=== PATIENT | male | born 1970 | race Caucasian/White ===

== ENCOUNTER → 2016-07-22 | Outpatient (CLI) | payer BC ==
[~2016-07-22] VITALS: Ht 182.9 cm; Wt 84.8 kg
[~2016-07-22] MED LIST: AMBIEN 5 MG TABL5 M1 PO; ANASPAZ0.125 MG SUBLING; APAP500 PO; ARANESP 6060 MCG/0.3 IJ; ARANESP40 MCG/1 M IJ; ATIVAN0.5 MG PO; BACTROBAN22 GM TOP; BENADRYL25 MG PO; BETADINE240 ML TP; BETADINE30 ML TOP; BETASEPT946 ML TOP; BISACODYL SUPP10 MG RECTAL; CATAPRES-TTS 10.1 M1 TRANSDERM; CHOLESTYRAMI239.4 GM PO; CREON DR 12,001 EACH PO; DAKIN'S473 M1 TOP; DEX4 GLUCOSE1 EACH; DEXTROSE 500.5 GM/M1 IV; DEXTROSE 5025 GM/SYR IV; DILAUDID4 MG PO; DURAGESIC25 MCG/HR TP; ENOXAPARIN30 MG/0.1 SUBQ; FENTANYL 1100 MCG/HR TRANSDERM; FENTANYL PA50 MCG/HR TRANSDERM; FENTANYL PATCH75 MCG TRANSDERM; FLORANEX PACKET1 GM PO; GABAPENTIN 100100 MG PO; GENTAMICIN 0.1%15 G2 TOP; GLUCAGON EMERGEN1 MG IJ; GLUCAGON EMERGEN1 MG IM; GLUCOSE BITS1 GM PO; GLUCOSE GEL38 GM; GLUCOSE GEL38 GM PO; HEPARIN 1,100 UNIT/1 IV; HYDROMORPHONE ER8 MG PO; IPRAT-ALBUT 0.5-3 ML IH; JUVEN PACKET1 EACH PO; KETOCONAZOLE60 GM TOP; LEVEMIR100 UNIT/1 SUBQ; LEVOTHYROXIN0.025 MG PO; LEVOTHYROXIN0.125 M1 PO; LEVOTHYROXINE 0.1 MG PO; LOMOTIL TABLET1 EACH PO; LOPERAMIDE 2 MG2 M1 PO; LOPRESSOR25 PO; MEPILEX1 EACH; MORPHINE 44 MG/1 ML IV; MORPHINE TOP; MS CONTIN15 MG PO; NEPHRO-VITE RX1 TA1 PO; NORVASC2.5 MG PO; NOVOLOG100 UNIT/1 SUBQ; ONDANSETRON HCL4 M2 SUBQ; ORAZINC220 MG PO; PEPCID20 MG PO; PROBIOTIC1 EAC1 PO; PROCRIT 1010000 U/ML SUBQ; REGLAN 10 MG TA10 MG PO; RENA-VITE TABL0.8 MG; RENO CAPS SOFTGE1 MG PO; RENVELA800 MG PO; SANTYL OINTMENT30 G1 TP; SERTRALINE HCL50 MG PO; SILVADENE20 GM TP; SSD CREAM 1% 5050 GM TOP; TRAZODONE HCL100 MG PO; TUMS PO; VANCOCIN 250 M250 M1 PO; VANCOMYCIN100 MG/ML PO; [UNRECOGNIZED DRUG - CODE] SUBQ; [UNRECOGNIZED DRUG - OTHER] TOP; [UNRECOGNIZED DRUG - SUPPLY] TP
[2016-07-22 13:13] VITALS: BP 149/75
[2016-07-22 14:15] VITALS: BP 138/75
== END | disposition home or self-care (01) ==
LOC: ULTRA 06:35 → SPEC 06:35
DX: E46 Unspecified protein-calorie malnutrition (principal)

== ENCOUNTER 2016-09-15 08:58 | Inpatient (IN) | payer BC, OTHER ==
[~2016-09-15] VITALS: Ht 182.9 cm; Wt 87.6 kg
[2016-09-15] VITALS (16 sets, daily range): BP systolic 66–164; BP diastolic 34–103
--- NOTE | ~2016-09-15 | HC ---
[facility] [place] [address] CONSULTATION Name: COYLEJOHANA Room #: 427-P [facility] IN .R.#: [id number] Admission: 09/15/16 Attend Phys: Celsa Alcantara Discharge: Date of : 68 Report #: [id number] THIS REPORT FOR: //name// CC: Norman Alcantara REASON FOR CONSULTATION: End-stage renal disease. REASON FOR PRESENTATION: Hypoxemia. HISTORY OF PRESENT ILLNESS: The patient is well known to me. He has a previous medical history of end-stage renal disease due to diabetes mellitus. He had numerous hospitalizations for many issues in the last year or so. Specifically, he was admitted with ischemic digits of both upper extremities and lower extremities. He also suffered from sacral decubitus ulcers. He had a gangrenous gallbladder that was complicated by peritonitis. He has transferred from the [facility] after being found to be hypoxic. He dialyzes every Monday, Monday and Monday. I was asked to manage his end-stage renal disease. He has been on dialysis for a long time. His end-stage renal disease was attributed to diabetes mellitus. He previously was on PD. On presentation to the Emergency Room, hypoxia was confirmed and he was placed on oxygen supplement and his oxygen saturation has improved significantly. On his chest CT ruled out pulmonary embolism. PAST MEDICAL HISTORY: 1. End-stage renal disease, on dialysis. 1. Hyperlipidemia. 2. Diabetes mellitus. 3. Remote history of peritoneal dialysis catheter insertion and removal. 4. Peripheral arterial disease with multiple ischemic digits and multiple amputations of the digits and the toes. 5. Peripheral arterial . 6. Sacral decubitus. 7. Perforated or gangrenous gallbladder. 8. Status post colostomy. 9. Status post PEG tube. 10. Left IJ tunneled catheter. ALLERGIES: GLUTEN. MEDICATIONS: 1. Included calcium acetate. 2. Metoprolol. 3. Insulin. 4. Multivitamin. FAMILY HISTORY: No known chronic family history, chronic kidney disease in his family. His grandfather was diabetic. [facility] [address] [place] [address] CONSULTATION Name: COYLEJOHANA Room #: 427-P [facility] IN .R.#: [id number] Admission: 09/15/16 Attend Phys: Celsa Alcantara Discharge: Date of : 68 Report #: [id number] REVIEW OF SYSTEMS: GENERAL: No fever or chills. CARDIOVASCULAR: No chest pain, but significant shortness of breath. PULMONARY: No cough or hemoptysis. GASTROINTESTINAL: No nausea or vomiting. He utilizes the PEG tube for tube feeding during the night. GENITOURINARY: No significant urine outputs. MUSCULOSKELETAL: As per the history of present illness regarding his . PHYSICAL EXAMINATION: GENERAL: He was alert, oriented, on high oxygen. VITAL SIGNS: His blood pressure was marginal at 105/70. He was on nonrebreather mask of 10 L. He was afebrile. CHEST: Minimal crackles. CARDIOVASCULAR: No rub detected, soft systolic murmur. ABDOMEN: Colostomy tube with a PEG tube. LOWER EXTREMITIES: Dressing applied with multiple missing digits and toes, in both upper and lower extremities. LABORATORY DATA: Reviewed. No elevated white blood cells. His potassium was fine. His chest CT was personally reviewed. ASSESSMENT, IMPRESSION AND PLAN: 1. End-stage renal disease. 2. Hypoxemia. 3. Brittle diabetes. 4. Peripheral arterial disease. 5. Sacral decubiti. 6. Status post colostomy. 7. Status post PEG tube. 8. Appropriate workup has been initiated. Cultures were obtained, appropriate antibiotics were started. We will attempt aggressive ultrafiltration in the morning. Might need sequential dialysis with aggressive ultrafiltration as this does not truly seemed to be pneumonitis picture, it is likely to be fluid overload. I will try to talk with his disaster director at [facility] regarding the ultrafiltration. 9. Resume his blood sugar regimen. 10. Routine end-stage renal disease care. <ELECTRONICALLY SIGNED> By: Ramakrishna Rivera MD 09/19/16 0745 [id number] Pollo Arenas MD /nt
--- NOTE | ~2016-09-15 | 2DMMODE ---
[facility] [place] [address] 2 D/M-MODE ECHOCARDIOGRAM Name: COYLEJOHANA Room #: 427-P [facility] IN [facility]#: [id number] Admission: 09/15/16 Attend Phys: Norman Baker Discharge: Date of : 68 Date of Service: 09/16/16 1607 Report #: [id number] THIS REPORT FOR: //name// APPROVED REPORT EXAM: Comprehensive 2D, Doppler, and color-flow Echocardiogram Patient Location: Bedside Blood Pressure: 132/72 mmHg HR: 92 bpm Other Information Study Quality: Excellent Indications Diabetes Congestive Heart Failure 2D Dimensions RVDd: 51.94 mm LVEF(%): 43.73 (>50%) IVSd: 15.20 (7-11mm) LVOT Diam: 25.07 (18-24mm) LVDd: 56.22 mm PWd: 15.41 (7-11mm) Ascending Aorta: 45.19 mm LVDs: 43.91 (25-40mm) IVC: 26.00 mm Aortic Root: 42.00 mm Jackson's LVEF: 43.73 % Volumes Left Atrial Volume (Systole) Single Plane 4CH: 105.84 mL Single Plane 2CH: 118.02 mL Aortic Valve AoV Peak Benoit.: 1.54 m/s AO Peak Gr.: 9.46 mmHg LV Max P.83 mmHg LV Max: 1.21 m/s Mitral Valve MV PHT: 107.04 ms MV E Max Benoit.: 1.34 m/s E/A Ratio: 0.9 MV A Benoit.: 1.52 m/s MV Decel. Time: 369.10 ms Pulmonary Valve PV Peak Benoit.: 1.37 m/s PV Peak Gr.: 3.44 mmHg [facility] [place] [address] [place] [address] 2 D/M-MODE ECHOCARDIOGRAM Name: JONNAJOHANA Room #: 427-P [facility] IN .R.#: [id number] Admission: 09/15/16 Attend Phys: Norman Baker Discharge: Date of : 68 Date of Service: 09/16/16 1607 Report #: [id number] End Vmax: 1.37 m/s Tricuspid Valve TR Peak Benoit.: 3.13 m/s RAP Estimate: 10.00 mmHg TR Peak Gr.: 39.14 mmHg Left Ventricle Left ventricle is borderline dilated. Global left ventricular dysfunction Mild to moderate concentric left ventricular hypertrophy. Left ventricular systolic function is moderately decreased. LVEF is 40%. Grade I - abnormal relaxation pattern. Right Ventricle Right ventricle is dilated. The right ventricular systolic function is normal. Atria Left atrium is dilated. Right atrium is dilated. Aortic Valve The aortic valve is mildly calcified Trace to mild aortic regurgitation. There is no aortic valvular stenosis. Mitral Valve Mild mitral annular calcification. Mild mitral regurgitation. Tricuspid Valve The tricuspid valve is normal in structure. There is trace tricuspid regurgitation. The right atrial pressure is estimated at 10 mmHg. There is trace tricuspid regurgitation. The right atrial pressure is estimated at 10 mmHg. There is mild-moderate pulmonary hypertension.The estimated PAP was 49 mmHg. Pulmonic Valve The pulmonary valve is normal in structure. Trace pulmonic regurgitation. Great Vessels The aortic root is normal in size. IVC is dilated and collapses >50% with inspiration. Pericardium There is no pericardial effusion. <Conclusion> [facility] [place] [address] 2 D/M-MODE ECHOCARDIOGRAM Name: JOHANA COYLE Debo Room #: 427-P ADM IN .R.#: [id number] Admission: 09/15/16 Attend Phys: Norman Baker Discharge: Date of : 68 Date of Service: 09/16/161606 Report #: [id number] Left ventricular systolic function is moderately decreased. Global left ventricular dysfunction. LVEF is 40%. Left atrium is dilated. The aortic valve is mildly calcified. Trace to mild aortic regurgitation; no stensis. Mild mitral annular calcification. Mild mitral regurgitation. The estimated pulmonary artery pressure was 49 mmHg. There is no pericardial effusion. Pleural effusion present. <ELECTRONICALLY SIGNED> By: Christ Lee MD, [facility] 09/16/161606 06 160 Christ Lee MD, FACC /INF
--- NOTE | ~2016-09-15 | H ---
[facility] [place] [address] HISTORY AND PHYSICAL Name: JOHANA COYLE Room #: 241-P ADM IN .R.#: [id number] Admission: 09/15/16 Attend Phys: Celsa Alcantara Discharge: Date of : 68 Report #: [id number] THIS REPORT FOR: //name// CC: Norman Alcantara DATE OF SERVICE: 09/15/2016 CHIEF COMPLAINT: Shortness of breath. HISTORY OF PRESENT ILLNESS: The patient is a 46-year-old gentleman with multiple medical problems who sent to the Emergency Room today from [facility] facility for evaluation of shortness of breath. Early this morning, he complained of trouble breathing and he was noted to have room air saturation of low 80s and ABG was performed which confirmed PO2 even on 10 liters nasal cannula of only 56. He was sent to the Emergency Room and a CT chest showed no pulmonary embolus, but diffuse fluffy infiltrates bilaterally. He is more comfortable on a nonrebreather currently. PAST MEDICAL HISTORY: Diabetes type 1, end-stage renal disease, peripheral artery disease. He has had multiple lower extremity amputations and finger amputations. He has had nonhealing abdominal small bowel fistula, anemia of chronic disease. PAST SURGICAL HISTORY: Multiple amputations, wound debridements. FAMILY HISTORY: Noncontributory. SOCIAL HISTORY: No chronic alcohol or tobacco use. He has been hospitalized for almost a year related to his wounds and dialysis. ALLERGIES: He has some food intolerances. MEDICATIONS: Please see electronic list. REVIEW OF SYSTEMS: He denies headache, chest pain, abdominal pain, nausea, vomiting, dysuria, syncope or fall. PHYSICAL EXAMINATION: VITAL SIGNS: Temperature 36.3, pulse 100, respirations 20, blood pressure 167/103. GENERAL: He is awake and alert, lying in bed. HEAD AND NECK: Unremarkable. LUNGS: Clear anteriorly. HEART: Regular. ABDOMEN: Soft, normoactive bowel sounds. PEG tube in place. Fistula bag continuing bowel contents. [facility] [address] [place] [address] HISTORY AND PHYSICAL Name: JOHANA COYLE Debo Room #: [facility] IN [facility].#: [id number] Admission: 09/15/16 Attend Phys: Celsa Alcantara Discharge: Date of : 68 Report #: [id number] EXTREMITIES: No edema. He has multiple finger amputations, bilateral. LABORATORY DATA: His white count is normal with hemoglobin 10. CTA of the chest shows extensive pulmonary infiltrates and effusions in the lung base. ASSESSMENT: 1. Acute hypoxic respiratory failure. 2. End-stage renal disease. 3. Diabetes type 1. 4. Peripheral artery disease with multiple amputations. 5. Chronic enterocutaneous abdominal wall fistula. 6. Anemia of chronic disease. PLAN: He will be admitted to ICU right now due to his general hypoxia or hypoxemia. Antibiotics have been ordered to cover for infectious process at this point, but given there is no fever, elevated white count, other etiologies including fluid overload or pleural effusions would be entertained. I have asked the pulmonary, renal and ID services to see him as well. Home medications and tube feeding to continue. <ELECTRONICALLY SIGNED> By: Bj Augustin MD 09/15/16 1852 [id number] [id number] Bj Augustin MD /nt
--- NOTE | ~2016-09-15 | HC ---
[facility] [place] [address] CONSULTATION Name: JOHANA COYLE Debo Room #: 427-P ADM IN M.R.#: [id number] Admission: 09/15/16 Attend Phys: Celsa Alcantara Discharge: Date of : 68 Report #: [id number] THIS REPORT FOR: //name// CC: Norman Alcantara DATE OF SERVICE: 09/16/2016 PERSONAL PHYSICIAN: Isaias Alcantara MD CHIEF COMPLAINT: Multiple decubitus ulcers. HISTORY OF PRESENT ILLNESS: This is a 46-year-old white male with a history of multiple medical conditions including end-stage renal disease, longstanding and uncontrolled diabetes mellitus and history of multiple decubitus ulcers who I have been taking care of for the past several months. The patient yesterday was at his long-term acute care facility when he was complaining of shortness of breath and had a significant drop in his O2 saturation. He was sent to the Emergency Department. They were looking for a pulmonary embolus of which none was found. However, there were diffuse infiltrates bilaterally noted. The patient was admitted to the intensive care unit. I have been asked to see the patient in regards to his ulcerations. The patient actually this morning was alert, conversant and in no severe distress. PAST MEDICAL HISTORY: Includes type 1 diabetes, end-stage renal disease, peripheral arterial disease, multiple lower extremity and finger amputations secondary to ischemia as well as history of anemia of chronic disease, multiple decubitus ulcers and is status post ileostomy, which has high output as well as a PEG tube placement. DRUG ALLERGIES: GLUTEN. CURRENT MEDICATIONS: Multiple, I reviewed the patient's medication list. REVIEW OF SYSTEMS: The patient denies chest pain, shortness of breath, nausea, vomiting, fevers or chills. The patient did have shortness of breath yesterday, this has now resolved. Denies musculoskeletal complaint. PHYSICAL EXAMINATION: VITAL SIGNS: Temperature 36.3, pulse 100, respirations 20, BP 167/103. GENERAL: This is an alert and oriented x 3, chronic ill-appearing white male who is in no acute distress at this time. HEENT: Normocephalic, atraumatic. Mucous membranes are dry. Pupils are round. Sclerae white. LUNGS: Coarse breath sounds at the bases. HEART: Tachycardic. ABDOMEN: Soft, ileostomy is in place with high output. PEG tube is in place [address] [address] CONSULTATION Name: JOHANA COYLE Room #: 427-P [facility].#: [id number] Admission: 09/15/16 Attend Phys: Celsa Alcantara Discharge: Date of : 68 Report #: [id number] without excoriation. Abdomen is otherwise nontender. Evaluation of sacrococcygeal reveals resolving stage 4 ulceration, which is clean, granulating. The edges are slightly rolled in. There are no signs of necrosis. There is no evidence of any odor, drainage of serosanguineous. No evidence of any bony involvement at this time. Periulcer is intact. EXTREMITIES: The patient moves all extremities spontaneously, however, has decreased movement of the lower extremities. Bilateral heels show unstageable decubitus ulcers with dry yellow eschar. There is also posterior calf and lateral lower extremity stage 3 decubitus ulcers, which are mixed with granulation tissue approximately 75% and 25% slough. NEUROLOGIC: Cranial nerves 2-12 are grossly intact. Motor and sensory grossly intact. LABORATORY DATA: White count 6.3, hemoglobin 9.6, glucose on admission was 399. IMPRESSION: 1. Stage 4 decubitus ulcer, sacrococcygeal region, overall improving. 2. Bilateral unstageable decubitus ulcers to heels, overall improved. 3. Bilateral lower extremity stage 3 decubitus ulcers in the posterolateral region of the lower extremities. 4. Diabetes mellitus type 1. 5. End-stage renal disease, on hemodialysis. 6. Protein-calorie malnutrition -- severe. 7. Generalized debility. PLAN: At this time, we will resume a wound VAC on the sacrococcygeal region, which is what the patient has been on at the [facility] where I have been following him. 125 mmHg continuous with black foam. We will start the patient on Mepilex Ag foam to the bilateral heels and posterior lower extremity ulcerations. Continue to have patient on low air loss mattress and the patient turned every 2 hours. We will use heel protection at all times. We will make sure we maximize the patient's tube feeding supplementation for protein, nutrition at night. The patient will be allowed to eat as much as he wants during the day on his renal and ADA diet. We will continue to follow the patient. I appreciate the ability to consult. By: [id number] Ryan Yen MD /nt
--- NOTE | ~2016-09-15 | HC ---
[facility] [place] [address] CONSULTATION Name: JOHANA COYLE Debo Room #: 427-P ADM IN .R.#: [id number] Admission: 09/15/16 Attend Phys: Celsa Alcantara Discharge: Date of : 68 Report #: [id number] THIS REPORT FOR: //name// CC: Norman Alcantara PRIMARY CARE PHYSICIAN: Dr. Norman Alcantara. REASON FOR REFERRAL: Hypoxia. HISTORY OF PRESENT ILLNESS: The patient is a 46-year-old white male with multiple medical problems, brought to the Emergency Room with hypoxia and dyspnea. A pulmonary consultation was requested. The patient has a long history of diabetes mellitus type 1 with comorbid conditions. He has end-stage renal disease, severe peripheral vascular disease requiring multiple partial amputation of his digits. He has also been very sick, past year having hospitalized for almost 3 months due to complications of his diabetes. The patient has end-stage renal disease, undergoing hemodialysis. He has sustained numerous wounds including intraabdominal abscess. He was last hospitalized in March of 2016. Since then he has done fair until the last few days, he started to feel uncomfortable. He was not hypoxic. Symptoms persisted were today his O2 saturation was checked and was said to be quite low. He was then transferred to the Emergency Room. CT chest angiogram performed in the ER revealed mild to moderate bilateral pleural effusion, mild bilateral infiltrates. No evidence of pulmonary embolus is noted. He is currently on nonrebreather. Saturation is adequate. He says he is short of breath, but denies any chest pain, productive cough. He has been bedridden for the last several months. He has obvious muscle atrophy. He has not walked for the last few months. PAST MEDICAL HISTORY: As mentioned above. Longstanding, he has diabetes mellitus type 1 with end-stage renal disease, peripheral vascular disease with ischemic digits requiring partial amputation involving both upper and lower digits. He has a tunneled right internal jugular vein catheter. In the past, he has had prior peritoneal dialysis, currently he is undergoing hemodialysis. PAST SURGICAL HISTORY: Remarkable for gastric bypass surgery, multiple ischemic wounds with partial amputation of multiple digits, prior cholecystectomy, right hip fracture repair, tib/fib fracture repair. ALLERGIES: Are none to medications. [address] [address] CONSULTATION Name: JOHANA COYLE Room #: 427-P [facility] IN ..#: [id number] Admission: 09/15/16 Attend Phys: Celsa Alcantara Discharge: Date of : 68 Report #: [id number] HOME MEDICATIONS: List are reviewed. FAMILY HISTORY: Notable for diabetes in both grandparents. Parents are alive. SOCIAL HISTORY: The patient is , has 2 children. The patient has been chronically debilitated over the last several months. REVIEW OF SYSTEMS: As mentioned above, otherwise 10-point system review negative. PHYSICAL EXAMINATION: GENERAL: He is awake, alert in moderate respiratory distress. VITAL SIGNS: Temperature is 94% on supplemental O2. Temperature is 98 degrees Fahrenheit, pulse is 100, respiratory rate is 20, blood pressure this 164/100 mmHg. HEENT: Normocephalic, atraumatic. NECK: Supple without lymphadenopathy or thyromegaly. CHEST: Breath sounds are decreased bilaterally due to poor effort. No obvious wheezes or rales. CARDIOVASCULAR: Regular rhythm and rate, heart sounds are distant. No obvious murmurs or gallop. Pulses are 2+/4 bilaterally. ABDOMEN: Soft, nontender, positive for colostomy. No masses felt. No rebound tenderness. GENITOURINARY: Deferred. RECTAL: Deferred. EXTREMITIES: No cyanosis or clubbing. MUSCULOSKELETAL: Remarkable for moderate muscle atrophy. LABORATORY DATA: CT chest angiogram as mentioned above showing no evidence of pulmonary embolus, extensive pulmonary infiltrates, bilateral pleural effusion. Sodium 135, potassium 4.3, chloride 102, CO2 26, BUN is 83, creatinine is 4.9. WBC is 5700, hemoglobin 10.4. IMPRESSION: 1. Acute hypoxic respiratory failure in this 46-year-old white male. Chest CT showed no evidence of pulmonary embolus, but remarkable for bilateral infiltrates and pleural effusion. Volume overload is suspected, but cannot rule out component pneumonia including gram-negative possible aspiration. 2. Diabetes mellitus type 1 with multiple end organ damage. 3. End-stage renal disease on hemodialysis. 4. Severe peripheral vascular disease with multiple partial digit amputation. 5. Chronic enterocutaneous abdominal fistula. 6. Anemia of chronic disease. 7. Debility and weakness along with muscle atrophy. RECOMMENDATION AND DISCUSSION: We will treat for presumed pneumonia. The [address] [address] CONSULTATION Name: JOHANA COYLE Debo Room #: 427-P ADM IN M.R.#: [id number] Admission: 09/15/16 Attend Phys: Celsa Alcantara Discharge: Date of : 68 Report #: [id number] patient should be seen by renal service for ongoing hemodialysis. Suspect patient may be volume overload. We will check echocardiogram. Wean O2 for saturation 90%. We will defer antibiotics to Infectious Disease. DVT and GI prophylaxis will be addressed. Thank you for this consultation. <ELECTRONICALLY SIGNED> By: Arcadio Colorado MD 09/16/16 1330 1447 [id number] Arcadio Colorado MD /nt
--- NOTE | ~2016-09-15 | HC ---
[facility] [place] [address] CONSULTATION Name: JOHANA COYLE Debo Room #: 241-P ADM IN M.R.#: [id number] Admission: 09/15/16 Attend Phys: Celsa Alcantara Discharge: Date of : 68 Report #: [id number] THIS REPORT FOR: //name// CC: Norman Alcantara DATE OF SERVICE: 09/15/2016 REASON FOR CONSULTATION: I was asked to evaluate concerning bilateral pulmonary infiltrates. 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 He has been residing at [facility] for last several months. He developed shortness of breath and was transferred to [facility] Emergency Room with O2 saturation dropping despite high flow oxygen. Imaging studies showed bilateral interstitial and basilar infiltrates associated with bilateral pleural effusions. He has had no cough or sputum production. No gross aspiration. No fever or chills. His white count has been normal. He does have evidence of facial and upper extremity edema. No change in his wounds involving his sacrum and his lower extremities. He has been followed by wound care team at [facility]. Several weeks ago, he finished a course of antibiotics for cystitis. PAST MEDICAL HISTORY, FAMILY HISTORY AND SOCIAL HISTORY: Unchanged from history and physical and the previous consultations. ALLERGIES: None other than intolerance. MEDICATIONS: As noted on his MAR, now on vancomycin, Zosyn and Levaquin. REVIEW OF SYSTEMS: He has end-stage renal disease. He has a left chest dialysis catheter, gastrostomy tube and ileostomy with dumping syndrome. He has significant lactose tolerance and gluten sensitivity. PHYSICAL EXAMINATION: VITAL SIGNS: He is afebrile, hemodynamically stable. Oxygen requirements have dropped down now to 6 liters of oxygen. GENERAL: He was alert, but moderate confusion. This is his baseline. SKIN: Upper extremity and facial edema. EYES: Unremarkable. MOUTH: Unremarkable. LUNGS: Decreased breath sounds bilaterally. HEART: Regular, without murmur. ABDOMEN: Soft. His ileostomy was functional. PEG site was unremarkable. EXTREMITIES: Wounds to both feet, heels and sacrum. He is bedbound. [facility] [address] [place] [address] CONSULTATION Name: JOHANA COYLE Room #: [facility] [place] [facility].#: [id number] Admission: 09/15/16 Attend Phys: Celsa Alcantara Discharge: Date of : 68 Report #: [id number] LABORATORY STUDIES: CT scan of the chest as noted above. Hemoglobin 10.4, white count 5.7, platelet count was 313,000. Sodium 135, potassium 4.3, bicarbonate 26, creatinine 4.9. IMPRESSION: Acute respiratory failure, marked by bilateral effusions and peripheral edema. I suspect fluid overload is a significant issue here. May have a component of pneumonitis as well. RECOMMENDATION: We will continue with broad antibiotic coverage. I doubt we are dealing with atypical bacteria. Continue with dialysis more fluid. Repeat chest x-ray post-dialysis. Continue current wound care. <ELECTRONICALLY SIGNED> By: Jorge Alcantara MD 09/16/16812 23 05 Jorge Alcantara MD /nt
[~2016-09-15 08:58] MED LIST changes: -BENADRYL25 MG PO; -MS CONTIN15 MG PO; -NORVASC2.5 MG PO; -REGLAN 10 MG TA10 MG PO
[2016-09-15 09:24] LABS: ABSOLUTE NEUTROPHILS 4.3 thou/uL (1.4-8.2); BASOPHILS 1.2 % (0.0-2.0); EOSINOPHILS 4.5 % (0.0-3.0); HEMATOCRIT 32.2 % (42.0-52.0); HEMOGLOBIN 10.4 gm/dL (14.0-18.0); MCH 31.4 pg (26.0-34.0); MCHC 32.2 g/dL (28.0-37.0); MCV 97.3 fL (80.0-100.0); MONOCYTES 6.1 % (1.0-8.0); PLATELET COUNT 313 thou/uL (150-400); POLYS 76.2 % (36.0-66.0); RBC 3.31 mil/uL (4.50-6.00); RDW 15.2 % (10.5-14.5); WBC 5.7 thou/uL (4.0-11.0)
[2016-09-15 09:26] LABS: MANUAL DIFF NO
[2016-09-15 09:35] LABS: CALCIUM 9.5 mg/dL (8.5-10.1); CREATININE 4.9 mg/dL (0.6-1.3); POTASSIUM 4.3 mmol/L (3.5-5.1)
[2016-09-15] MEDS ORDERED: NORVASC2.5 MG PO (10:24)
[2016-09-15] MEDS ORDERED: SANTYL OINTMENT30 G1 TP (10:27)
[2016-09-15] MEDS ORDERED: JUVEN PACKET1 EACH PO (10:29)
[2016-09-15] MEDS ORDERED: REGLAN 10 MG TA10 MG PO (10:29)
[2016-09-15] MEDS ORDERED: BENADRYL25 MG PO (10:32)
[2016-09-15] MEDS ORDERED: MS CONTIN15 MG PO (10:44)
[2016-09-16] VITALS (13 sets, daily range): BP systolic 100–163; BP diastolic 65–101
[2016-09-16 05:09] LABS: HEMATOCRIT 30.4 % (42.0-52.0); HEMOGLOBIN 9.6 gm/dL (14.0-18.0); MCH 30.9 pg (26.0-34.0); MCHC 31.5 g/dL (28.0-37.0); MCV 98.1 fL (80.0-100.0); RBC 3.1 mil/uL (4.50-6.00); RDW 15.4 % (10.5-14.5); WBC 6.3 thou/uL (4.0-11.0)
[2016-09-16 05:28] LABS: CALCIUM 9.1 mg/dL (8.5-10.1); CREATININE 5.4 mg/dL (0.6-1.3); POTASSIUM 5.1 mmol/L (3.5-5.1)
[2016-09-17 04:00] VITALS: BP 138/76
[2016-09-17 04:00] LABS: HEMATOCRIT 27.2 % (42.0-52.0); MCH 31.7 pg (26.0-34.0); MCV 96.3 fL (80.0-100.0); RBC 2.83 mil/uL (4.50-6.00); RDW 15.1 % (10.5-14.5); WBC 6.4 thou/uL (4.0-11.0)
[2016-09-17 04:34] LABS: CALCIUM 8.4 mg/dL (8.5-10.1); MAGNESIUM 2.1 mg/dL (1.8-2.4); PHOSPHORUS 4.9 mg/dL (2.5-4.9)
[2016-09-17 04:40] LABS: CREATININE 3.8 mg/dL (0.6-1.3)
[2016-09-17 07:47] VITALS: BP 123/65
[2016-09-17 15:28] VITALS: BP 127/72
[2016-09-17 19:31] VITALS: BP 141/90
[2016-09-18 04:09] VITALS: BP 128/84
[2016-09-18 16:15] VITALS: BP 150/111
[2016-09-18 20:00] VITALS: BP 129/84
[2016-09-19 05:45] VITALS: BP 123/83
[2016-09-19 08:19] VITALS: BP 132/83
[2016-09-19] MEDS ORDERED: AUGMENTIN 500-1 EACH PO (12:39)
[2016-09-19] MEDS ORDERED: FENTANYL PA25 MCG/HR TRANSDERM (12:40)
[2016-09-19 16:07] VITALS: BP 119/74
[2016-09-19 19:32] VITALS: BP 115/75
== END 2016-09-19 20:36 | DRG 291 ==
LOC: ER 08:58 → ICU 10:39 → EROBS 10:39 → ICU 12:52 → 4E 09-16 12:36
PROVIDERS: Emergency Medicine; Internal Medicine Geriatric Medicine; Internal Medicine Pulmonary Disease
PROC: 5A1D60Z (ICD-10-PCS; principal; 2016-09-16)
DX: I13.2 Hypertensive heart and chronic kidney disease with heart failure and with stage 5 chronic kidney disease, or end stage renal disease (principal); J18.9 Pneumonia, unspecified organism; J96.01 Acute respiratory failure with hypoxia; N18.6 End stage renal disease; L89.614 Pressure ulcer of right heel, stage 4; L89.624 Pressure ulcer of left heel, stage 4; L89.893 Pressure ulcer of other site, stage 3; E43 Unspecified severe protein-calorie malnutrition; K63.2 Fistula of intestine; E87.70 Fluid overload, unspecified; L89.159 Pressure ulcer of sacral region, unspecified stage; I50.9 Heart failure, unspecified; E10.22 Type 1 diabetes mellitus with diabetic chronic kidney disease; E10.51 Type 1 diabetes mellitus with diabetic peripheral angiopathy without gangrene; E10.65 Type 1 diabetes mellitus with hyperglycemia; R53.81 Other malaise; D63.1 Anemia in chronic kidney disease; M62.50 Muscle wasting and atrophy, not elsewhere classified, unspecified site; R53.1 Weakness; M19.90 Unspecified osteoarthritis, unspecified site; F41.9 Anxiety disorder, unspecified; F32.9 Major depressive disorder, single episode, unspecified; E03.9 Hypothyroidism, unspecified; R56.9 Unspecified convulsions; R91.8 Other nonspecific abnormal finding of lung field; Z99.2 Dependence on renal dialysis; Z98.84 Bariatric surgery status; Z93.3 Colostomy status; Z87.81 Personal history of (healed) traumatic fracture; Z89.429 Acquired absence of other toe(s), unspecified side; Z89.029 Acquired absence of unspecified finger(s); Z83.3 Family history of diabetes mellitus; Z90.79 Acquired absence of other genital organ(s); Z86.19 Personal history of other infectious and parasitic diseases; Z91.011 Allergy to milk products; Z91.018 Allergy to other foods; Z68.26 Body mass index [BMI] 26.0-26.9, adult
CPT/HCPCS: 10078; 10783; 32100

== ENCOUNTER → 2017-01-24 | Outpatient (CLI) | payer OTHER ==
[~2017-01-24] VITALS: Ht 182.9 cm; Wt 77.1 kg
[~2017-01-24] MED LIST changes: +AUGMENTIN 500-1 EACH PO; +BENADRYL25 MG PO; +FENTANYL PA25 MCG/HR TRANSDERM; +MS CONTIN15 MG PO; +NORVASC2.5 MG PO; +REGLAN 10 MG TA10 MG PO
[2017-01-24 12:31] VITALS: BP 118/64
== END | disposition home or self-care (01) ==
LOC: SPEC 11:28
DX: K91.89 Other postprocedural complications and disorders of digestive system (principal); E10.22 Type 1 diabetes mellitus with diabetic chronic kidney disease; I12.0 Hypertensive chronic kidney disease with stage 5 chronic kidney disease or end stage renal disease; N18.6 End stage renal disease; E10.65 Type 1 diabetes mellitus with hyperglycemia; M19.90 Unspecified osteoarthritis, unspecified site; F41.8 Other specified anxiety disorders; F32.89 Other specified depressive episodes; E03.9 Hypothyroidism, unspecified; Z98.890 Other specified postprocedural states; Z98.84 Bariatric surgery status; Z79.899 Other long term (current) drug therapy; Z91.011 Allergy to milk products; Z79.4 Long term (current) use of insulin; Z99.2 Dependence on renal dialysis

== ENCOUNTER 2017-02-02 16:23 | Inpatient (IN) | payer OTHER ==
[~2017-02-02] VITALS: Ht 182.9 cm; Wt 85.8 kg
--- NOTE | ~2017-02-02 | HC ---
[facility] [place] [address] CONSULTATION Name: JOHANA COYLE Debo Room #: 430-P [facility] IN .R.#: [id number] Admission: 02/02/17 Attend Phys: Tomy Morales MD Discharge: Date of : 68 Report #: [id number] THIS REPORT FOR: //name// CC: Tomy Ruby Sabih DATE OF SERVICE: 02/03/2017 WOUND CARE CONSULTATION HISTORY OF PRESENT ILLNESS: This is a 46-year-old male patient who has had left knee pain for the last several days. He was brought to the emergency department and was seen and found to have a septic arthritis and underwent an arthroscopic incision and drainage of the left knee. He has ongoing issues with pressure ulcerations on his heels and a stage 4 pressure ulcer on the sacrum and I have been asked to see him with regard to wound care. He is complaining of pain in his left knee as well as feeling febrile at this time. He is aware of the ulcerations on his heels and sacral region; these are not new for him. He has currently been living at [facility]. PAST MEDICAL HISTORY: Includes end-stage renal disease, long-standing uncontrolled diabetes mellitus and history of respiratory failure. ALLERGIES: GLUTEN. CURRENT MEDICATIONS: Include Zosyn, vancomycin, sliding scale insulin, hydromorphone and Zofran. FAMILY HISTORY: Noncontributory. REVIEW OF SYSTEMS: CONSTITUTIONAL: The patient does complain of fever and chills. ENT: The patient denies earache, nasal drainage or sore throat. CARDIOVASCULAR: The patient denies chest pain, palpitations or diaphoresis. PULMONARY: The patient denies cough or shortness of breath. GASTROINTESTINAL: The patient denies nausea or abdominal pain. ORTHOPEDIC: The patient has significant pain involving his left knee. Other systems and 12-point review of systems are negative. PHYSICAL EXAMINATION: VITAL SIGNS: At this time include pulse rate 86, respirations 16, blood pressure 110/58 and temperature 98.7. GENERAL: This is a chronically ill-appearing male patient who appears in mild discomfort. HEAD: Normocephalic. NECK: Supple. [facility] [address] [place] [address] CONSULTATION Name: JOHANA COYLE Room #: 430-P [facility] IN .R.#: [id number] Admission: 02/02/17 Attend Phys: Tomy Morales MD Discharge: Date of : 68 Report #: [id number] LUNGS: Clear. HEART: Regular rhythm. ABDOMEN: Soft. EXTREMITIES: Examination of the lower extremities demonstrates a knee brace and an Pradeep wrap in place in his left knee. There is some warmth and erythema to the lower leg. Both heels are examined and demonstrate unstageable pressure ulcerations across the large surface area of both heels, both a mix of fibrin, granulation and a little bit of eschar. No exposed bony structures noted at this time. BACK: Examination of the back and sacral region demonstrates a stage 4 sacral pressure ulceration that is relatively clean and granulating, with a little bit of undermining. No tunneling. No exposed deep structures. CLINICAL IMPRESSION: 1. Unstageable pressure ulcers, bilateral heels. 2. Stage 4 sacral pressure ulceration. 3. Septic arthritis, left knee. 4. Type 1 diabetes mellitus. 5. End-stage renal disease. RECOMMENDATIONS: At this point in time, we will recommend a silver foam-based dressing to the heels and Kerlix, to be changed on every other day and as needed basis for soiling or displacement. We will recommend Puracol Ag and a foam based dressing to the sacral region. He will need to be turned and repositioned every 2 hours. I anticipate orthopedics will continue to follow his knee with drain in place. I appreciate being asked to see him in consultation. <ELECTRONICALLY SIGNED> By: Ignacio Baeza MD 02/03/17 1256 1150 1216 Ignacio Baeza MD /nt
--- NOTE | ~2017-02-02 | HC ---
[facility] [address] [place] [address] CONSULTATION Name: JOHANA COYLE Room #: 430-P ADM IN M.R.#: [id number] Admission: 02/02/17 Attend Phys: Tomy Morales MD Discharge: Date of : 68 Report #: [id number] THIS REPORT FOR: //name// CC: Tomy Ruby Sabih DATE OF SERVICE: 02/05/2017 REASON FOR CONSULTATION: Hospital wound care of patient's bilateral heel and sacral wounds. HISTORY OF PRESENT ILLNESS: The patient is an unfortunate 46-year-old gentleman who is well known to the wound care team from multiple admissions, both at [facility], [facility], and [facility] in [place]. This gentleman suffers from end-stage renal disease, small-vessel disease, and has had multiple wounds and pressure wounds of the body most of which we have healed. He had pressures wounds of the bilateral lateral legs, which have healed. Remaining are bilateral heel wounds and a sacral wound. I last saw the patient at [facility] from which he was discharged and for the last month he has been at [facility]. The patient recently noticed redness, swelling, and tenderness of his left knee and was beginning to feel ill. He was brought to [facility], where he was taken to the operating room on February 02 and had arthroscopic incisions, drainage, and irrigation of a left knee septic arthritis with placement of a Hemovac drain, which has now been removed. The patient remains on IV antibiotics and feels better. Wound care is consulted to care for his wounds. It is noted that he has a right abdominal colostomy with some retraction and excoriation around the skin. The patient has been seen by the stoma nurse, Erlinda Carreno. I am seeing the patient at his bedside with his nurse. PAST MEDICAL HISTORY: 1. End-stage renal disease on hemodialysis. 2. Immobility. 3. Severe protein-calorie malnutrition. Albumin 2.1 on February 02. 4. Diabetes mellitus type 1 with skin ulcers. 5. History of respiratory failure. 6. Septic arthritis of left knee on this admission, treated by arthroscopic incision and drainage. 7. History of depression. MEDICATIONS: Include Glucagon, Creon, NovoLog insulin, insulin detemir, metoclopramide, Benadryl, gabapentin, sertraline, loperamide, Aranesp, levothyroxine, and human recombinant glucagon. PAST SURGICAL HISTORY: History of amputation of gangrenous fingertips. Surgical creation of colostomy. Arthroscopic incision and drainage of left knee [address] [address] CONSULTATION Name: JOHANA COYLE Room #: 430-P [facility] IN .R.#: [id number] Admission: 02/02/17 Attend Phys: Tomy Morales MD Discharge: Date of : 68 Report #: [id number] septic arthritis, February 02. History of penectomy status post gangrene at , 2016. Right hip nailing for fracture, October 2015. History of percutaneous gastrotomy tube, January 2016. PHYSICAL EXAMINATION: GENERAL: Shows a thin, chronically ill-appearing middle-aged male who is alert and conversant. He appears chronically depressed. HEENT: Mucous membranes are moist. NECK: Supple. EXTREMITIES: Upper extremities are normal. ABDOMEN: Shows presence of a colostomy on the right lower quadrant, abdomen is scaphoid. PEG tube is in the left upper quadrant. BACK: Examination of the patient's back shows a chronic stage 4 pressure ulcer measuring approximately 6 cm x 5 cm x 0.3 cm deep. This is relatively clean in line with granulation tissue and some exudate. MUSCULOSKELETAL: Examination of the lower extremities shows healed wounds to the lateral lower legs. There are bilateral deep tissue injuries of the right and the left heel, which are significant, each measuring approximately 4 x 5 cm with significant exudate. IMPRESSION AND PLAN: 1. Right lower quadrant colostomy with some dysfunction and retraction. Erlinda Carreno has seen the patient and is managing colostomy care. Surgeons may see the patient to decide upon any necessary revision. 2. Sacral stage 4 pressure ulcer, chronic, and stable. Continue sacral Mepilex dressing change every other day. 3. Bilateral heel deep tissue pressure injuries. Recommend, we will order Silvadene 1% with Xeroform dressings to be changed daily and bilateral foam boots. 4. Severe protein-calorie malnutrition, maximize nutrition through PEG tube feedings. 5. Left knee septic arthritis. I have not removed the surgeon's dressings; this could be done on Monday. Continue IV antibiotics. 6. End-stage renal disease, continue hemodialysis. 7. Diabetes type 1, diabetes management. Wound Care Team will follow for wounds of his bilateral heels and sacral pressure sore. <ELECTRONICALLY SIGNED> By: Nehemias Gannon MD 02/07/17 0909 1154 190 Nehemias Gannon MD /nt
--- NOTE | ~2017-02-02 | O ---
[facility] [place] [address] OPERATIVE REPORT Name: JOHANA COYLE Debo Room #: 430-P [facility] IN M.R.#: [id number] Admission: 02/02/17 Attend Phys: Zulma North Discharge: Date of : 68 Report #: [id number] THIS REPORT FOR: //name// CC: Zulma North Flori Sabih DATE OF SERVICE: 02/02/2017 DATE OF PROCEDURE: 02/02/2017 SERVICE: Orthopedics. FACILITY: [facility] SURGEON: Wyatt Box M.D. CAR REPOSSESSOR: None. PREOPERATIVE DIAGNOSIS: Left knee septic arthritis. POSTOPERATIVE DIAGNOSIS: Left knee septic arthritis. PROCEDURE: Arthroscopic left knee irrigation and debridement. COMPLICATIONS: None. DRAINS: One Hemovac. SPECIMENS: Aspirate and sent for cultures, aerobic, anaerobic and fungal. ESTIMATED BLOOD LOSS: 5 mL. TOURNIQUET TIME: Zero minutes. FINDINGS: 1. Gross purulence aspirated from the knee. 2. Nine liters of irrigation lavage through the knee. HISTORY AND INDICATIONS: The patient is a 46-year-old male with a history of advanced type 1 diabetes and end-stage renal disease. He presented to the emergency room with this painful swollen knee that was consistent with septic arthritis which is what the aspirate confirmed from the emergency room. He was indicated for surgical treatment. The risks, benefits, alternatives and indications for surgery were discussed with him in detail preoperatively and he wished to undergo surgical management. The risks include but not limited to pain, bleeding, infection, injury to nerves or blood vessels, persistent pain [facility] [address] [place] [address] OPERATIVE REPORT Name: JOHANA COYLE Debo Room #: 430-P [facility] IN M.R.#: [id number] Admission: 02/02/17 Attend Phys: Zulma North Discharge: Date of : 68 Report #: [id number] despite surgical intervention, failure of any procedures, need for further surgery including repeat I and D, progression of any preexisting cartilage, itch injury, stiffness, need for further surgery as well as complications related to anesthesia such as stroke, heart attack, pulmonary complications, thromboembolic disease, and . Despite these risks, he wished to proceed. PROCEDURE IN DETAIL: After left lower extremity was correctly identified in the preoperative holding area as the operative extremity, the patient was taken to the operating room where general anesthesia with LMA was induced without complications. He was padded appropriately. He was already receiving antibiotics from the emergency room after the aspiration. No tourniquet was applied to the left thigh. The left lower extremity was prepped and draped in standard sterile fashion. Time-out procedure was performed. An 18-gauge needle was used to aspirate 10 mL of purulent serosanguineous fluid from the knee and this was sent for Gram stain and culture and then an #11 blade was used to create 2 portal sites. A shaver and scope were placed into the knee and then extensive arthroscopic debridement was performed with the shaver. We lavaged a total of 9 liters of irrigant. After approximately 2 liters, the fluid was clear and continued to debride redundant material and lavaged through the knee to ensure clean wound at this point. The articular cartilage was intact except for some chondromalacia of the patellofemoral joint. The cruciates were intact. The menisci were intact. After the 9 liters were lavaged through the knee, the arthroscopic effusion was drained and 1/8th-inch Hemovac was passed through the anteromedial portal with a tail left intraarticularly out the superolateral aspect of the knee and then the portal sites were closed with a 2-0 nylon. A sterile dressing was applied followed by compression wrap. The patient was awakened from anesthesia and taken to recovery room in stable condition. There were no complications. All counts were recorded as correct. <ELECTRONICALLY SIGNED> By: Wyatt Box MD 02/03/17 0515 [id number] 0115 Wyatt Box MD /nt
--- NOTE | ~2017-02-02 | HC ---
[address] [place] [address] CONSULTATION Name: COYLEJOHANA Room #: 430-P [facility] IN M.R.#: [id number] Admission: 02/02/17 Attend Phys: Tomy Morales MD Discharge: Date of : 68 Report #: [id number] THIS REPORT FOR: //name// CC: Toym Mitchell REASON FOR CONSULTATION: End-stage renal disease. REASON FOR PRESENTATION: Left knee pain. HISTORY OF PRESENT ILLNESS: The patient is very well known to me. He is an end-stage renal disease patient, status maintained on hemodialysis every Monday, Monday, Monday. He is known to have a very complicated past medical history including and not limited to end-stage renal disease, repeated nosocomial infections, sacral decubitus, multiple amputations, peripheral arterial disease, C. diff. He resides at the [facility]. He started to have some left knee pain, associated with redness and increased warmth and fever and chills and presented for further evaluation and management. This had started about 2 days ago. No trauma. All stigmata were pointing to septic arthritis. Orthopedic was consulted on the patient. The patient was evaluated in the emergency room and had an aspirate consistent with pus and purulent discharge from the left knee. This was done arthroscopically. He had also irrigation and debridement. I was consulted to manage his end-stage renal disease. PAST MEDICAL HISTORY: 1. End-stage renal disease. 2. Diabetes mellitus. 3. Peripheral arterial disease. 4. Hypertension. 5. Hypothyroidism. 6. Diabetic triopathy. 7. Status post discectomy. 8. Status post peritonitis with PD catheter removal. 9. Gangrenous cholecystitis. 10. Multiple digits amputations. 11. Tenectomy. 12. C. diff. 13. Repeated episodes of diabetic ketoacidosis. 14. Repeated nosocomial infections. MEDICATIONS: 1. Clonidine. 2. Insulin. 3. Hydromorphone. 4. Gabapentin. 5. Loperamide. 6. Renagel. [facility] [address] [place] [address] CONSULTATION Name: JOHANA COYLE Room #: 430-P [facility] IN .R.#: [id number] Admission: 02/02/17 Attend Phys: Tomy Morales MD Discharge: Date of : 68 Report #: [id number] 7. Levothyroxine. ALLERGIES: GLUTEN and MILK. SOCIAL HISTORY: No drug or alcohol abuse. He resides at the [facility]. REVIEW OF SYSTEMS: CONSTITUTIONAL: Significant for fever. CARDIOVASCULAR: No chest pain or palpitation. PULMONARY: No cough or hemoptysis. GASTROINTESTINAL: No nausea or vomiting. GENITOURINARY: Nonsignificant. MUSCULOSKELETAL: Significant left knee pain. PHYSICAL EXAMINATION: GENERAL: The patient is somewhat lethargic. He received Dilaudid this morning. VITAL SIGNS: Temperature is 37.1. Blood pressure is 110/58, pulse rate is 86, respiratory rate is 22. His T-max was 38.4. HEAD AND NECK: No jugular venous distention. Right IJ tunneled catheter. CHEST: Decreased air entry bilaterally, but no crackles. CARDIOVASCULAR: Regular with no rub detected. ABDOMEN: Soft, nontender with no hepatosplenomegaly. There is a colostomy bag. LOWER EXTREMITIES: Braces applied to the left lower extremities, missing toes. LABORATORY VALUES: Reviewed. White blood cell count 17.9, hemoglobin 8.2, sodium 130, BUN 68, creatinine 5.5, phosphorus 5.7. Synovial fluid aspirate revealed 7500 cells with 90% neutrophils. ASSESSMENT, IMPRESSION AND PLAN: 1. End-stage renal disease. 2. Presumed septic arthritis. 3. Peripheral arterial disease. 4. Diabetes mellitus. 5. Leukocytosis. 6. Repeated nosocomial infections. 7. Status colostomy bag. 8. Numerous other medical problems. 9. Dialysis will be arranged for today. 10. Empiric antibiotics started yesterday. 11. Status post arthrocentesis yesterday. We will follow Gram strain culture and sensitivity. 12. Currently, maintained on vancomycin and Zosyn. [address] [address] CONSULTATION Name: JOHANA COYLE Room #: 430-P [facility] IN M.R.#: [id number] Admission: 02/02/17 Attend Phys: Tomy Morales MD Discharge: Date of : 68 Report #: [id number] 13. Hyponatremia related to fluid overload. 14. We will continue to follow along. <ELECTRONICALLY SIGNED> By: Pollo Arenas MD 02/04/17 1214 0747 [id number] Pollo Arenas MD /nt
--- NOTE | ~2017-02-02 | HC ---
[facility] [place] [place] [address] CONSULTATION Name: JOHANA COYLE Debo Room #: 430-P [facility] IN ..#: [id number] Admission: 02/02/17 Attend Phys: Tomy Morales MD Discharge: Date of : 68 Report #: [id number] THIS REPORT FOR: //name// CC: Tomy Morales Flori Sabih DATE OF SERVICE: 02/04/2017 GENERAL SURGERY CONSULTATION ATTENDING PHYSICIAN: Zulma North MD. REASON FOR CONSULTATION: Retracted colostomy. HISTORY OF PRESENT ILLNESS: This is a 46-year-old male patient, known to our service from previous end colostomy placement. The patient has a complex history including poorly controlled type 1 diabetes mellitus, end-stage renal disease with hemodialysis dependence and peripheral vascular disease. He has required numerous amputations of necrotic digits and his distal penis. He has also undergone a Ericka-en-Y gastric bypass for weight control and to improve his diabetes. He had developed nonhealing stage 4 decubitus wounds and underwent excisional debridement and creation of a diverting end transverse colostomy in the right upper quadrant on 03/25/2016 by my partner, Dr. Norma Zuniga. The patient is now admitted for left knee septic arthritis. He underwent arthroscopic left knee irrigation and debridement on 02/02/2017. We have been consulted to evaluate his colostomy. The stoma itself is retracted and the skin opening is quite small. Despite this, the stoma is functional. While at [facility] prior to his admission here, the opening for the appliance was larger than the skin opening and as a result, he has developed significant excoriation of the skin exposed to the stool. The patient only notes pain in the area when the stoma itself is manipulated. He is tolerating a regular diet. PAST MEDICAL HISTORY: Significant for type 1 diabetes mellitus, chronic kidney disease, end-stage renal disease with hemodialysis dependence, multiple wounds, protein-calorie malnutrition and septic arthritis. PAST SURGICAL HISTORY: Includes multiple lower extremity amputations, finger amputations, partial penectomy, open cholecystectomy with lysis of adhesions, gastrostomy placement into the gastric remnant (no longer present), excisional debridement of stage 4 decubitus wounds and end transverse colostomy creation. CURRENT MEDICATIONS: Include clonidine, sertraline, ferrous sulfate, Reglan, gabapentin, sevelamer, lipase/protease/amylase, levothyroxine, controlled-release morphine, detemir insulin, Zosyn, vancomycin and p.r.n. medications. [address] [address] CONSULTATION Name: JOHANA COYLE Debo Room #: 430-P [facility] IN [facility].#: [id number] Admission: 02/02/17 Attend Phys: Tomy Morales MD Discharge: Date of : 68 Report #: [id number] ALLERGIES: No known drug allergies. FAMILY HISTORY: Reviewed and noncontributory to this hospitalization. SOCIAL HISTORY: The patient is and has 2 children. Denies any use of tobacco, alcohol or illicit drugs. REVIEW OF SYSTEMS: As per history of present illness. In addition: GENERAL: The patient denies fever or chills. Denies unintentional weight loss. HEENT: Denies changes in taste, vision, hearing or smell. RESPIRATORY: Denies shortness of breath, COPD or asthma. CARDIOVASCULAR: Denies chest pain or palpitations. GASTROINTESTINAL: Denies significant abdominal pain, nausea or vomiting. GENITOURINARY: History of end-stage renal disease with hemodialysis dependence 3 times weekly. MUSCULOSKELETAL: Has chronic pain in his back and lower extremities with opioid dependence. NEUROLOGIC: Denies headaches, numbness or tingling. PSYCHIATRIC: Denies suicidal ideations. Has a history of depression. ENDOCRINE: Denies polydipsia, polyuria or heat or cold intolerance. HEMATOLOGIC: Denies easy bleeding, bruising or anemia. All other review of systems is negative. PHYSICAL EXAMINATION: VITAL SIGNS: Temperature 98.5, blood pressure 135/74, pulse 75 and respirations 16. GENERAL: This is a 46-year-old male patient in no acute distress. HEENT: Atraumatic, normocephalic with moist mucosal membranes. Oropharynx is clear. He has no scleral icterus. NECK: Supple. No appreciable lymphadenopathy. Trachea is midline. CHEST: Clear bilaterally. CARDIOVASCULAR: Regular rate and rhythm. ABDOMEN: Soft and nondistended. His right upper quadrant end transverse colostomy is functional; the skin opening is 1 to 1.5 cm, with no significantly exposed mucosa. There is mild excoriation of his surrounding skin. He has no rebound or guarding. No palpable masses otherwise. GENITOURINARY: Partial penectomy changes. NEUROLOGIC: Cranial nerves 2-12 grossly intact. PSYCHIATRIC: Normal mood and affect. SKIN/INTEGUMENTARY: No acute rashes or lesions are seen; coccygeal decubitus ulcer present. EXTREMITIES: No clubbing, cyanosis or edema; he has amputation changes. LABORATORY DATA: CBC from this morning shows a white blood cell count of 10.7, hemoglobin 8.2, hematocrit 25.1 and platelets 329,000. Electrolytes show sodium [address] [address] CONSULTATION Name: JOHANA COYLE Room #: 430-P ADM IN [facility].#: [id number] Admission: 02/02/17 Attend Phys: Tomy Morales MD Discharge: Date of : 68 Report #: [id number], potassium 3.4, chloride 95, CO2 of 28, BUN 35, creatinine 3.7 (5.5 yesterday) and glucose 281. Sed rate is 138. Blood cultures 02/02 are negative, showing no growth. IMPRESSION AND PLAN: This is a 46-year-old male patient with the above-listed comorbidities, who has a retracted stoma with a small opening. The patient's stoma is functional and he is tolerating a regular diet. He may benefit from revision of the stoma, but could try daily dilation of the stoma with specially- designed dilators. No acute surgical intervention is necessary at this time regarding his stoma. He also has decubitus ulcers, for which wound care has been consulted. We are available if needed for excisional debridement. We will follow along with you and make recommendations pending the patient's clinical course. Can continue his regular diet and nocturnal tube feeds as his bowels and stoma remain functional. Continue all other current care. We sincerely appreciate the opportunity to participate in the care of this patient and we will leave further recommendations and orders in the electronic medical record as appropriate. <ELECTRONICALLY SIGNED> By: Roel Rosen MD, FACS 02/05/17 0844 [id number] Roel Rosen MD, FACS /nt
--- NOTE | ~2017-02-02 | HC ---
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 He has currently been over at [facility], working in skilled level therapies. He was readmitted to [facility] with left knee pain, noted to have a septic left knee and underwent I and D on 02/02. Orthopedics is allowing removal of the immobilizer for range of motion. We are seeing him in rehabilitation medicine consultation. PAST MEDICAL HISTORY: Significant for the above. He has had a prior right femur fracture, healthcare-associated pneumonia, multiple wounds, severe protein-calorie malnutrition. He has the brittle diabetes as noted. MEDICATIONS: Please see the full medication listing. ALLERGIES: GLUTEN and MILK. FAMILY HISTORY: Positive for diabetes. HABITS: No history of tobacco, alcohol, or drug abuse. SOCIAL HISTORY Prolonged hospitalizations, LTAC nursing facility as noted above. His lives in a house, 3 floor, she is not currently working. The patient and are apparently planning on doing some kind of remodeling or some kind of changing of , so that the patient would eventually be able to return back to the home setting. REVIEW OF SYSTEMS: Did not offer any current complaints of chest pain, shortness of breath, or abdominal discomfort. He has some left knee discomfort as expected. He does have some discomfort over his sacral area and bilateral heels as expected. PHYSICAL EXAMINATION: GENERAL: A 46-year-old thin white male, currently being dialyzed. He is sleepy, but does respond. Appears appropriate. VITAL SIGNS: Temperature is 98.7, pulse 86, respirations 16, blood pressure 110/58. Nasal prong O2 is in place at 2 liters. HEENT: Facies appeared symmetric. EXTREMITIES: Upper extremities reveal some diffuse atrophy. He has had [facility] [address] [place] [address] CONSULTATION Name: JOHANA COYLE Room #: 430-P [facility] IN [facility].#: [id number] Admission: 02/02/17 Attend Phys: Tomy Morales MD Discharge: Date of : 68 Report #: [id number] multiple distal finger amputations that appear well healed. I would grade his strength at a 3+/5. In his lower extremities, he has the left knee, which is dressed. He has weakness of that left ankle in dorsiflexion, which appears less than antigravity, left ankle eversion is less than antigravity. He can wiggle the toes slightly. Proximal left lower extremity strength is probably a grade 3+/5 with some difficulty to assess with the discomfort with the left knee incision. Right lower extremity, he has better movement probably a grade 3+ to maybe 4-/5. He has definite decreased sensation distally with his peripheral neuropathy. Functionally, he has been mod assist with sit to stand. ASSESSMENT: A 46-year-old white male with the following problem list: 1. Septic left knee status post I and D on 02/02. 2. Brittle insulin-dependent diabetes mellitus. 3. End-stage renal disease, on hemodialysis. 4. Stage IV sacral and bilateral heel wounds. 5. Problem list otherwise as noted above. PLAN: I agree with physical therapy involvement. We will add occupational therapy as well. We would anticipate returning to the skilled level would be most appropriate for him. The patient appears amendable in this regard. Case management to further assist. Thank you for asking us to assist in this patient's care. By: 1416 1453 Bj Khalil MD /nt
--- NOTE | ~2017-02-02 | HC ---
[facility] [address] [place] [address] CONSULTATION Name: JOHANA COYLE Room #: 430-P [facility] IN M.R.#: [id number] Admission: 02/02/17 Attend Phys: Tomy Morales MD Discharge: Date of : 68 Report #: [id number] THIS REPORT FOR: //name// CC: Tomy [facility] INFECTIOUS DISEASES CONSULTATION REASON FOR CONSULTATION: I was asked to evaluate concerning left septic knee arthritis. HISTORY OF PRESENT ILLNESS: The patient was a 46-year-old with diabetes, peripheral vascular disease and end-stage renal disease, who has been institutionalized for extended period of time, mostly related to peripheral vascular wounds and osteomyelitis along with sacral decubitus. He has also had cholecystitis and a small bowel fistula. He was most recently at [facility] and making reasonable progress. He was stating he was getting out of bed and able to ambulate a fair distance with assistance. He had the acute onset of left knee pain several days prior to his admission. The swelling persisted and he presented to the emergency room for further evaluation. He had aspiration, which showed purulent fluid in the knee. He was taken to surgery yesterday for incision and drainage. Cultures now are pending and Gram stain shows no organisms. He has had low-grade fever. Hemodynamically, he has remained stable. No documented recent bacteremia. He has a history of MRSA in his wounds. ALLERGIES: GLUTEN, MILK. PAST MEDICAL HISTORY: Unchanged from his history and physical and that of his previous consultations. FAMILY HISTORY: Unchanged from his history and physical and that of his previous consultations. SOCIAL HISTORY: Unchanged from his history and physical and that of his previous consultations. MEDICATIONS: As noted on his MAR, which were reviewed, including vancomycin and Zosyn. REVIEW OF SYSTEMS: No current cardiovascular issues. His small bowel fistula remains stable. PHYSICAL EXAMINATION: VITAL SIGNS: Currently, afebrile, hemodynamically stable. He is alert and cooperative and pleasant. Maximum temperature was 101 degrees. SKIN: He had ulcers on both heels and a stage 4 sacral ulcer. [facility] [address] [place] [address] CONSULTATION Name: COYLEJOHANA Room #: 430-P [facility] IN [facility].#: [id number] Admission: 02/02/17 Attend Phys: Tomy Morales MD Discharge: Date of : 68 Report #: [id number] HEENT: Unremarkable. CHEST: Clear. HEART: Regular, without murmur. ABDOMEN: Soft. PEG site was unremarkable. His right upper abdomen ostomy site was unremarkable. Abdomen was otherwise soft and nontender. EXTREMITIES: Left knee was in surgical wrap. LABORATORY DATA: Sodium 138, potassium 4.3, bicarbonate of 20 and creatinine 5.5. Blood cultures negative. Gram stain, no organisms seen. Culture is pending. CRP 361. Lactate 1. Chest x-ray, no acute pulmonary infiltrates. IMPRESSION: A 46-year-old with end-stage renal disease, diabetes and multiple comorbidities, finding a left knees septic arthritis. Cultures are currently pending. He does have a history of methicillin-resistant Staphylococcus aureus involvement of his wounds. PLAN: Plan will be to continue vancomycin and Zosyn adjusted for his renal failure. We will await culture results and adjust his therapy accordingly. Anticipate 3-4 weeks of therapy depending upon his response. <ELECTRONICALLY SIGNED> By: Jorge Alcantara MD 02/06/17 1310 1440 1513 Jorge Alcantara MD /nt
[2017-02-02 17:00] LABS: HEMATOCRIT 27.7 % (42.0-52.0); MCH 33.3 pg (26.0-34.0); MCHC 32.6 g/dL (28.0-37.0); MCV 102.4 fL (80.0-100.0); PLATELET COUNT 301 thou/uL (150-400); RBC 2.71 mil/uL (4.50-6.00); RDW 15.9 % (10.5-14.5); WBC 16.7 thou/uL (4.0-11.0)
[2017-02-02 17:04] LABS: MANUAL DIFF YES
[2017-02-02 17:09] LABS: CALCIUM 9.4 mg/dL (8.5-10.1); CREATININE 4.8 mg/dL (0.7-1.3)
[2017-02-02 17:14] VITALS: BP 120/69
[2017-02-02 17:15] LABS: ALBUMIN 2.1 g/dL (3.4-5.0); TOTAL BILIRUBIN 0.5 mg/dL (<0.1-1.0); TOTAL PROTEIN 7.7 g/dL (6.4-8.2)
[2017-02-02 17:27] LABS: ABSOLUTE NEUTROPHILS 15.2 thou/uL (1.4-8.2); ANISOCYTOSIS SLIGHT; MACROCYTES 1+; PLATELET ESTIMATE NORMAL; TOTAL CELL COUNT 100
[2017-02-02 19:51] LABS: BF NUCLEATED CELLS 75081; BF RBC 53138
[2017-02-02 19:53] LABS: TOTAL VOLUME 7 mL
[2017-02-02 19:54] LABS: CLARITY CLOUDY; COLOR RED
[2017-02-02 20:41] VITALS: BP 111/60
[2017-02-02 21:25] LABS: MANUAL DIFF YES
[2017-02-02 21:26] LABS: BF NEUTROPHILS 90
[2017-02-02 21:29] LABS: BF COMMENTS 8 MONOCYTES
[2017-02-03 01:16] VITALS: BP 153/87
[2017-02-03 01:17] VITALS: BP 153/87
[2017-02-03 03:02] VITALS: BP 112/62
[2017-02-03 06:38] LABS: HEMOGLOBIN 8.2 gm/dL (14.0-18.0); MCH 32.7 pg (26.0-34.0); MCHC 31.3 g/dL (28.0-37.0); MCV 104.4 fL (80.0-100.0); RBC 2.49 mil/uL (4.50-6.00); RDW 16.2 % (10.5-14.5); WBC 17.9 thou/uL (4.0-11.0)
[2017-02-03 06:53] LABS: CALCIUM 9.1 mg/dL (8.5-10.1); CREATININE 5.5 mg/dL (0.7-1.3); MAGNESIUM 2.1 mg/dL (1.8-2.4); PHOSPHORUS 5.7 mg/dL (2.5-4.9); POTASSIUM 4.3 mmol/L (3.5-5.1)
[2017-02-03 07:33] VITALS: BP 110/58
[2017-02-03] MEDS ORDERED: NOVOLOG100 UNIT/1 SUBQ (11:32)
[2017-02-03] MEDS ORDERED: TYLENOL325 MG PO (11:38)
[2017-02-03] MEDS ORDERED: IRON325 PO (11:38)
[2017-02-03] MEDS ORDERED: DOXYCYCLINE 10100 MG PO (11:39)
[2017-02-03] MEDS ORDERED: MS CONTIN 30 MG30 M1 PO (11:40)
[2017-02-03] MEDS ORDERED: PROPRANOLOL 1010 MG PO (11:41)
[2017-02-03] MEDS ORDERED: VITAMINC500 PO (11:42)
[2017-02-03] MEDS ORDERED: ENOXAPARIN30 MG/0.1 SUBQ (11:42)
[2017-02-03] MEDS ORDERED: ACIDOPHILUS1 EAC3 PO (11:42)
[2017-02-03] MEDS ORDERED: FLORASTOR250 MG PO (11:43)
[2017-02-03] MEDS ORDERED: VITAMIN D1000 UNI1 PO (11:43)
[2017-02-03] MEDS ORDERED: ONDANSETRON HCL4 M2 PO (11:44)
[2017-02-03] MEDS ORDERED: BENEPROTEIN1 EACH PO (11:45)
[2017-02-03 16:55] VITALS: BP 103/65
[2017-02-03 19:28] VITALS: BP 85/52
[2017-02-04 03:28] VITALS: BP 125/82
[2017-02-04 03:53] LABS: CALCIUM 8.7 mg/dL (8.5-10.1); MAGNESIUM 1.9 mg/dL (1.8-2.4); POTASSIUM 3.4 mmol/L (3.5-5.1)
[2017-02-04 03:56] LABS: CREATININE 3.7 mg/dL (0.7-1.3)
[2017-02-04 04:03] LABS: HEMATOCRIT 25.1 % (42.0-52.0); HEMOGLOBIN 8.2 gm/dL (14.0-18.0); MCH 33.7 pg (26.0-34.0); MCHC 32.8 g/dL (28.0-37.0); MCV 102.8 fL (80.0-100.0); RBC 2.44 mil/uL (4.50-6.00); RDW 16.1 % (10.5-14.5); WBC 10.7 thou/uL (4.0-11.0)
[2017-02-04 08:13] VITALS: BP 135/74
[2017-02-04 17:24] VITALS: BP 162/85
[2017-02-04 20:14] VITALS: BP 154/84
[2017-02-05 03:50] LABS: HEMATOCRIT 25.6 % (42.0-52.0); HEMOGLOBIN 8.4 gm/dL (14.0-18.0); MCH 33.5 pg (26.0-34.0); MCHC 32.8 g/dL (28.0-37.0); MCV 101.9 fL (80.0-100.0); RBC 2.52 mil/uL (4.50-6.00); RDW 15.6 % (10.5-14.5); WBC 9.2 thou/uL (4.0-11.0)
[2017-02-05 03:55] LABS: CALCIUM 8.9 mg/dL (8.5-10.1); POTASSIUM 3.7 mmol/L (3.5-5.1)
[2017-02-05 04:03] LABS: CREATININE 4.9 mg/dL (0.7-1.3)
[2017-02-05 04:30] VITALS: BP 118/74
[2017-02-05 08:25] VITALS: BP 149/81
[2017-02-05 16:39] VITALS: BP 179/75
[2017-02-05 20:00] VITALS: BP 152/99
[2017-02-06 05:41] LABS: HEMATOCRIT 25.4 % (42.0-52.0); HEMOGLOBIN 8.5 gm/dL (14.0-18.0); MCH 33.6 pg (26.0-34.0); MCHC 33.2 g/dL (28.0-37.0); MCV 101.1 fL (80.0-100.0); RBC 2.52 mil/uL (4.50-6.00); RDW 15.7 % (10.5-14.5); WBC 7.8 thou/uL (4.0-11.0)
[2017-02-06 05:51] LABS: CALCIUM 8.7 mg/dL (8.5-10.1); POTASSIUM 4.3 mmol/L (3.5-5.1)
[2017-02-06 05:52] LABS: CREATININE 6.2 mg/dL (0.7-1.3)
[2017-02-06 06:00] VITALS: BP 133/75
[2017-02-06 08:33] VITALS: BP 170/87
[2017-02-06 08:50] VITALS: BP 114/70
[2017-02-06 15:38] VITALS: BP 118/79
[2017-02-06 20:00] VITALS: BP 153/99
[2017-02-07 04:35] VITALS: BP 137/77
[2017-02-07 06:43] LABS: HEMATOCRIT 25.7 % (42.0-52.0); HEMOGLOBIN 8.4 gm/dL (14.0-18.0); MCH 33.4 pg (26.0-34.0); MCHC 32.6 g/dL (28.0-37.0); MCV 102.5 fL (80.0-100.0); RBC 2.51 mil/uL (4.50-6.00); RDW 15.3 % (10.5-14.5); WBC 8.9 thou/uL (4.0-11.0)
[2017-02-07 06:54] LABS: POTASSIUM 4.2 mmol/L (3.5-5.1)
[2017-02-07 07:00] LABS: CREATININE 4.4 mg/dL (0.7-1.3)
[2017-02-07 09:04] VITALS: BP 111/67
[2017-02-07 17:31] VITALS: BP 151/90
[2017-02-07 20:00] VITALS: BP 123/69
[2017-02-08 05:00] VITALS: BP 132/91
[2017-02-08 07:13] VITALS: BP 127/84
[2017-02-08] MEDS ORDERED: CEPHALEXIN 500500 M3 PO (13:52)
[2017-02-08] MEDS ORDERED: ANCEF 1GM1 GM/50 M1 IV (13:54)
[2017-02-08] MEDS ORDERED: HUMALOG100 UNIT/1 SUBQ (13:56)
[2017-02-08 15:20] VITALS: BP 114/84
[2017-02-08 19:47] VITALS: BP 109/68
[2017-02-08 19:49] VITALS: BP 109/68
[2017-02-09 04:08] VITALS: BP 114/71
[2017-02-09 08:18] VITALS: BP 127/81
== END 2017-02-09 17:22 | DRG 485 ==
LOC: ER 16:23 → EROBS 20:21 → 4E 20:21 → TBACV 02-03 00:41 → 4E 02-03 00:50
PROVIDERS: Emergency Medicine; Internal Medicine; Nurse Practitioner Acute Care
PROC: 0S9D3ZZ Drainage of Left Knee Joint, Percutaneous Approach (ICD-10-PCS; principal; 2017-02-02)
PROC: 0S9D4ZX Drainage of Left Knee Joint, Percutaneous Endoscopic Approach, Diagnostic (ICD-10-PCS; principal; 2017-02-02)
PROC: 0QBF0ZZ Excision of Left Patella, Open Approach (ICD-10-PCS; 2017-02-02)
DX: M00.262 Other streptococcal arthritis, left knee (principal); N18.6 End stage renal disease; L89.154 Pressure ulcer of sacral region, stage 4; L89.623 Pressure ulcer of left heel, stage 3; L89.613 Pressure ulcer of right heel, stage 3; I12.0 Hypertensive chronic kidney disease with stage 5 chronic kidney disease or end stage renal disease; E87.1 Hypo-osmolality and hyponatremia; B95.1 Streptococcus, group B, as the cause of diseases classified elsewhere; M19.90 Unspecified osteoarthritis, unspecified site; F41.9 Anxiety disorder, unspecified; F32.9 Major depressive disorder, single episode, unspecified; E10.22 Type 1 diabetes mellitus with diabetic chronic kidney disease; E10.51 Type 1 diabetes mellitus with diabetic peripheral angiopathy without gangrene; D64.9 Anemia, unspecified; E03.9 Hypothyroidism, unspecified; Z98.84 Bariatric surgery status; Z87.81 Personal history of (healed) traumatic fracture; Z90.49 Acquired absence of other specified parts of digestive tract; Z88.8 Allergy status to other drugs, medicaments and biological substances; Z91.011 Allergy to milk products; Z99.2 Dependence on renal dialysis; Z79.4 Long term (current) use of insulin; Z79.899 Other long term (current) drug therapy; Z93.3 Colostomy status; Z83.3 Family history of diabetes mellitus
CPT/HCPCS: 10183; 32100; 50010; 50101; 50405; 51038; 56525; 56624; 62110; 62900; 70005

== ENCOUNTER 2017-05-27 18:20 | Inpatient (IN) | payer OTHER ==
[~2017-05-27] VITALS: Ht 182.9 cm; Wt 82.1 kg
--- NOTE | ~2017-05-27 | O ---
[facility] [place] [place] [address] OPERATIVE REPORT Name: JOHANA COYLE Room #: 423-1 ADM IN M.R.#: [id number] Admission: 05/27/17 Attend Phys: Tomy Morales MD Discharge: Date of : 68 Report #: [id number] THIS REPORT FOR: //name// CC: FAM unknown Tomy Morales DATE OF SERVICE: 06/12/2017 PREOPERATIVE DIAGNOSES: 1. Recurrent nonhealing stage 4 sacral decubitus wound with osteomyelitis. 2. Severe protein-calorie malnutrition. 3. Diabetes mellitus. 4. Generalized debility. POSTOPERATIVE DIAGNOSES: 1. Recurrent nonhealing stage 4 sacral decubitus wound with osteomyelitis. 2. Severe protein-calorie malnutrition. 3. Diabetes mellitus. 4. Generalized debility. PROCEDURES PERFORMED: Excisional debridement of skin, subcutaneous tissue, muscle and bone of a stage 4 sacral decubitus wound ultimately measuring 10.5 x 10 cm in dimension (105 cm2). Preoperative wound measurements were 10 x 9.5 cm in dimension with slight periwound necrosis. SURGEON: Norma Zuniga MD. MACHINE MAINTENANCE MECHANIC: Julio Olvera MS3. ANESTHESIA: General endotracheal anesthesia. ESTIMATED BLOOD LOSS: Minimal (less than 5 mL). COMPLICATIONS: None appreciated. SPECIMENS: Excised bone to Microbiology for culture and sensitivity. INDICATIONS: The patient is a 47-year-old male well known to me from multiple prior debridements and diverting colostomy several years ago secondary to large chronic nonhealing sacral and dependent decubitus wounds. The patient was healing up with aggressive local wound care and transitioned to home and unfortunately has promptly been readmitted with debility and recurrent issues with his wounds that show periwound necrosis that required repeat debridement. MRI shows osteomyelitis with a fistula tract from his superficial wound tracking to the bone. [address] [address] OPERATIVE REPORT Name: JOHANA COYLE Room #: 423-1 ADM IN M.R.#: [id number] Admission: 05/27/17 Attend Phys: Tomy Morales MD Discharge: Date of : 68 Report #: [id number] DESCRIPTION OF PROCEDURE: After explaining the risks, benefits and alternatives of the procedure with the patient in detail in the preoperative holding area and obtaining written consent, the patient was brought to the operating room and placed supine on the operating room table. After conducting a thorough timeout procedure verifying correct patient and procedure, the patient was given general endotracheal anesthesia. Once adequate anesthesia was obtained, SCDs were placed on the patient's bilateral lower extremities and he was given a preoperative dose of antibiotics in line with the SCIP protocol. The patient was now positioned in the prone position with all pressure points appropriately padded on the operating room table and his sacral wound was prepped and draped in the standard surgical sterile fashion. Electrocautery was now used to circumferentially debride all nonviable skin, subcutaneous tissue and muscle from the periphery of the wound back to healthy bleeding vascularized tissue and this was carried down into the bed of the wound all the way to bone at the tip of the sacrum. Rongeurs were used to excise soft spongy nonviable bone and this was passed off the field for microbiologic analysis. Hemostasis was assured with electrocautery throughout. I now used the Upward Mobility ultrasonic debridement tool to remove all biofilm and remaining necrotic tissue from the entirety of the wound. Thrombin spray was then placed on the wound and pressure was held for 5 minutes to ensure no bleeding. At the completion of the procedure, we had complete hemostasis and no further nonviable tissue was seen. The wound was then dressed with sterile saline soaked Kerlix, 4 x 4s, ABDs and Medipore tape completing the procedure. At the end of the procedure, all instrument, needle and sponge counts were correct. The patient tolerated the procedure without incident, was awakened in the operating room and transitioned to the recovery room in stable condition with no apparent complications. <ELECTRONICALLY SIGNED> By: Norma Zuniga MD, FACS 06/13/17 1522 0725 [id number] Norma Zuniga MD, FACS /nt
--- NOTE | ~2017-05-27 | HC ---
[facility] [address] CONSULTATION Name: JOHANA COYLE Room #: 423-1 ADM IN M.R.#: [id number] Admission: 05/27/17 Attend Phys: Tomy Morales MD Discharge: Date of : 68 Report #: [id number] THIS REPORT FOR: //name// CC: FAM unknown Tomy Morales DATE OF SERVICE: 05/29/2017 PERSONAL PHYSICIAN: Tomy Morales MD CHIEF COMPLAINT: Multiple wounds. HISTORY OF PRESENT ILLNESS: This is a 47-year-old white male with longstanding history of diabetes and end-stage renal disease, on hemodialysis, who I have been following for approximately the past year and a half for multiple decubitus ulcers involving his sacral region, bilateral heels, bilateral calf areas and intermittently his hips. The patient also has required amputation of multiple digits secondary to ischemia. We have been following him in rehab for the past several months and the actually the patient just went home this past Monday and was hold for less than 24 hours where he got to the point where he was so weak he could not walk. The patient states he dragged himself across the floor and at some point in time actually partially avulsed his great toenail. The patient states due to the severe weakness, he was brought back to the hospital at [place] for further evaluation, admission, rehabilitation and possibly placement. We have been asked to follow the wounds at this time. PAST MEDICAL HISTORY: Significant for end-stage renal disease, on hemodialysis; chronic insulin-dependent diabetes for multiple years; history of decubitus ulcers to the bilateral heels, coccyx, intermittently bilateral calves and bilateral hips. The patient has had multiple amputations of fingertips and toes secondary to ischemia. The patient also has had a colostomy performed as well as a feeding tube placement. The patient also has a history of severe protein-calorie malnutrition. MEDICATIONS: He is on multiple medications. I have reviewed the patient's medication list. DRUG ALLERGIES: GLUTEN AND TO MILK. SOCIAL HISTORY: The patient does not smoke or drink alcohol, has been basically institutionalized or hospitalized for the past 2 years. FAMILY HISTORY: Not pertinent to current medical condition. REVIEW OF SYSTEMS: CONSTITUTIONAL: The patient denies numbness, tingling. The patient does have [facility] [address] [place] [address] CONSULTATION Name: JOHANA COYLE Room #: 423-1 ADM IN M.R.#: [id number] Admission: 05/27/17 Attend Phys: Tomy Morales MD Discharge: Date of : 68 Report #: [id number] complaints of overall generalized weakness. EYES: No complaints. ENT: No complaints. CARDIAC: The patient denies chest pain, palpitations. Does have chronic lower extremity edema. RESPIRATORY: The patient denies shortness of breath, cough or wheezes. GASTROINTESTINAL: The patient denies nausea, vomiting, but does have decreased appetite. GENITOURINARY: The patient denies urgency or frequency. MUSCULOSKELETAL: No complaints. SKIN: There is a decubitus ulcer stage 4 in the sacrococcygeal area, stage 3 to the right hip and left lateral leg and an unstageable ulceration to his right heel. The patient also had a partially avulsed right great toenail. PHYSICAL EXAMINATION: VITAL SIGNS: Stable and ____ 36.3. GENERAL: This is an alert and oriented x 3, chronically ill appearing white male who is in no obvious distress. HEENT: Normocephalic, atraumatic. Mucous membranes are dry. Pupils are round. Sclerae are white. NECK: Shows no obvious JVD and is otherwise supple. BACK: Nontender. LUNGS: Slight diminished breath sounds heard in the bases. CHEST: Nontender. HEART: Regular without murmur. ABDOMEN: Soft. PEG tube is in place. MUSCULOSKELETAL: The patient moves all extremities spontaneously; however, on the right heel, there is an unstageable decubitus ulcer which is 100% sloughed, but no other associated ulcerations are noted on the rest of the right foot except for the partially avulsed right toenail. Evaluation of left heel reveals a previous decubitus ulcer that is noted to now be healed. Rest of the foot and toes are intact, along the lateral aspect of the left calf has a stage 3 decubitus ulcer which is mix of granulation tissue approximately 75%-25% loosely yellow slough without signs of infection. There is a serosanguineous drainage noted without odor. Evaluation of right lateral hip has a stage 3 decubitus ulcer, which is clean and granulating with serosanguineous drainage noted without odor or signs of infection. The sacrococcygeal area has a stage 4 decubitus ulcer, which is somewhat broken down and larger than the last evaluation approximately a month ago. Periulcer itself is intact with some rolled edges and mildly ecchymotic around the outside. There is no evidence of any palpable bone at this time; however, there has been in the past. Some moderate amount of serosanguineous drainage noted without odor and there are no signs of cellulitis. NEUROLOGIC: Cranial nerves 2-12 are grossly intact. Motor and sensory grossly intact. [facility] [address] [place] [address] CONSULTATION Name: JOHANA COYLE Room #: 423-1 ADM IN [facility].#: [id number] Admission: 05/27/17 Attend Phys: Tomy Morales MD Discharge: Date of : 68 Report #: [id number] LABORATORY VALUES: White count 5.8, hemoglobin 9.5. BUN 35, creatinine 5.4. Albumin is low at 1.9. IMPRESSION: 1. Unstageable decubitus ulcer, right heel, present on admission. 2. Stage 3 decubitus ulcer, left lateral calf, present on admission. 3. Stage 3 decubitus ulcer, right lateral hip, present on admission. 4. Stage 4 decubitus ulcer, sacrococcygeal region, present on admission. 5. Severe protein-calorie malnutrition, albumin 1.9. 6. Diabetes mellitus. 7. Partially avulsed right great toenail. 8. End-stage renal disease, on hemodialysis. 9. Generalized debility--severe. PLAN: At this time, we will start Dakin's quarter strength solution to all open ulcerations to see if we can clean this up slightly in the next couple of days and then need more aggressive dressing changes. We will put the patient on low air loss mattress, have him be turned every 2 hours. Right great toenail was removed in a procedure in total. Please see procedure note separately. We will start gentamicin to the right great toe wound, cover this with dry gauze and secure with tape. This will be changed daily. We will make sure we maximize the patient's oral supplementation of protein for healing. Try to utilize physical and occupational therapy for strengthening and at some point in time, we will get case management involve in discharge planning. <ELECTRONICALLY SIGNED> By: Ryan Yen MD 06/22/17 1132 1701 2349 Ryan Yen MD /nt
--- NOTE | ~2017-05-27 | HC ---
[facility] [place] [address] CONSULTATION Name: JOHANA COYLE Room #: 237-P ADM IN M.R.#: [id number] Admission: 05/27/17 Attend Phys: Tomy Morales MD Discharge: Date of : 68 Report #: [id number] THIS REPORT FOR: //name// CC: FAM unknown Tomy Morales REASON FOR CONSULTATION: I was asked to evaluate concerning possible sepsis. HISTORY OF PRESENT ILLNESS: The patient is a 47-year-old with longstanding diabetes, end-stage renal disease who was on hemodialysis. He has a significant peripheral vascular disease. He has had multiple digits amputated. He has a nonhealing sacral wound and right heel wound. He was hospitalized on 05/29/2017 with failure to thrive at home. He was discharged from [facility] and lasted only about 24 hours when he was unable to get out of bed. Apparently, he dragged himself across the floor. Generalized weakness was noted and he was transferred to [facility] Emergency Room. Since being here, he has been on dialysis, receiving wound care. Placement has been an issue due to his insurance. This morning, he became hypotensive, bradycardic and very lethargic. He received IV fluid boluses, was transferred down to the intensive care unit, given Narcan and noticed marked improvement in his mental status as well as his blood pressure. No cough or sputum production. No nausea, vomiting. He has a transverse colon colostomy, which is functioning well. He has a right chest dialysis catheter in place, which is functioning. He did undergo CRRT this morning after this event. Lasted several hours on this. There has been no change in his wounds. ALLERGIES: MARKED INTOLERANCE TO GLUTEN AND LACTOSE INTOLERANCE. He has had a previous gastric bypass. PAST MEDICAL HISTORY, FAMILY HISTORY AND SOCIAL HISTORY: Unchanged from a previous consultation. REVIEW OF SYSTEMS: As noted above. PHYSICAL EXAMINATION: VITAL SIGNS: He was hypothermic, now 36.1. Blood pressure is back in the 90s. GENERAL: He was alert and responsive. When not stimulated, he would jerked off to sleep. He did have repeated myoclonic jerk activities. HEENT: Unremarkable. NECK: Supple. LUNGS: Few crackles in the bases bilaterally. HEART: Regular without appreciable murmur. ABDOMEN: Soft and nontender. His ostomy site was unremarkable. SKIN: Sacral wound was large, had no purulent drainage. It was stage 4. Stage 4 right heel wound with reasonable granulation tissue. No surrounding cellulitis or purulent drainage. Right great toe avulsed nail. [address] [address] CONSULTATION Name: JOHANA COYLE Room #: 237-P [facility] IN M.R.#: [id number] Admission: 05/27/17 Attend Phys: Tomy Morales MD Discharge: Date of : 68 Report #: [id number] LABORATORY STUDIES: Sodium 134, potassium 4.8, bicarbonate 24, creatinine 7.3, blood glucose 170-280 range. ALT of 11. Hemoglobin 7.4, WBC 9.3, unremarkable differential, platelet count 229,000. Chest x-ray had basilar atelectasis. Procal is 3.2. IMPRESSION: Acute change in mental status with hypotension, may well be related to narcotic use and poor clearance of drug. Procalcitonin, however, is elevated which would suggest component of infection. Hard to know in this gentleman who is very compromised and has no significant reserve. He was empirically placed on vancomycin, Zosyn and micafungin pending chest x-ray, blood cultures and fluid bolus. I would recommend that we continue this pending further cultures. We will check laboratory studies in the morning including a procalcitonin. <ELECTRONICALLY SIGNED> By: Jorge Alcantara MD 06/07/17 0952 1607 0350 Jorge Alcantara MD /nt
--- NOTE | ~2017-05-27 | EKG ---
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: [id number] : 1970 Requested By: Mary Pedraza Order Number: [id number] MD: Norman Boateng Measurements Intervals [place] Rate: 74 P: 1 WI: 146 QRS: -18 QRSD: 95 T: 37 QT: 424 QTc: 471 Interpretive Statements Sinus rhythm Borderline left axis deviation Anteroseptal infarct, old Compared to ECG 03/26/2016 07:55:32 Myocardial infarct finding now present Electronically Signed On 05-28-2017 16:07:31 DIPLOMA DENTAL ASSISTANT by Norman Boateng [email or web address] <ELECTRONICALLY SIGNED> By: Norman Boateng MD 05/28/17 1607 1846 1846 Norman Boateng MD /EPI
--- NOTE | ~2017-05-27 | HC ---
[facility] [place] [address] CONSULTATION Name: JOHANA COYLE Room #: 423-1 ADM IN M.R.#: [id number] Admission: 05/27/17 Attend Phys: Tomy Morales MD Discharge: Date of : 68 Report #: [id number] THIS REPORT FOR: //name// CC: FAM unknown Tomy Morales DATE OF SERVICE: 06/08/2017 REFERRING PROVIDER: Tomy Morales MD REASON FOR CONSULT: Multiple decubitus wounds. HISTORY OF PRESENT ILLNESS: The patient is a 47-year-old male with a long-standing history of diabetes and end-stage renal disease, on hemodialysis, who I have seen on numerous prior occasions for multiple decubitus ulcers, involving his sacral region, bilateral ischial regions and lower extremity wounds. The patient has undergone multiple amputations of several digits as well as his penis secondary to ischemia. The patient recently discharged to home from long-standing inpatient rehabilitation and unfortunately became so weak at home, he presents back to the hospital once again. The patient's wounds show recurrent necrosis with osteomyelitis and request was made for possible debridement. PAST MEDICAL HISTORY: End-stage renal disease, on hemodialysis; insulin-dependent diabetes mellitus; multiple decubitus wounds; multiple amputations; colostomy; PEG tube placement; and severe protein calorie malnutrition. HOME MEDICATIONS: Propranolol, Neurontin, Aranesp, Lovenox, MiraLax, insulin, hydralazine, lisinopril, MS Contin, Reglan, Renvela, vitamin C, vitamin D3, zinc, Zoloft, Zyprexa, Creon, Dilaudid, Synthroid, Nephrocaps. ALLERGIES: GLUTEN and MILK. FAMILY HISTORY: Reviewed and noncontributory. SOCIAL HISTORY: The patient does not currently use tobacco or alcohol or illicit drugs. REVIEW OF SYSTEMS: GENERAL: The patient denies nocturnal fevers or chills. HEENT: No change in vision, change in hearing. NECK: No swelling or difficulty swallowing. HEART: No chest pain or palpitations. LUNGS: No cough or shortness of breath. ABDOMEN: No nausea, no vomiting. [address] [address] CONSULTATION Name: JOHANA COYLE Room #: 423-1 ADM IN M.R.#: [id number] Admission: 05/27/17 Attend Phys: Tomy Morales MD Discharge: Date of : 68 Report #: [id number] GENITOURINARY: No dysuria or hematuria. ENDOCRINE: No polyuria, polydipsia. HEMATOLOGIC: No history of bleeding or easy bruising. EXTREMITIES: No history of weakness or limited range of motion. NEUROLOGIC: No history of syncope or near syncopal episodes. SKIN AND INTEGUMENT: Long-standing history of decubitus wounds. PSYCHIATRIC: History of depression and anxiety. PHYSICAL EXAMINATION: VITAL SIGNS: Temperature 97.5, pulse 73, respirations 20, blood pressure 152/76. GENERAL: Alert, in no acute distress. HEENT: Normocephalic, atraumatic. Pupils equal, round, reactive to light. NECK: Supple, without lymphadenopathy. Trachea midline. HEART: Regular rate and rhythm. LUNGS: Clear to auscultation bilaterally. ABDOMEN: Soft, nontender, nondistended. Colostomy is pink, patent and functional. PEG tube is intact and functional. GENITOURINARY: Normal external male genitalia with the exception of his penectomy that is well healed. EXTREMITIES: No clubbing, cyanosis or edema. NEUROLOGIC: Cranial nerves 2-12 are grossly intact. PSYCHIATRIC: Normal mood and affect. SKIN AND INTEGUMENT: Right ischium shows a stage 3 decubitus wound with serosanguineous drainage. Sacrococcygeal region has a stage 4 wound with broken down tissue, slightly necrotic with rolled edges and ecchymosis. LABORATORY AND X-RAY DATA: CBC yesterday showed a white blood cell count of 5.6 thousand; hemoglobin 7.8; platelets 234,000. Creatinine is 6.6, glucose was 264. MRI of the pelvis shows a sacral ulcer with a fistula to the coccyx with marrow edema consistent with osteomyelitis. ASSESSMENT AND PLAN: A 47-year-old male with a long-standing history of numerous decubitus wounds; as well as end-stage renal disease, on hemodialysis; and type 1 diabetes mellitus. The patient has overall generalized debilitation, protein calorie malnutrition and very labile blood sugars. He has recurrent necrosis to his sacral gluteal wound with osteomyelitis seen on MRI. The patient would benefit from repeat excisional debridement of this wound and as such, we will proceed to the operating room at the first available opportunity. Until that time, the patient should continue aggressive local wound care, offloading his wound, optimizing nutritional status and antibiotics per the direction of Infectious Disease. [address] [address] CONSULTATION Name: JOHANA COYLE Room #: 423-1 ADM IN M.R.#: [id number] Admission: 05/27/17 Attend Phys: Tomy Morales MD Discharge: Date of : 68 Report #: [id number] I sincerely appreciate this consult. I will follow closely and leave any further recommendations in the patient's chart as appropriate. <ELECTRONICALLY SIGNED> By: Norma Zuniga MD, FACS 06/12/17 0755 1008 1149 Norma Zuniga MD, FACS /nt
--- NOTE | ~2017-05-27 | P ---
[facility] [place] [address] PROCEDURE REPORT Name: JOHANA COYLE Room #: 423-1 ADM IN M.R.#: [id number] Admission: 05/27/17 Attend Phys: Tomy Morales MD Discharge: Date of : 68 Report #: [id number] THIS REPORT FOR: //name// CC: FAM unknown Tomy Morales DATE OF SERVICE: 05/29/2017 WOUND CARE PROCEDURE NOTE PERSONAL PHYSICIAN: Tomy Morales MD CHIEF COMPLAINT: Partial right great toenail avulsion. HISTORY OF PRESENT ILLNESS: This is a 47-year-old white male with a longstanding history of diabetes, end-stage renal disease and has been in the rehab hospital for approximately a year and half. The patient was just discharged to home this past Monday and while at home less than 24 hours, developed such severe weakness that he was having to drag himself across the floor. The patient thinks that he stubbed his great toe during that event. The patient has significant neuropathy in his lower extremities and does not even know that he had done this until he got to the hospital and the nurses commented that there was blood on his right great toenail. On exam now, the patient has a partially avulsed great toenail without signs of infection or active bleeding. PREPROCEDURE DIAGNOSES: 1. Partially avulsed right great toenail. 2. Diabetes mellitus. 3. End-stage renal disease, on hemodialysis. POSTPROCEDURE DIAGNOSES: 1. Partially avulsed right great toenail. 2. Diabetes mellitus. 3. End-stage renal disease, on hemodialysis. DESCRIPTION OF PROCEDURE: After timeout was taken, verbal consent was obtained. The patient had removal of that nail in total using a forceps and a #15 blade. The entire nail was removed without difficulty. After the removal, the patient had the area cleaned with Betadine and then dressed with gentamicin and gauze. We will continue with gentamicin and gauze on a daily basis. We will continue to watch this. There was no anesthesia used. There was no bleeding. The patient tolerated the procedure well. IMPRESSION: 1. Removal of right great toenail secondary to a partial avulsion. 2. Diabetes mellitus. [address] [address] PROCEDURE REPORT Name: JOHANA COYLE Room #: 423-1 ADM IN M.R.#: [id number] Admission: 05/27/17 Attend Phys: Tomy Morales MD Discharge: Date of : 68 Report #: [id number] 3. End-stage renal disease, on hemodialysis. PLAN: Described in length as above. <ELECTRONICALLY SIGNED> By: Ryan Yen MD 06/22/17 1132 1220 1626 Ryan Yen MD /nt
--- NOTE | ~2017-05-27 | HC ---
[facility] [place] [address] CONSULTATION Name: JOHANA COYLE Room #: 423-1 ADM IN M.R.#: [id number] Admission: 05/27/17 Attend Phys: Tomy Morales MD Discharge: Date of : 68 Report #: [id number] THIS REPORT FOR: //name// CC: FAM unknown Tomy Morales ENDOCRINE CONSULTATION LOCATION: Room 423. PATIENT OF: Dr. Tomy Morales SUBJECTIVE: One of multiple admissions for this 47-year-old white male with a variety of medical problems including diabetes mellitus and chronic renal failure. The patient was admitted for generalized weakness, foot ulcers, etc. He has a history of 22 years of "brittle" type 1 diabetes, most recently controlled by his own management using sliding scale lispro prior to meals and b.i.d., Levemir on an unknown dosage schedule. The patient is not on any specific dietary intake. He eats multiple meals during the day and snacks occasionally particularly at night in an effort to avoid hypoglycemia. He can provide limited glucose monitoring data from home. His activity is minimal. He does not remember any prior hemoglobin A1c's and has not seen a physician in the past several years regarding his diabetes or insulin regimen. Otherwise, he is unable to provide any pertinent endocrine history except as previously mentioned in this chart. He has had chronic renal failure for "several years," but is unable to provide any further details. The patient is currently in poor control on sliding scale lispro and Levemir. Other medications include oxycodone, zolpidem, multivitamins, gabapentin, levothyroxine, cholecalciferol, metoclopramide, sertraline, ampicillin, Sevelamer, loperamide, simethicone, erythropoietin and possibly other medications. OBJECTIVE: LABORATORY DATA: No hemoglobin A1c information is available. Sodium 143, potassium 4.6, chloride 106, CO2 27, BUN 57, creatinine 5.9, random glucoses have been consistently in the 500 range recently. Bilirubin 0.3, calcium 8.9, phosphorus 2.9, alkaline phosphatase is 242, SGOT 33, SGPT 44, total protein 5.9, albumin 1.7. PHYSICAL EXAMINATION: GENERAL: Frail 47-year-old white male in no acute distress. VITAL SIGNS: The patient is afebrile, heart rate 80 and regular, blood pressure 100/60. There are bandages and protective coverings over both heel wounds, which are not examined. Other body wounds are also not examined. NEUROLOGIC: The patient is alert, but unable [place] [address] CONSULTATION Name: JOHANA COYLE Room #: 423-1 ADM IN M.R.#: [id number] Admission: 05/27/17 Attend Phys: Tomy Morales MD Discharge: Date of : 68 Report #: [id number] The remainder of the routine physical examination is essentially as previously dictated. ASSESSMENT: 1. Brittle type 1 diabetes and poor control. 2. Complications of diabetes including chronic renal failure on dialysis. PLAN: Will attempt to evaluate prior control with hemoglobin A1c and fructosamine. Will then attempt to utilize lispro prandially and bedtime Glargine in an effort to improve glucose control. Thank you very much for this consultation. I will continue to follow the patient with you in an effort to improve glucose control. <ELECTRONICALLY SIGNED> By: Bj Robles MD 07/15/17 1259 1426 0328 Bj Robles MD /nt
--- NOTE | ~2017-05-27 | EKG ---
[address] [address] ELECTROCARDIOGRAM REPORT Name: JOHANA COYLE Room #: 237-P ADM IN M.R.#: [id number] Admission: 05/27/17 Attend Phys: Tomy Morales MD Discharge: Date of : 68 Report #: [id number] THIS REPORT FOR: //name// [facility] Test Date: 2017-06-06 Test Time: 09:02:50 Pat Name: JOHANA COYLE Department: Room: [facility] Gender: M Kettleman: MARY : 1970 Requested By: Chase Barroso Order Number: [id number] MD: Norman Boateng Measurements Intervals [place] Rate: 74 P: 48 NC: 193 QRS: 63 QRSD: 106 T: 30 QT: 434 QTc: 482 Interpretive Statements Sinus rhythm Low voltage, precordial leads Borderline prolonged QT interval Compared to ECG 05/27/2017 18:46:19 Low QRS voltage now present Myocardial infarct finding no longer present Electronically Signed On 06-06-2017 21:09:56 CASING TIER by Norman Boateng [email or web address] <ELECTRONICALLY SIGNED> By: Norman Boateng MD 06/06/17 2109 1 09 Norman Boateng MD /EPI
--- NOTE | ~2017-05-27 | HC ---
[facility] [address] CONSULTATION Name: JOHANA COYLE Room #: 423-1 ADM IN M.R.#: [id number] Admission: 05/27/17 Attend Phys: Tomy Morales MD Discharge: Date of : 68 Report #: [id number] THIS REPORT FOR: //name// CC: FAM unknown Tomy Morales DATE OF SERVICE: 05/28/2017 NEPHROLOGY CONSULTATION ATTENDING PHYSICIAN: Tomy Morales M.D. REASON FOR CONSULTATION: End-stage renal disease. HISTORY OF PRESENT ILLNESS: The patient is extremely well known to our service over the last 2 years. We have taken care of him on multiple numerous occasions with his end-stage renal disease and severe chronic debility, requiring dialysis. He has been extremely weak and debilitated. He has had multiple wounds, with very little in the way of productive healing despite very intensive measures. He has been taken care of in the LTAC room, rehab facilities and in the acute care facilities, all leading to at this time absolutely no meaningful improvement. He did try to get him home where he was able to basically stay for 1 day, but they were able to get him to outpatient dialysis, but he still is unable to walk or take care of himself. The family is unprepared to care for him at home and he essentially requires total care. He is a very brittle diabetic as well. Dialyzes with a tunneled catheter. PAST MEDICAL HISTORY: Extremely extensive severe diabetes with triopathy and ravages thereof, recurrent C. diff and multiple wounds, currently including heel wounds and a sacral wound as well as toe wounds, all of which are not healed despite extensive efforts over the course of, as we said, several years. He has had previous apparent bariatric surgery. 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 He has had a penectomy with gangrene. He has had gastrostomy tube, but that apparently is out at this point. HOME MEDICATIONS: Reportedly include Neurontin 100 mg daily; insulin sevelamer 2400 mg with meals; Aranesp 40 mcg weekly; metoclopramide, I believe, 5 mg before meals; ascorbic acid 500 mg daily; propranolol 40 mg b.i.d.; clonidine transdermal patch weekly; levothyroxine 0.125 mg daily; Zoloft 100 mg daily; Dilaudid and Creon 3 capsules with meals. SOCIAL HISTORY: He is . He has not really been living at home for quite some time, although I have seen this patient hundreds of times in hospitals, LTACs, etc. Today is the first day, his has actually been at the bedside when I have been there. [address] [address] CONSULTATION Name: JOHANA COYLE Room #: 423-1 ADM IN M.R.#: [id number] Admission: 05/27/17 Attend Phys: Tomy Morales MD Discharge: Date of : 68 Report #: [id number] REVIEW OF SYSTEMS: Difficult to take. GENERAL: He is very lethargic, apparently has been eating okay. EYES: His vision is somewhat poor. ENT: Apparently can swallow. No mouth ulcers. ENDOCRINE: Positive for diabetes and thyroid disease. RESPIRATORY: He is not short winded. CARDIAC: There is no chest pain or palpitations. GASTROINTESTINAL: Eating some. He has got the colostomy. GENITOURINARY: Does not make any more urine. NEUROLOGIC: Very extremely diffusely weak and lethargic. PHYSICAL EXAMINATION: GENERAL: This is a debilitated weak gentleman. He is arousable. SKIN: He has got the multiple wounds, particularly the sacrum, which is rather severe; the right heel, which is also fairly deep. There is a small wound in the left lateral extremity. There is a small wound on the lateral right hip and extensive wound on the right first metatarsal. HEENT: Extraocular movements are full. No scleral icterus. Mucous membranes moist. NECK: Supple. CHEST: Clear to auscultation. HEART: Regular. ABDOMEN: Soft. Colostomy in the right upper quadrant, draining stool. NEUROLOGIC: He is able to move all extremities, but rather weak. LABORATORY DATA: Hemoglobin is 8.8. Sodium 139, potassium 4.1, chloride 106, bicarbonate 28 and creatinine 3.2. ASSESSMENT AND PLAN: 1. End-stage renal disease. We will continue with appropriate dialysis 3 times weekly. 2. Severe chronic debility. There is no hope for meaningful recovery. We have been at this for 2 years. He is no better than he was when we started. He will either need total care in a chronic facility, likely have to be some sort of octavio situation or palliative care and withdrawal of dialysis would be a more reasonable option at this point, as there does not seem to be any hope for any sort of meaningful recovery in this unfortunate case. 3. Diabetes mellitus with triopathy. 4. Multiple wounds as outlined. 5. Severe peripheral vascular disease. 6. Chronic noncompliance. As we have taken care of him over the course of time, he has been noted to be receiving multiple foods which are not on his [facility] [place] [place] [address] [place] [address] CONSULTATION Name: JOHANA COYLE Room #: 423-1 ADM IN M.R.#: [id number] Admission: 05/27/17 Attend Phys: Tomy Morales MD Discharge: Date of : 68 Report #: [id number] renal diet, salty foods. He eats lots of sweets and candy when he can. Blood sugar control, therefore, much more difficult than otherwise needs to be. <ELECTRONICALLY SIGNED> By: Chase Barroso MD 06/09/17 1042 [id number] 2215 Chase Barroso MD /nt
--- NOTE | ~2017-05-27 | HC ---
[facility] [address] [place] [address] CONSULTATION Name: JOHANA COYLE Room #: 423-1 ADM IN M.R.#: [id number] Admission: 05/27/17 Attend Phys: Tomy Morales MD Discharge: Date of : 68 Report #: [id number] THIS REPORT FOR: //name// CC: FAM unknown Tomy Morales DATE OF SERVICE: 07/14/2017 HISTORY OF PRESENT ILLNESS: The patient is a 47-year-old white male who has been seen previously by me during one of his multiple hospitalizations. He relates his issues back to a laparoscopic gastric bypass a couple of years ago. He has brittle insulin-dependent diabetes mellitus. He has had major complications with multiple hospitalizations. He had not been home greater than 1-1/2 years with [facility] and then was admitted here as he was just too much care. He was noted to have recurrent nonhealing stage IV sacral pressure ulcer with osteomyelitis and right heel ulcer and he underwent excisional debridement of the pressure ulcer of the sacrum on 06/12/2017. He has had problems with sepsis, which has resolved. He has a diverting colostomy for the coccygeal wound, chronic pain is an issue. We are seeing him in rehabilitation medicine consultation. PAST MEDICAL HISTORY: As noted above. He has diabetes mellitus and has severe diabetic peripheral neuropathy. He has had a laparoscopic gastric bypass, peripheral vascular disease, end-stage renal disease, fingertip necrosis, status post partial amputations. He had a penectomy, status post gangrene, right hip fracture with IM nailing in 2016. He has had prior diabetic ketoacidosis. He has had a PEG tube. MEDICATIONS: Please see the full medication listing. ALLERGIES: GLUTEN AND MILK. SOCIAL HISTORY: He has been living in a house with his , although has not lived there in over a year and a half except for the one day as noted above. There are 4 steps in, but apparently, there is a ramp. He notes that his is looking for work currently and that there would not be anyone with him during the day when she has gone. He is uncertain regarding his eventual long-term discharge plan. REVIEW OF SYSTEMS: He has some chronic pain complaints, concerns with his colostomy as it will "blow up" during dialysis. He notes his sacral area is discomforting obviously. PHYSICAL EXAMINATION: [facility] [address] [place] [address] CONSULTATION Name: JOHANA COYLE Room #: 423-1 [facility] IN ..#: [id number] Admission: 05/27/17 Attend Phys: Tomy Morales MD Discharge: Date of : 68 Report #: [id number] GENERAL: A thin 47-year-old white male, chronically ill, in no obvious acute distress. VITAL SIGNS: Temperature is 97.7, pulse 80, respirations 16, blood pressure 93/54. He appears to have some ptosis. HEENT: Facies otherwise are symmetric. EXTREMITIES: His coccygeal area is dressed and we needed to assist him with mid to mod assist as far as rolling on to the left side. His right heel area also is dressed and packed. He has considerable atrophy of both upper extremities distally more than proximally with intrinsic atrophy and has had amputations of the right fifth partial digit and left third and fourth partial digits. 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 In his lower extremities, he has distal weakness and atrophy. Strength is probably a grade 3+ proximally and 3-3+ distally. Decreased sensation distally. He has however been able to achieve min assist with sit to stand. Gait was 55 feet min assist with a front-wheeled walker. He does have the ostomy in place. ASSESSMENT: A 47-year-old white male with the following problem list: 1. Severe diabetic peripheral neuropathy. 2. Stage 4 sacral pressure ulcer with osteomyelitis, status post excisional debridement, 06/12/2017. 3. Sepsis, which has resolved. 4. Right heel pressure ulcer. 5. End-stage renal disease, on hemodialysis. 6. Status post diverting colostomy for coccygeal wound. 7. 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 8. 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 9. Chronic pain syndrome. 10. Prior right hip fracture with nailing. 11. Prior laparoscopic gastric bypass surgery. PLAN: Complex case with multiple social and placement issues. Agree with the current direction as per case management. We would recommend [facility] facility or long-term acute care options as are being considered. <ELECTRONICALLY SIGNED> By: Bj Khalil MD 07/18/17 1109 1436 0110 Bj Khalil MD /[facility]
[~2017-05-27 18:20] MED LIST changes: +ACIDOPHILUS1 EAC3 PO; +ANCEF 1GM1 GM/50 M1 IV; -ARANESP40 MCG/1 M IJ; +ARANESP40 MCG/1 M INJECTION; +BENEPROTEIN1 EACH PO; +CEPHALEXIN 500500 M3 PO; +DOXYCYCLINE 10100 MG PO; +FLORASTOR250 MG PO; +HUMALOG100 UNIT/1 SUBQ; +IRON325 PO; +MS CONTIN 30 MG30 M1 PO; +ONDANSETRON HCL4 M2 PO; +PROPRANOLOL 1010 MG PO; +TYLENOL325 MG PO; +VITAMIN D1000 UNI1 PO; +VITAMINC500 PO
[2017-05-27 18:22] VITALS: BP 168/93
[2017-05-27 19:57] LABS: ABSOLUTE NEUTROPHILS 4.2 thou/uL (1.4-8.2); BASOPHILS 1.3 % (0.0-2.0); HEMATOCRIT 27.9 % (42.0-52.0); HEMOGLOBIN 8.8 gm/dL (14.0-18.0); LYMPHOCYTES 15.9 % (24.0-44.0); MCH 31.9 pg (26.0-34.0); MCHC 31.6 g/dL (28.0-37.0); MONOCYTES 9.5 % (1.0-8.0); PLATELET COUNT 231 thou/uL (150-400); POLYS 72.3 % (36.0-66.0); RBC 2.76 mil/uL (4.50-6.00); RDW 15.8 % (10.5-14.5); WBC 5.8 thou/uL (4.0-11.0)
[2017-05-27 20:11] LABS: ANION GAP 5 mmol/L (7-16); BUN 19 mg/dL (7-18); CALCIUM 8.8 mg/dL (8.5-10.1); CHLORIDE 106 mmol/L (98-107); CO2 28 mmol/L (21-32); CREATININE 3.2 mg/dL (0.7-1.3); GLUCOSE 91 mg/dL (74-106); POTASSIUM 4.1 mmol/L (3.5-5.1); SODIUM 139 mmol/L (136-145)
[2017-05-27 20:19] LABS: ALBUMIN 1.9 g/dL (3.4-5.0); SGOT 21 U/L (15-37); SGPT 8 U/L (30-65); TOTAL BILIRUBIN 0.3 mg/dL (<0.1-1.0); TOTAL PROTEIN 6.3 g/dL (6.4-8.2); TROPONIN-I < 0.04 ng/mL (<0.06)
[2017-05-27 21:00] VITALS: BP 139/78
[2017-05-27 21:48] VITALS: BP 111/61
[2017-05-27] MEDS ORDERED: DILAUDID 2 MG TA2 MG PO (22:52)
[2017-05-27] MEDS ORDERED: ENOXAPARIN30 MG/0.1 SUBQ (22:54)
[2017-05-27] MEDS ORDERED: GABAPENTIN 100100 MG PO (22:55)
[2017-05-27] MEDS ORDERED: MIRALAX17 G1 PO (22:57)
[2017-05-27] MEDS ORDERED: HUMALOG100 UNIT/1 SUBQ (22:59)
[2017-05-27] MEDS ORDERED: HYDRALAZINE 2525 MG PO ×2 (23:03→23:04)
[2017-05-27] MEDS ORDERED: LANTUS SUBQ (23:06)
[2017-05-27] MEDS ORDERED: LEVOTHYROXINE100 MC1 PO (23:07)
[2017-05-27] MEDS ORDERED: LISINOPRIL20 MG PO (23:08)
[2017-05-27] MEDS ORDERED: MS CONTIN15 MG PO (23:09)
[2017-05-27] MEDS ORDERED: REGLAN 5 MG TAB5 MG PO (23:11)
[2017-05-27] MEDS ORDERED: RENVELA800 MG PO (23:11)
[2017-05-27] MEDS ORDERED: VITAMINC500 PO (23:12)
[2017-05-27] MEDS ORDERED: VITAMIN D3400 UNIT PO (23:13)
[2017-05-27] MEDS ORDERED: ZOLOFT50 MG PO (23:14)
[2017-05-27] MEDS ORDERED: ZINC SULFATE 2220 MG PO (23:14)
[2017-05-27] MEDS ORDERED: ZYPREXA15 MG PO (23:15)
[2017-05-28 03:58] VITALS: BP 126/67
[2017-05-28 09:46] VITALS: BP 126/59
[2017-05-28 16:24] VITALS: BP 165/85
[2017-05-28 19:56] VITALS: BP 113/62
[2017-05-28 22:20] VITALS: BP 137/75
[2017-05-28 23:50] VITALS: BP 130/73
[2017-05-29 03:41] VITALS: BP 174/91
[2017-05-29 05:06] LABS: HEMATOCRIT 30.5 % (42.0-52.0); HEMOGLOBIN 9.5 gm/dL (14.0-18.0); MCH 32.1 pg (26.0-34.0); MCHC 31.3 g/dL (28.0-37.0); MCV 102.4 fL (80.0-100.0); RBC 2.98 mil/uL (4.50-6.00); RDW 16.2 % (10.5-14.5); WBC 5.8 thou/uL (4.0-11.0)
[2017-05-29 05:09] LABS: CALCIUM 9.2 mg/dL (8.5-10.1); MAGNESIUM 2.4 mg/dL (1.8-2.4); POTASSIUM 4.7 mmol/L (3.5-5.1)
[2017-05-29 05:14] LABS: CREATININE 5.4 mg/dL (0.7-1.3)
[2017-05-29 08:00] VITALS: BP 169/80
[2017-05-29 16:00] VITALS: BP 154/73
[2017-05-30 06:38] VITALS: BP 154/73
[2017-05-30 09:06] VITALS: BP 153/91
[2017-05-30 12:00] VITALS: BP 144/76
[2017-05-30 15:55] VITALS: BP 122/69
[2017-05-30 19:10] VITALS: BP 106/61
[2017-05-31 03:16] VITALS: BP 143/79
[2017-05-31 06:38] LABS: HEMATOCRIT 25.2 % (42.0-52.0); HEMOGLOBIN 8.1 gm/dL (14.0-18.0); MCH 32.6 pg (26.0-34.0); MCHC 32.1 g/dL (28.0-37.0); MCV 101.7 fL (80.0-100.0); RBC 2.48 mil/uL (4.50-6.00); RDW 15.3 % (10.5-14.5); WBC 5.9 thou/uL (4.0-11.0)
[2017-05-31 06:54] LABS: CALCIUM 8.1 mg/dL (8.5-10.1); POTASSIUM 4.3 mmol/L (3.5-5.1)
[2017-05-31 08:01] VITALS: BP 142/77
[2017-05-31 16:46] VITALS: BP 147/73
[2017-05-31 19:56] VITALS: BP 105/56
[2017-06-01 03:55] VITALS: BP 121/58
[2017-06-01 05:26] VITALS: BP 120/68
[2017-06-01 06:33] LABS: HEMATOCRIT 26.4 % (42.0-52.0); HEMOGLOBIN 8.4 gm/dL (14.0-18.0); MCH 32.5 pg (26.0-34.0); MCHC 31.8 g/dL (28.0-37.0); MCV 102.2 fL (80.0-100.0); RBC 2.58 mil/uL (4.50-6.00); RDW 15.4 % (10.5-14.5); WBC 5.3 thou/uL (4.0-11.0)
[2017-06-01 06:52] LABS: POTASSIUM 5.3 mmol/L (3.5-5.1)
[2017-06-01 06:55] LABS: CREATININE 6.7 mg/dL (0.7-1.3)
[2017-06-01 08:00] VITALS: BP 121/63
[2017-06-01 16:00] VITALS: BP 112/57
[2017-06-01 20:09] VITALS: BP 117/70
[2017-06-02 04:42] VITALS: BP 105/65
[2017-06-02 08:00] VITALS: BP 159/73
[2017-06-02 16:00] VITALS: BP 113/56
[2017-06-02 19:20] VITALS: BP 136/70
[2017-06-03 07:15] VITALS: BP 110/63
[2017-06-03 17:00] VITALS: BP 143/77
[2017-06-03 21:00] VITALS: BP 125/70
[2017-06-04 02:05] LABS: HEP B SURFACE Ab(ANTI-HBS Reactive (()); HEPATITIS B SURFACE AG Negative (Negative)
[2017-06-04 05:15] VITALS: BP 137/69
[2017-06-04 08:00] VITALS: BP 114/60
[2017-06-04 16:52] VITALS: BP 128/68
[2017-06-04 19:26] VITALS: BP 112/65
[2017-06-05 04:04] VITALS: BP 88/37
[2017-06-05 10:00] VITALS: BP 85/46
[2017-06-05 12:00] VITALS: BP 97/54
[2017-06-05 16:00] VITALS: BP 109/57
[2017-06-05 19:58] VITALS: BP 101/54
[2017-06-06] VITALS (32 sets, daily range): BP systolic 92–150; BP diastolic 43–129
[2017-06-06 04:08] LABS: ALBUMIN 1.7 g/dL (3.4-5.0); CALCIUM 8.6 mg/dL (8.5-10.1); CREATININE 7.3 mg/dL (0.7-1.3); PHOSPHORUS 5.1 mg/dL (2.5-4.9); POTASSIUM 5.3 mmol/L (3.5-5.1)
[2017-06-06 04:23] LABS: HEMOGLOBIN 7.8 gm/dL (14.0-18.0); MCHC 32.4 g/dL (28.0-37.0); RBC 2.35 mil/uL (4.50-6.00); RDW 15.3 % (10.5-14.5); WBC 6.5 thou/uL (4.0-11.0)
[2017-06-06 12:06] LABS: HEMOGLOBIN 7.4 gm/dL (14.0-18.0); MCHC 32.2 g/dL (28.0-37.0); MCV 102.4 fL (80.0-100.0); PLATELET COUNT 229 thou/uL (150-400); RBC 2.25 mil/uL (4.50-6.00); RDW 15.6 % (10.5-14.5); WBC 9.3 thou/uL (4.0-11.0)
[2017-06-06 12:16] LABS: POTASSIUM 4.8 mmol/L (3.5-5.1)
[2017-06-06 12:48] LABS: ABSOLUTE NEUTROPHILS 7.8 thou/uL (1.4-8.2); PLATELET ESTIMATE NORMAL
[2017-06-06 13:54] LABS: ALBUMIN 1.7 g/dL (3.4-5.0); DIRECT BILIRUBIN 0.2 mg/dL (<0.1-0.3); TOTAL BILIRUBIN 0.3 mg/dL (<0.1-1.0); TOTAL PROTEIN 5.3 g/dL (6.4-8.2)
[2017-06-07] VITALS (15 sets, daily range): BP systolic 110–157; BP diastolic 48–84
[2017-06-07 06:18] LABS: BASOPHILS 0.6 % (0.0-2.0); HEMOGLOBIN 7.8 gm/dL (14.0-18.0); LYMPHOCYTES 19.5 % (24.0-44.0); MCH 33.1 pg (26.0-34.0); MCHC 32.6 g/dL (28.0-37.0); MCV 101.7 fL (80.0-100.0); MONOCYTES 7.8 % (1.0-8.0); PLATELET COUNT 234 thou/uL (150-400); POLYS 71.1 % (36.0-66.0); RBC 2.36 mil/uL (4.50-6.00); RDW 15.7 % (10.5-14.5); WBC 5.6 thou/uL (4.0-11.0)
[2017-06-07 06:35] LABS: ALBUMIN 1.8 g/dL (3.4-5.0); CALCIUM 8.3 mg/dL (8.5-10.1); CREATININE 6.6 mg/dL (0.7-1.3); PHOSPHORUS 5.1 mg/dL (2.5-4.9); POTASSIUM 4.8 mmol/L (3.5-5.1); TOTAL BILIRUBIN 0.4 mg/dL (<0.1-1.0); TOTAL PROTEIN 6.1 g/dL (6.4-8.2)
[2017-06-08 03:12] VITALS: BP 117/60
[2017-06-08 07:46] VITALS: BP 148/74
[2017-06-08 15:26] VITALS: BP 152/76
[2017-06-08 19:35] VITALS: BP 131/68
[2017-06-09 03:49] VITALS: BP 169/80
[2017-06-09 07:32] VITALS: BP 150/81
[2017-06-09 14:32] VITALS: BP 153/79
[2017-06-09 15:23] VITALS: BP 158/81
[2017-06-09 19:13] VITALS: BP 152/75
[2017-06-10 04:00] VITALS: BP 184/89
[2017-06-10 05:18] LABS: ALBUMIN 1.4 g/dL (3.4-5.0); CALCIUM 8.2 mg/dL (8.5-10.1); PHOSPHORUS 4.7 mg/dL (2.5-4.9); POTASSIUM 4.5 mmol/L (3.5-5.1)
[2017-06-10 07:22] LABS: HEMATOCRIT 24.6 % (42.0-52.0); MCH 32.7 pg (26.0-34.0); MCHC 32.6 g/dL (28.0-37.0); MCV 100.4 fL (80.0-100.0); RBC 2.45 mil/uL (4.50-6.00); RDW 15.5 % (10.5-14.5); WBC 4.4 thou/uL (4.0-11.0)
[2017-06-10 08:00] VITALS: BP 152/96
[2017-06-10 16:00] VITALS: BP 140/81
[2017-06-10 19:51] VITALS: BP 164/80
[2017-06-11 03:47] VITALS: BP 192/85
[2017-06-11 08:00] VITALS: BP 166/74
[2017-06-11 16:00] VITALS: BP 158/83
[2017-06-11 20:00] VITALS: BP 151/45
[2017-06-12] VITALS (9 sets, daily range): BP systolic 99–160; BP diastolic 47–77
[2017-06-12 06:24] LABS: HEMATOCRIT 24.8 % (42.0-52.0); HEMOGLOBIN 8.1 gm/dL (14.0-18.0); MCH 32.8 pg (26.0-34.0); MCHC 32.5 g/dL (28.0-37.0); MCV 100.8 fL (80.0-100.0); RBC 2.46 mil/uL (4.50-6.00); RDW 15.6 % (10.5-14.5); WBC 5.2 thou/uL (4.0-11.0)
[2017-06-12 06:32] LABS: ALBUMIN 1.5 g/dL (3.4-5.0); CALCIUM 8.2 mg/dL (8.5-10.1); CREATININE 5.7 mg/dL (0.7-1.3); PHOSPHORUS 4.5 mg/dL (2.5-4.9); POTASSIUM 4.9 mmol/L (3.5-5.1)
[2017-06-13 00:24] VITALS: BP 134/68
[2017-06-13 03:53] VITALS: BP 179/76
[2017-06-13 08:00] VITALS: BP 143/65
[2017-06-13 16:00] VITALS: BP 193/110
[2017-06-13 20:00] VITALS: BP 164/73
[2017-06-14 04:04] VITALS: BP 169/102
[2017-06-14 08:45] VITALS: BP 179/85
[2017-06-14 15:45] VITALS: BP 184/83
[2017-06-14 20:08] VITALS: BP 182/72
[2017-06-15 03:46] VITALS: BP 167/76
[2017-06-15 07:26] LABS: HEMATOCRIT 23.8 % (42.0-52.0); HEMOGLOBIN 7.7 gm/dL (14.0-18.0); MCH 32.4 pg (26.0-34.0); MCHC 32.5 g/dL (28.0-37.0); MCV 99.8 fL (80.0-100.0); RBC 2.38 mil/uL (4.50-6.00); RDW 15.6 % (10.5-14.5); WBC 5.6 thou/uL (4.0-11.0)
[2017-06-15 07:44] LABS: CREATININE 5.4 mg/dL (0.7-1.3); POTASSIUM 4.3 mmol/L (3.5-5.1)
[2017-06-15 17:30] VITALS: BP 135/79
[2017-06-15 20:03] VITALS: BP 174/93
[2017-06-16 05:00] VITALS: BP 184/76
[2017-06-16 08:05] VITALS: BP 177/76
[2017-06-16 15:45] VITALS: BP 195/82
[2017-06-16 19:45] VITALS: BP 135/81
[2017-06-17 03:46] VITALS: BP 181/77
[2017-06-17 16:00] VITALS: BP 190/79
[2017-06-17 20:30] VITALS: BP 162/88
[2017-06-18 04:30] VITALS: BP 152/54
[2017-06-18 07:55] VITALS: BP 131/72
[2017-06-18 16:15] VITALS: BP 191/83
[2017-06-18 21:00] VITALS: BP 136/92
[2017-06-19 04:39] VITALS: BP 139/69
[2017-06-19 06:06] LABS: ABSOLUTE NEUTROPHILS 3.6 thou/uL (1.4-8.2); BASOPHILS 0.9 % (0.0-2.0); EOSINOPHILS 2.7 % (0.0-3.0); HEMATOCRIT 29.2 % (42.0-52.0); HEMOGLOBIN 9.2 gm/dL (14.0-18.0); LYMPHOCYTES 22.4 % (24.0-44.0); MCH 32.4 pg (26.0-34.0); MCHC 31.5 g/dL (28.0-37.0); MONOCYTES 7.6 % (1.0-8.0); PLATELET COUNT 205 thou/uL (150-400); POLYS 66.4 % (36.0-66.0); RBC 2.84 mil/uL (4.50-6.00); RDW 15.4 % (10.5-14.5); WBC 5.5 thou/uL (4.0-11.0)
[2017-06-19 06:21] LABS: ALBUMIN 1.7 g/dL (3.4-5.0); CALCIUM 8.5 mg/dL (8.5-10.1); CREATININE 5.6 mg/dL (0.7-1.3); POTASSIUM 4.4 mmol/L (3.5-5.1); TOTAL BILIRUBIN 0.3 mg/dL (<0.1-1.0); TOTAL PROTEIN 5.8 g/dL (6.4-8.2)
[2017-06-19 08:57] VITALS: BP 182/76
[2017-06-19 15:32] VITALS: BP 147/72
[2017-06-19 20:00] VITALS: BP 156/69
[2017-06-20 05:41] VITALS: BP 143/81
[2017-06-20 08:15] VITALS: BP 166/88
[2017-06-20 17:59] VITALS: BP 110/73
[2017-06-20 19:43] VITALS: BP 131/83
[2017-06-21 02:41] VITALS: BP 138/76
[2017-06-21 07:10] VITALS: BP 146/76
[2017-06-21 15:00] VITALS: BP 149/88
[2017-06-21 19:52] VITALS: BP 116/83
[2017-06-22 04:41] VITALS: BP 166/87
[2017-06-22 06:35] LABS: ALBUMIN 1.7 g/dL (3.4-5.0); CALCIUM 8.1 mg/dL (8.5-10.1); CREATININE 5.5 mg/dL (0.7-1.3); PHOSPHORUS 5.5 mg/dL (2.5-4.9); POTASSIUM 4.6 mmol/L (3.5-5.1)
[2017-06-22 08:13] VITALS: BP 134/81
[2017-06-22 16:54] VITALS: BP 147/78
[2017-06-22 19:56] VITALS: BP 203/96
[2017-06-23 05:20] VITALS: BP 165/82
[2017-06-23 08:00] VITALS: BP 180/79
[2017-06-23 15:30] VITALS: BP 136/82
[2017-06-23 20:01] VITALS: BP 119/66
[2017-06-24 04:29] VITALS: BP 159/96
[2017-06-24 15:47] VITALS: BP 144/94
[2017-06-24 17:13] LABS: HEMATOCRIT 27.5 % (42.0-52.0); HEMOGLOBIN 8.9 gm/dL (14.0-18.0); MCH 32.6 pg (26.0-34.0); MCHC 32.2 g/dL (28.0-37.0); MCV 101.3 fL (80.0-100.0); RBC 2.71 mil/uL (4.50-6.00); WBC 5.2 thou/uL (4.0-11.0)
[2017-06-24 17:23] LABS: CALCIUM 8.4 mg/dL (8.5-10.1)
[2017-06-24 17:25] LABS: CREATININE 3.1 mg/dL (0.7-1.3)
[2017-06-24 19:50] VITALS: BP 122/72
[2017-06-25 04:20] VITALS: BP 167/93
[2017-06-25 08:35] VITALS: BP 153/75
[2017-06-25 16:02] VITALS: BP 149/83
[2017-06-25 19:43] VITALS: BP 156/87
[2017-06-26 06:33] VITALS: BP 147/76
[2017-06-26 08:05] VITALS: BP 103/67
[2017-06-26 14:25] VITALS: BP 138/88
[2017-06-26 19:46] VITALS: BP 150/81
[2017-06-27 04:44] VITALS: BP 143/67
[2017-06-27 06:48] LABS: ABSOLUTE NEUTROPHILS 4.6 thou/uL (1.4-8.2); BASOPHILS 0.6 % (0.0-2.0); EOSINOPHILS 3.3 % (0.0-3.0); HEMATOCRIT 31.2 % (42.0-52.0); HEMOGLOBIN 10.2 gm/dL (14.0-18.0); LYMPHOCYTES 33.9 % (24.0-44.0); MCH 33.1 pg (26.0-34.0); MCHC 32.5 g/dL (28.0-37.0); MCV 101.9 fL (80.0-100.0); MONOCYTES 6.2 % (1.0-8.0); RBC 3.06 mil/uL (4.50-6.00); RDW 15.5 % (10.5-14.5); WBC 8.3 thou/uL (4.0-11.0)
[2017-06-27 06:56] LABS: PLATELET COUNT 316 thou/uL (150-400)
[2017-06-27 07:06] LABS: ALBUMIN 1.9 g/dL (3.4-5.0); CALCIUM 9.2 mg/dL (8.5-10.1); CREATININE 6.6 mg/dL (0.7-1.3); POTASSIUM 4.8 mmol/L (3.5-5.1); TOTAL BILIRUBIN 0.4 mg/dL (<0.1-1.0); TOTAL PROTEIN 6.5 g/dL (6.4-8.2)
[2017-06-27 09:39] VITALS: BP 128/76
[2017-06-27 16:00] VITALS: BP 183/79
[2017-06-27 22:20] VITALS: BP 138/88
[2017-06-28 06:19] LABS: ABSOLUTE NEUTROPHILS 2.8 thou/uL (1.4-8.2); BASOPHILS 1.2 % (0.0-2.0); EOSINOPHILS 3.8 % (0.0-3.0); HEMATOCRIT 25.5 % (42.0-52.0); HEMOGLOBIN 8.3 gm/dL (14.0-18.0); LYMPHOCYTES 28.8 % (24.0-44.0); MCH 33.2 pg (26.0-34.0); MCHC 32.6 g/dL (28.0-37.0); MCV 101.7 fL (80.0-100.0); POLYS 57.2 % (36.0-66.0); RBC 2.51 mil/uL (4.50-6.00); RDW 15.5 % (10.5-14.5); WBC 4.9 thou/uL (4.0-11.0)
[2017-06-28 06:20] LABS: PLATELET COUNT 211 thou/uL (150-400)
[2017-06-28 06:35] LABS: ALBUMIN 1.6 g/dL (3.4-5.0); CALCIUM 8.2 mg/dL (8.5-10.1); POTASSIUM 4.3 mmol/L (3.5-5.1); TOTAL BILIRUBIN 0.3 mg/dL (<0.1-1.0); TOTAL PROTEIN 5.9 g/dL (6.4-8.2)
[2017-06-28 07:46] VITALS: BP 152/86
[2017-06-28 20:30] VITALS: BP 115/79
[2017-06-29 05:30] VITALS: BP 125/78
[2017-06-29 08:28] VITALS: BP 142/80
[2017-06-29 15:37] VITALS: BP 104/67
[2017-06-29 20:41] VITALS: BP 88/78
[2017-06-30 08:10] VITALS: BP 126/78
[2017-06-30 14:20] VITALS: BP 91/53
[2017-06-30 20:00] VITALS: BP 122/75
[2017-07-01 05:59] VITALS: BP 157/93
[2017-07-01 07:34] VITALS: BP 149/86
[2017-07-01 15:00] VITALS: BP 111/65
[2017-07-01 20:00] VITALS: BP 132/58
[2017-07-02 03:31] LABS: ALBUMIN 1.7 g/dL (3.4-5.0); CALCIUM 8.5 mg/dL (8.5-10.1); CREATININE 3.8 mg/dL (0.7-1.3); PHOSPHORUS 2.9 mg/dL (2.5-4.9); POTASSIUM 4.3 mmol/L (3.5-5.1)
[2017-07-02 04:32] VITALS: BP 125/87
[2017-07-02 08:00] VITALS: BP 112/63
[2017-07-02 16:00] VITALS: BP 147/89
[2017-07-02 21:00] VITALS: BP 104/69
[2017-07-03 04:30] VITALS: BP 142/77
[2017-07-03 08:35] VITALS: BP 139/81
[2017-07-03 19:55] VITALS: BP 137/74
[2017-07-04 03:51] VITALS: BP 112/89
[2017-07-04 08:40] VITALS: BP 121/64
[2017-07-04 16:30] VITALS: BP 104/70
[2017-07-04 20:00] VITALS: BP 104/66
[2017-07-05 04:09] VITALS: BP 108/72
[2017-07-05 08:10] VITALS: BP 101/58
[2017-07-05 20:00] VITALS: BP 136/80
[2017-07-06 05:03] VITALS: BP 106/72
[2017-07-06 06:32] LABS: ABSOLUTE NEUTROPHILS 2.2 thou/uL (1.4-8.2); BASOPHILS 0.7 % (0.0-2.0); EOSINOPHILS 2.7 % (0.0-3.0); HEMATOCRIT 28.1 % (42.0-52.0); LYMPHOCYTES 37.5 % (24.0-44.0); MCHC 31.9 g/dL (28.0-37.0); MCV 103.5 fL (80.0-100.0); PLATELET COUNT 189 thou/uL (150-400); POLYS 48.1 % (36.0-66.0); RBC 2.72 mil/uL (4.50-6.00); RDW 15.8 % (10.5-14.5); WBC 4.6 thou/uL (4.0-11.0)
[2017-07-06 08:00] VITALS: BP 139/76
[2017-07-06 16:00] VITALS: BP 117/66
[2017-07-06 22:00] VITALS: BP 90/47
[2017-07-07 04:44] VITALS: BP 117/70
[2017-07-07 07:20] VITALS: BP 114/63
[2017-07-07 15:30] VITALS: BP 118/79
[2017-07-07 19:19] VITALS: BP 102/69
[2017-07-08 02:56] VITALS: BP 134/78
[2017-07-08 03:35] LABS: ABSOLUTE NEUTROPHILS 1.8 thou/uL (1.4-8.2); BASOPHILS 1.1 % (0.0-2.0); EOSINOPHILS 4.1 % (0.0-3.0); HEMATOCRIT 28.8 % (42.0-52.0); HEMOGLOBIN 9.2 gm/dL (14.0-18.0); LYMPHOCYTES 35.6 % (24.0-44.0); MCH 33.1 pg (26.0-34.0); MCHC 31.9 g/dL (28.0-37.0); MCV 103.6 fL (80.0-100.0); MONOCYTES 11.3 % (1.0-8.0); PLATELET COUNT 185 thou/uL (150-400); POLYS 47.9 % (36.0-66.0); RBC 2.78 mil/uL (4.50-6.00); RDW 15.2 % (10.5-14.5); WBC 3.8 thou/uL (4.0-11.0)
[2017-07-08 03:50] LABS: CALCIUM 8.7 mg/dL (8.5-10.1); CREATININE 5.6 mg/dL (0.7-1.3); POTASSIUM 4.8 mmol/L (3.5-5.1)
[2017-07-08 08:25] VITALS: BP 88/67
[2017-07-08 15:50] VITALS: BP 113/70
[2017-07-08 20:30] VITALS: BP 103/67
[2017-07-09 05:00] VITALS: BP 111/73
[2017-07-09 08:00] VITALS: BP 125/74
[2017-07-09 16:00] VITALS: BP 102/62
[2017-07-09 19:53] VITALS: BP 105/61
[2017-07-10 04:18] VITALS: BP 89/63
[2017-07-10 04:40] VITALS: BP 102/56
[2017-07-10 07:20] LABS: ABSOLUTE NEUTROPHILS 2.5 thou/uL (1.4-8.2); BASOPHILS 0.5 % (0.0-2.0); EOSINOPHILS 3.9 % (0.0-3.0); HEMATOCRIT 28.9 % (42.0-52.0); HEMOGLOBIN 9.2 gm/dL (14.0-18.0); LYMPHOCYTES 35.6 % (24.0-44.0); MCV 103.1 fL (80.0-100.0); MONOCYTES 7.9 % (1.0-8.0); PLATELET COUNT 175 thou/uL (150-400); POLYS 52.1 % (36.0-66.0); RDW 15.3 % (10.5-14.5); WBC 4.8 thou/uL (4.0-11.0)
[2017-07-10 07:39] LABS: CALCIUM 8.9 mg/dL (8.5-10.1); CREATININE 5.9 mg/dL (0.7-1.3); POTASSIUM 4.6 mmol/L (3.5-5.1)
[2017-07-10 07:40] VITALS: BP 118/77
[2017-07-10 15:55] VITALS: BP 107/71
[2017-07-10 19:41] VITALS: BP 93/62
[2017-07-11 08:00] VITALS: BP 120/67
[2017-07-11 16:45] VITALS: BP 113/69
[2017-07-11 19:39] VITALS: BP 89/56
[2017-07-12 07:25] VITALS: BP 113/72
[2017-07-12 21:30] VITALS: BP 113/62
[2017-07-13 04:30] VITALS: BP 117/72
[2017-07-13 08:53] VITALS: BP 137/84
[2017-07-13 20:40] VITALS: BP 99/59
[2017-07-14 05:00] VITALS: BP 120/61
[2017-07-14 07:25] VITALS: BP 93/54
[2017-07-14 15:25] VITALS: BP 129/81
[2017-07-14 21:00] VITALS: BP 127/68
[2017-07-15 04:28] VITALS: BP 135/72
[2017-07-15 07:45] VITALS: BP 123/68
[2017-07-15 20:12] VITALS: BP 121/78
[2017-07-16 04:00] VITALS: BP 116/81
[2017-07-16 08:00] VITALS: BP 147/78
[2017-07-16 16:00] VITALS: BP 164/91
[2017-07-16 20:30] VITALS: BP 144/80
[2017-07-17 04:30] VITALS: BP 147/79
[2017-07-17 04:57] VITALS: BP 147/79
[2017-07-17 07:45] VITALS: BP 145/79
[2017-07-17 14:50] VITALS: BP 93/67
[2017-07-17 20:31] VITALS: BP 125/77
[2017-07-18 06:38] LABS: ABSOLUTE NEUTROPHILS 1.7 thou/uL (1.4-8.2); BASOPHILS 0.6 % (0.0-2.0); EOSINOPHILS 3.8 % (0.0-3.0); HEMATOCRIT 30.2 % (42.0-52.0); HEMOGLOBIN 9.8 gm/dL (14.0-18.0); LYMPHOCYTES 46.6 % (24.0-44.0); MCH 33.2 pg (26.0-34.0); MCHC 32.5 g/dL (28.0-37.0); MCV 102.1 fL (80.0-100.0); MONOCYTES 8.3 % (1.0-8.0); PLATELET COUNT 145 thou/uL (150-400); POLYS 40.7 % (36.0-66.0); RBC 2.96 mil/uL (4.50-6.00); RDW 15.7 % (10.5-14.5); WBC 4.2 thou/uL (4.0-11.0)
[2017-07-18 06:57] LABS: ALBUMIN 1.7 g/dL (3.4-5.0); CALCIUM 8.9 mg/dL (8.5-10.1); CREATININE 6.1 mg/dL (0.7-1.3); POTASSIUM 4.2 mmol/L (3.5-5.1); TOTAL BILIRUBIN 0.3 mg/dL (<0.1-1.0); TOTAL PROTEIN 5.2 g/dL (6.4-8.2)
[2017-07-18 07:00] VITALS: BP 107/54
[2017-07-18 16:46] VITALS: BP 136/75
[2017-07-18 19:11] VITALS: BP 106/72
[2017-07-19 03:56] VITALS: BP 151/87
[2017-07-19 07:25] VITALS: BP 147/78
[2017-07-19 15:20] VITALS: BP 97/60
[2017-07-19 19:14] VITALS: BP 1158/70
[2017-07-20 04:03] VITALS: BP 161/74
[2017-07-20 08:10] VITALS: BP 132/83
[2017-07-20] MEDS ORDERED: UNASYN 3 GM VIAL3 G1 IV (11:09)
[2017-08-22] MEDS ORDERED: [UNRECOGNIZED DRUG - OTHER] PO (13:20)
[2017-08-22] MEDS ORDERED: NOVOLOG FL100 UNIT/M SUBQ (13:25)
== END 2017-07-20 16:35 | DRG 853 ==
LOC: ER 18:20 → 4E 20:25 → 4S 20:25 → EROBS 20:25 → 4E 20:25 → 4S 21:48 → ICU 06-06 09:26 → 4E 06-07 12:35
PROVIDERS: Hospitalist; Internal Medicine; Internal Medicine Endocrinology, Diabetes & Metabolism; Internal Medicine Infectious Disease; Internal Medicine Nephrology; Nurse Practitioner Family; Specialist
DX: A41.81 Sepsis due to Enterococcus (principal); L89.154 Pressure ulcer of sacral region, stage 4; N18.6 End stage renal disease; K65.9 Peritonitis, unspecified; L89.213 Pressure ulcer of right hip, stage 3; L89.313 Pressure ulcer of right buttock, stage 3; M86.9 Osteomyelitis, unspecified; M00.9 Pyogenic arthritis, unspecified; F11.20 Opioid dependence, uncomplicated; L97.419 Non-pressure chronic ulcer of right heel and midfoot with unspecified severity; E10.52 Type 1 diabetes mellitus with diabetic peripheral angiopathy with gangrene; I96 Gangrene, not elsewhere classified; F41.9 Anxiety disorder, unspecified; E43 Unspecified severe protein-calorie malnutrition; M19.90 Unspecified osteoarthritis, unspecified site; E03.9 Hypothyroidism, unspecified; F32.9 Major depressive disorder, single episode, unspecified; I95.9 Hypotension, unspecified; G89.4 Chronic pain syndrome; S91.201A Unspecified open wound of right great toe with damage to nail, initial encounter; D63.8 Anemia in other chronic diseases classified elsewhere; R00.1 Bradycardia, unspecified; E10.42 Type 1 diabetes mellitus with diabetic polyneuropathy; E10.69 Type 1 diabetes mellitus with other specified complication; E10.22 Type 1 diabetes mellitus with diabetic chronic kidney disease; E10.65 Type 1 diabetes mellitus with hyperglycemia; E10.649 Type 1 diabetes mellitus with hypoglycemia without coma; Z88.8 Allergy status to other drugs, medicaments and biological substances; Z91.011 Allergy to milk products; Z91.19 Patient's noncompliance with other medical treatment and regimen; Z79.4 Long term (current) use of insulin; Z93.3 Colostomy status; Z68.24 Body mass index [BMI] 24.0-24.9, adult; Z93.1 Gastrostomy status; Z87.81 Personal history of (healed) traumatic fracture; Z83.3 Family history of diabetes mellitus; Z79.899 Other long term (current) drug therapy; X58.XXXA Exposure to other specified factors, initial encounter; Y93.89 Activity, other specified; Y92.89 Other specified places as the place of occurrence of the external cause; Y99.8 Other external cause status
CPT/HCPCS: 10078; 10183; 10195; 10783; 32100; 32110; 50010; 50101; 50386; 50403; 53353; 53354; 62110; 62900; 70005

== ENCOUNTER 2017-08-03 23:16 | Inpatient (IN) | payer OTHER ==
[~2017-08-03] VITALS: Ht 182.9 cm; Wt 70.3 kg
--- NOTE | ~2017-08-03 | HC ---
[facility] [place] [address] CONSULTATION Name: JOHANA COYLE Room #: [facility] IN ..#: [id number] Admission: 08/04/17 Attend Phys: Omar Edgar MD Discharge: Date of : 68 Report #: [id number] THIS REPORT FOR: //name// CC: Omar Morillo DATE OF SERVICE: 08/04/2017 REASON FOR CONSULTATION: I was asked to evaluate concerning septic shock in the setting of end-stage renal disease. HISTORY OF PRESENT ILLNESS: The patient is a 47-year-old known to me from his previous hospitalizations, who has had chronic decubiti. Most recently, he has been undergoing treatment for a sacral decubitus. He has been undergoing debridements along with wound care. He completed a prolonged course of IV antibiotic therapy with Unasyn. Presents now with abdominal pain and obstruction. He has been residing at [facility]. No fever, chills or sweats. He has a diverting colostomy which has retracted and he is having difficulty keeping a bag in place. Had some nausea, no vomiting. Small amount of stool out of his anus. No definite fever. Comes in with hypotension and leukocytosis. Placed in the Intensive Care Unit, now on vasopressors, has received fluid resuscitation. Blood pressure has improved. He remains alert and cooperative. He is on 2 liters of oxygen per nasal cannula. REVIEW OF SYSTEMS: Otherwise, negative with no cough or sputum production. No chest pain or discomfort. PAST MEDICAL HISTORY, FAMILY HISTORY AND SOCIAL HISTORY: Unchanged from his previous consultations and that of his current history and physical. ALLERGIES: NO MEDICATIONS BUT HAS LACTOSE INTOLERANCE, CELIAC SPRUE WITH SIGNIFICANT GLUTEN SENSITIVITY. PHYSICAL EXAMINATION: VITAL SIGNS: Currently, afebrile, hemodynamically stable on vasopressors. He was alert. CHEST: Clear. HEART: Regular. ABDOMEN: Mildly distended. His colostomy had a very small opening which was stenotic. There was a small amount of liquid stool in the bag. EXTREMITIES: Sacral wound was clean. Right heel wound clean. NEUROLOGIC: Generalized weakness. LABORATORY STUDIES: CT scan of the abdomen and pelvis showed extensive stool in [address] [address] CONSULTATION Name: JOHANA COYLE Debo Room #: 241-P ADM IN .R.#: [id number] Admission: 08/04/17 Attend Phys: Omar Edgar MD Discharge: Date of : 68 Report #: [id number] the right colon to the transverse colon, extensive small bowel dilatation diffusely all the way to the stomach. CRP 38. Lactate 2.4. BNP 9245. Sodium 130, potassium 5.2, bicarbonate is 17, creatinine 4.8, lipase 44, alkaline phosphatase 205, bilirubin 0.4, ALT 12. Hemoglobin 11, WBC 12.3, platelet count 209,000. IMPRESSION: A 47-year-old with end-stage renal disease, diabetes, significant peripheral vascular disease, had multiple amputations including a penectomy and has had failure of his sacral wound to heal despite extensive wound care and surgical debridement along with prolonged antibiotic therapy. Presents now with colonic obstruction symptoms and small bowel dilatation. I am suspecting this may be related to his colostomy stenosis. RECOMMENDATIONS: Recommend continuing IV antibiotic therapy and full support with General Surgery evaluation. May need NG tube suction if has more issues. <ELECTRONICALLY SIGNED> By: Jorge Alcantara MD 08/05/17 1201 0955 1029 Jorge Alcantara MD /nt
--- NOTE | ~2017-08-03 | HC ---
[facility] [place] [address] CONSULTATION Name: JOHANA COYLE Room #: 241-P ADM IN M.R.#: [id number] Admission: 08/04/17 Attend Phys: Omar Edgar MD Discharge: Date of : 68 Report #: [id number] THIS REPORT FOR: //name// CC: Omar Morillo ENDOCRINE CONSULTATION LOCATION: [facility] room # 241. SUBJECTIVE: One of multiple recent admissions for this 47-year-old white male with diabetes mellitus in chronically poor control, chronic renal failure on dialysis, and multiple other medical problems. The patient was admitted on this occasion for septic shock and metabolic acidosis. Blood sugar control had been improved on a regimen of low dose lispro t.i.d. and bedtime Glargine since last hospitalization at the end of last year; however, glucoses have increased over the past 24 hours with sepsis, dehydration, etc. Since admission, the patient has been both hyper and hypoglycemic with doses of lispro and at least one dose of bedtime Levemir. Otherwise, the patient is unable to elaborate any endocrine history since prior hospital dismissal. CURRENT MEDICATIONS: At the time of consultation include the insulin as mentioned above, enoxaparin, olanzapine, sertraline, ascorbic acid, hydrocodone, multivitamins, gabapentin, levothyroxine, simethicone, ondansetron, acetaminophen, vancomycin, metoclopramide, sevelamer, ampicillin and possibly other medication. OBJECTIVE: LABORATORY DATA: Since admission, blood sugars have been extremely variable with both hyper and hypoglycemia. Creatinine is 3.1, phosphorus 2.0. PHYSICAL EXAMINATION: GENERAL: A thin 47-year-old white male, in no acute distress. VITAL SIGNS: Height is reported to be 6 feet from prior hospitalizations. The patient is afebrile, heart rate 76 and regular, blood pressure 140/80. SKIN: Kind of doughy with decreased turgor. He is slightly pale. HEENT: PERRL. CHEST: Clear. ABDOMEN: As before with evidence of prior surgery. EXTREMITIES: Show no edema, cyanosis or clubbing. NEUROLOGIC: The patient is alert and able to answer questions without difficulty. ASSESSMENT AND PLAN: 1. Diabetes mellitus, out of control with hyper and hypoglycemia. 2. Complications of diabetes with chronic renal failure, on dialysis. 3. Hypothyroidism, previously stable on current replacement at last admission. [address] [address] CONSULTATION Name: JOHANA COYLE Room #: 241-P [facility] IN [facility]#: [id number] Admission: 08/04/17 Attend Phys: Omar Edgar MD Discharge: Date of : 68 Report #: [id number] PLAN: 1. Will evaluate interval care with hemoglobin A1c. 2. Will attempt to stabilize on prior dietary intake and reestablish low dose q.i.d., insulin in an appropriate fashion to keep glucose control improved as it has been since the last admission. Thank you very much for this consultation. I will continue to follow the patient with you for evaluation and management of diabetes mellitus. <ELECTRONICALLY SIGNED> By: Bj Robles MD 08/06/17 1358 1558 0218 Bj Robles MD /nt
--- NOTE | ~2017-08-03 | HC ---
[facility] [place] [address] CONSULTATION Name: JONNAJOHANA Edmondson Room #: 401-I [facility] IN ..#: [id number] Admission: 08/04/17 Attend Phys: Omar Edgar MD Discharge: 08/08/17 Date of : 68 Report #: [id number] THIS REPORT FOR: //name// CC: Omar Morillo DATE OF SERVICE: 08/04/2017 ATTENDING PHYSICIAN: Dr. Morales. REASON FOR CONSULTATION: End-stage renal disease, requiring dialysis. HISTORY OF PRESENT ILLNESS: The patient is well known to our service, chronic and severe debility, multiple nonhealing wounds including sacral wound and right heel wound, has essentially been continuously hospitalized for the last couple of years with a couple of short stays in a [facility] and that was it. He was last discharged 2 weeks ago, was then in f[facility] for that period of time, overnight developed abdominal pain and low blood pressure and came to the Emergency Room. PAST MEDICAL HISTORY: Extensive. 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 diff, multiple wounds, severe debility and weakness, necrosis of multiple fingertips. He had a penectomy for gangrene. He has a colostomy for wound healing and a severe nonhealing sacral wound. MEDICATIONS: As listed include ascorbic acid, Creon tablets, Aranesp 40 mcg weekly, Lovenox 30 mg subcutaneously, Nephrocaps 1 daily, Neurontin 100 mg daily, insulin, hydralazine 50 mg daily, levothyroxine 125 mcg daily, lisinopril 20 mg daily, metoclopramide 5 mg a.c. and at bedtime, Zyprexa 15 mg at bedtime, Zoloft 100 mg daily, Renvela. He gets I believe hydrocodone, possibly oxycodone as well for pain, gabapentin, zinc 220 mg daily. SOCIAL HISTORY: , but has not lived at home for some time. A who comes in on rare occasions to see him. REVIEW OF SYSTEMS: GENERAL: The patient is very lethargic, difficulty with his review of systems, says he has had some abdominal pain overnight. EYES: His vision is known to be poor. ENT: Apparently, he has been swallowing. ENDOCRINE: Positive for the diabetes and thyroid disease. RESPIRATORY: He is not short-winded. CARDIAC: There is no chest pain. GASTROINTESTINAL: He has got the colostomy, yielding some. NEUROLOGIC: Diffusely weak, lethargic with peripheral neuropathy. [facility] [address] [place] [address] CONSULTATION Name: JOHANA COYLE Room #: 401-I [facility]#: [id number] Admission: 08/04/17 Attend Phys: Omar Edgra MD Discharge: 08/08/17 Date of : 68 Report #: [id number] PHYSICAL EXAMINATION: GENERAL: Debilitated and weak gentleman. SKIN: Multiple wounds. He has got the large sacral wound and the right heel wound, which have not healed much. HEENT: Extraocular movements appear to be full. No scleral icterus. Mucous membranes are dry. NECK: Supple. CHEST: Clear, but shallow. HEART: Regular. ABDOMEN: Has a colostomy, difficult to examine, the bag has been nonfunctional and there is stool all over the place. NEUROLOGIC: Able to move all extremities. He is quite weak. LABORATORY DATA: Hemoglobin 11.1, white count 12.3, platelets 209. Sodium 130, potassium 5.2, chloride 97, bicarbonate 17, creatinine 4.8, BUN 85. ASSESSMENT AND PLAN: 1. End-stage renal disease. Continues on dialysis. He has a dialysis catheter. Appropriate orders will be placed today. Fluid volume status appears to be reasonably good at the current time. 2. Multiple nonhealing wounds. 3. Severe chronic debility with no hope of meaningful recovery. 4. Diabetes mellitus with triopathy. 5. Severe gastroparesis. <ELECTRONICALLY SIGNED> By: Chase Barroso MD 08/11/17 0822 0848 0 Chase Barroso MD /nt
--- NOTE | ~2017-08-03 | HC ---
[facility] [place] [address] CONSULTATION Name: JONNAJOHANA Edmondson Room #: 241-P [facility] IN M.R.#: [id number] Admission: 08/04/17 Attend Phys: Omar Edgar MD Discharge: Date of : 68 Report #: [id number] THIS REPORT FOR: //name// CC: Omar Morillo DATE OF SERVICE: 08/04/2017 REFERRING PROVIDER: Omar Edgar MD REASON FOR CONSULT: Abdominal pain. HISTORY OF PRESENT ILLNESS: The patient is a 47-year-old male known to me with a longstanding history of diabetes, end-stage renal disease on hemodialysis and vasculopathy who has had multiple decubitus ulcers including his sacral region, bilateral ischial regions and lower extremities. The patient underwent multiple amputations of several digits as well as his penis secondary to ischemia and ultimately underwent debridement with diverting colostomy due to his sacral wound. Due to the patient's vasculopathy, he had development of retraction and stricturing of his colostomy and was to be managed as an outpatient for likely colostomy revision. Unfortunately, the patient has developed significant abdominal pain and distention and hypotension for which he has now been admitted to the intensive care unit and I am asked to evaluate as a CT scan shows dilated enteric tract all the way to the level of the colostomy with no colostomy output for 36 hours. Upon evaluation, the patient's ostomy bag is full and the nurses say that spontaneously this began having large output over the past couple of hours. He states he is feeling well currently. PAST MEDICAL HISTORY: End-stage renal disease, on hemodialysis, insulin-dependent diabetes mellitus, multiple decubitus wounds, multiple amputations, colostomy, PEG tube placement, severe protein calorie malnutrition. HOME MEDICATIONS: Propranolol, Neurontin, Aranesp, Lovenox, MiraLax, insulin, hydralazine, lisinopril, MS Contin, Reglan, Renvela, vitamin C, vitamin D3, zinc, Zoloft, Zyprexa, Creon, Dilaudid, Synthroid, Nephrocaps. ALLERGIES: GLUTEN and MILK. FAMILY HISTORY: Reviewed and noncontributory. SOCIAL HISTORY: Does not currently utilize tobacco, alcohol or illicit drugs. REVIEW OF SYSTEMS: GENERAL: The patient denies nocturnal fevers or chills. HEENT: No change in vision, change in hearing. NECK: No swelling or difficulty swallowing. [address] [address] CONSULTATION Name: JOHANA COYLE Room #: 241-P [facility] IN [facility]#: [id number] Admission: 08/04/17 Attend Phys: Omar Edgar MD Discharge: Date of : 68 Report #: [id number] HEART: No chest pain or palpitations. LUNGS: No cough or shortness of breath. ABDOMEN: No nausea, no vomiting. GENITOURINARY: No dysuria or hematuria. ENDOCRINE: No polyuria, polydipsia. HEMATOLOGIC: No history of bleeding or easy bruising. EXTREMITIES: No history weakness or limited range of motion. NEUROLOGIC: No history of syncope or near syncopal episodes. SKIN AND INTEGUMENT: Longstanding history of decubitus wounds. PSYCHIATRIC: History of depression and anxiety. PHYSICAL EXAMINATION: VITAL SIGNS: Temperature 98.5, pulse 98, respirations 14, blood pressure 97/63 on low dose Levophed. GENERAL: Alert and oriented, in no acute distress. HEENT: Normocephalic, atraumatic. Pupils equal, round, reactive to light. NECK: Supple, without lymphadenopathy. Trachea midline. HEART: Regular rate and rhythm. LUNGS: Clear to auscultation bilaterally. ABDOMEN: Soft, currently nontender and nondistended. Colostomy is functioning with high volume at this time. PEG tube is intact and functional. GENITOURINARY: Normal external male genitalia with the exception of a partial penectomy. EXTREMITIES: No clubbing, cyanosis or edema. NEUROLOGIC: Cranial nerves 2-12 are grossly intact. PSYCHIATRIC: Normal mood and affect. SKIN AND INTEGUMENT: Bilateral ischial and sacral decubitus wounds appear clean at this time. LABORATORY AND X-RAY DATA: CBC shows white blood cell count 12.3 thousand, hemoglobin 11.1, platelets 209,000, creatinine 4.8. Liver function enzymes are normal. Albumin 1.9. BNP is elevated at 9245. Lactic acid was initially 2.4, improved to 1.7 with IV fluid rehydration. CT scan of the abdomen and pelvis as per HPI showed a relative obstruction of the level of his colostomy, although this has resolved with large colostomy output since. ASSESSMENT AND PLAN: A 47-year-old male with multiple medical problems including longstanding diabetes mellitus, end-stage renal disease on hemodialysis, and overwhelming vasculopathy leading to multiple amputations and nonhealing wounds. The patient does have colostomy retraction and stricturing, although is currently functional after a period of 36 hours of a relative obstruction due to this. The patient undoubtedly requires a revision, although this comes with high risk secondary to cardiopulmonary risk from anesthesia in the perioperative setting as well as the high degree of risk of this happening again secondary to his poor blood flow to the colon. At this time, I recommend continuation of aggressive supportive care with weaning pressors. Continue [address] [address] CONSULTATION Name: JOHANA COYLE Room #: 241-P ADM IN ..#: [id number] Admission: 08/04/17 Attend Phys: Omar Edgar MD Discharge: Date of : 68 Report #: [id number] antibiotics per the direction of the other services and continued wound care and ultimately provided he improves from the septic episode, he may be a candidate for revision of his colostomy this admission. That is of course provided we get cardiopulmonary clearance. I sincerely appreciate this consult. I will follow closely and leave any further recommendations in the patient's chart as appropriate. <ELECTRONICALLY SIGNED> By: Norma Zuniga MD, FACS 08/06/17 1041 [id number] Norma Zuniga MD, FACS /nt
[~2017-08-03 23:16] MED LIST changes: +DILAUDID 2 MG TA2 MG PO; +HYDRALAZINE 2525 MG PO; +LANTUS SUBQ; +LEVOTHYROXINE100 MC1 PO; +LISINOPRIL20 MG PO; +MIRALAX17 G1 PO; +REGLAN 5 MG TAB5 MG PO; +UNASYN 3 GM VIAL3 G1 IV; +VITAMIN D3400 UNIT PO; +ZINC SULFATE 2220 MG PO; +ZOLOFT50 MG PO; +ZYPREXA15 MG PO
[2017-08-03 23:21] VITALS: BP 71/32
[2017-08-03] MEDS ORDERED: LANTUS100 UNIT/M SUBQ (23:40)
[2017-08-03] MEDS ORDERED: NOVOLOG FL100 UNIT/M SUBQ ×2 (23:41)
[2017-08-03] MEDS ORDERED: TRAMADOL 50 MG50 MG PO (23:42)
[2017-08-03] MEDS ORDERED: TYLENOL325 MG PO (23:43)
[2017-08-03] MEDS ORDERED: PROPANOLOL PO (23:44)
[2017-08-03] MEDS ORDERED: BENEPROTEIN1 EACH PO (23:44)
[2017-08-03] MEDS ORDERED: VITAMIN D35000 UNIT PO (23:45)
[2017-08-03] MEDS ORDERED: ENOXAPARIN30 MG/0.1 SUBQ (23:45)
[2017-08-04] VITALS (85 sets, daily range): BP systolic 64–163; BP diastolic 38–86
[2017-08-04 00:29] LABS: HEMATOCRIT 34.5 % (42.0-52.0); HEMOGLOBIN 11.1 gm/dL (14.0-18.0); MCH 32.6 pg (26.0-34.0); MCHC 32.1 g/dL (28.0-37.0); MCV 101.7 fL (80.0-100.0); RBC 3.39 mil/uL (4.50-6.00); RDW 15.2 % (10.5-14.5); WBC 12.3 thou/uL (4.0-11.0)
[2017-08-04 00:38] LABS: ANION GAP 16 mmol/L (7-16); BUN 85 mg/dL (7-18); CALCIUM 8.6 mg/dL (8.5-10.1); CHLORIDE 97 mmol/L (98-107); CO2 17 mmol/L (21-32); CREATININE 4.8 mg/dL (0.7-1.3); GLUCOSE 242 mg/dL (74-106); POTASSIUM 5.2 mmol/L (3.5-5.1); SODIUM 130 mmol/L (136-145)
[2017-08-04 00:46] LABS: ALBUMIN 1.9 g/dL (3.4-5.0); LIPASE 44 U/L (73-393); SGOT 24 U/L (15-37); SGPT 12 U/L (30-65); TOTAL BILIRUBIN 0.4 mg/dL (<0.1-1.0); TOTAL PROTEIN 6.1 g/dL (6.4-8.2); TROPONIN-I < 0.04 ng/mL (<0.06)
[2017-08-04 01:00] LABS: BE(vivo) -11.9 mmol/L (-2 to +3); HCO3 13.3 mmol/L (22.0-26.0); PCO2 VENOUS 28.6 mmHg (41.0-51.0); PO2 VENOUS 154.9 mmHg (35.0-45.0)
[2017-08-05] VITALS (63 sets, daily range): BP systolic 69–137; BP diastolic 49–95
[2017-08-05 03:37] LABS: HEMATOCRIT 31.7 % (42.0-52.0); HEMOGLOBIN 10.5 gm/dL (14.0-18.0); MCH 33.3 pg (26.0-34.0); MCHC 33.2 g/dL (28.0-37.0); MCV 100.3 fL (80.0-100.0); PLATELET COUNT 203 thou/uL (150-400); RBC 3.16 mil/uL (4.50-6.00); RDW 14.9 % (10.5-14.5); WBC 7.2 thou/uL (4.0-11.0)
[2017-08-05 03:48] LABS: ALBUMIN 1.4 g/dL (3.4-5.0); CALCIUM 8.2 mg/dL (8.5-10.1); POTASSIUM 3.3 mmol/L (3.5-5.1)
[2017-08-05 03:56] LABS: CREATININE 3.1 mg/dL (0.7-1.3)
[2017-08-05 04:59] LABS: ABSOLUTE NEUTROPHILS 4.5 thou/uL (1.4-8.2)
[2017-08-05 20:09] LABS: GLYCOHEMOGLOBIN (HGB A1C) 6.7 % (4.8-5.6)
[2017-08-06] VITALS (23 sets, daily range): BP systolic 90–152; BP diastolic 60–87
[2017-08-06 04:40] LABS: HEMATOCRIT 27.7 % (42.0-52.0); MCH 32.6 pg (26.0-34.0); MCHC 32.5 g/dL (28.0-37.0); MCV 100.3 fL (80.0-100.0); RBC 2.76 mil/uL (4.50-6.00); RDW 15.1 % (10.5-14.5)
[2017-08-06 04:42] LABS: ALBUMIN 1.4 g/dL (3.4-5.0); CALCIUM 8.4 mg/dL (8.5-10.1); PHOSPHORUS 3.7 mg/dL (2.5-4.9)
[2017-08-06 04:43] LABS: CREATININE 4.1 mg/dL (0.7-1.3)
[2017-08-07] VITALS (26 sets, daily range): BP systolic 89–188; BP diastolic 52–91
[2017-08-07 04:53] LABS: HEMATOCRIT 27.9 % (42.0-52.0); HEMOGLOBIN 9.2 gm/dL (14.0-18.0); MCH 33.2 pg (26.0-34.0); MCV 100.7 fL (80.0-100.0); RBC 2.77 mil/uL (4.50-6.00); RDW 15.3 % (10.5-14.5); WBC 4.2 thou/uL (4.0-11.0)
[2017-08-07 05:26] LABS: ALBUMIN 1.4 g/dL (3.4-5.0); CALCIUM 8.4 mg/dL (8.5-10.1); POTASSIUM 3.3 mmol/L (3.5-5.1); TOTAL BILIRUBIN 0.4 mg/dL (<0.1-1.0); TOTAL PROTEIN 4.8 g/dL (6.4-8.2)
[2017-08-07 05:28] LABS: CREATININE 5.2 mg/dL (0.7-1.3)
[2017-08-08 04:00] VITALS: BP 184/84
[2017-08-08 07:45] VITALS: BP 144/82
[2017-08-08 15:45] VITALS: BP 130/68
[2017-08-22] MEDS ORDERED: [UNRECOGNIZED DRUG - OTHER] PO (13:20)
[2017-08-22] MEDS ORDERED: NOVOLOG FL100 UNIT/M SUBQ (13:25)
== END 2017-08-08 17:25 | DRG 871 ==
LOC: ER 23:16 → ICU 08-04 01:55 → EROBS 08-04 01:55 → ICU 08-04 02:35 → 4N 08-07 13:51
PROVIDERS: Emergency Medicine; Hospitalist; Internal Medicine Endocrinology, Diabetes & Metabolism; Internal Medicine Nephrology
PROC: 5A1D70Z Performance of Urinary Filtration, Intermittent, Less than 6 Hours Per Day (ICD-10-PCS; principal; 2017-08-04)
PROC: 5A1D70Z Performance of Urinary Filtration, Intermittent, Less than 6 Hours Per Day (ICD-10-PCS; 2017-08-06)
PROC: 5A1D70Z Performance of Urinary Filtration, Intermittent, Less than 6 Hours Per Day (ICD-10-PCS; 2017-08-08)
DX: A41.9 Sepsis, unspecified organism (principal); R65.21 Severe sepsis with septic shock; N18.6 End stage renal disease; E43 Unspecified severe protein-calorie malnutrition; L89.614 Pressure ulcer of right heel, stage 4; L89.154 Pressure ulcer of sacral region, stage 4; I12.0 Hypertensive chronic kidney disease with stage 5 chronic kidney disease or end stage renal disease; A04.72 Enterocolitis due to Clostridium difficile, not specified as recurrent; M19.90 Unspecified osteoarthritis, unspecified site; F41.9 Anxiety disorder, unspecified; K31.84 Gastroparesis; F32.9 Major depressive disorder, single episode, unspecified; K59.00 Constipation, unspecified; E87.6 Hypokalemia; E83.39 Other disorders of phosphorus metabolism; D64.9 Anemia, unspecified; D69.6 Thrombocytopenia, unspecified; E10.22 Type 1 diabetes mellitus with diabetic chronic kidney disease; E10.43 Type 1 diabetes mellitus with diabetic autonomic (poly)neuropathy; E10.649 Type 1 diabetes mellitus with hypoglycemia without coma; E10.65 Type 1 diabetes mellitus with hyperglycemia; E10.51 Type 1 diabetes mellitus with diabetic peripheral angiopathy without gangrene; E03.9 Hypothyroidism, unspecified; Z98.84 Bariatric surgery status; Z87.81 Personal history of (healed) traumatic fracture; Z99.2 Dependence on renal dialysis; Z93.3 Colostomy status; Z93.1 Gastrostomy status; Z68.21 Body mass index [BMI] 21.0-21.9, adult; Z79.4 Long term (current) use of insulin; Z79.899 Other long term (current) drug therapy; Z91.011 Allergy to milk products; Z91.09 Other allergy status, other than to drugs and biological substances
CPT/HCPCS: 10078; 10790; 32100

== ENCOUNTER 2017-08-29 05:18 | Inpatient (IN) | payer OTHER ==
[2017-08-29] VITALS (25 sets, daily range): BP systolic 71–105; BP diastolic 39–68
[~2017-08-29] VITALS: Ht 182.9 cm; Wt 79.2 kg
--- NOTE | ~2017-08-29 | S ---
[facility] [place] [address] SURGICAL PATH RPT PROCEDURE Name: JOHANA HANDLEY Debo Room #: 245-P ADM IN M.R.#: [id number] Admission: 08/29/17 Date of : 68 Discharge: Report #: [id number] Path Case #: [id number] PATHOLOGY REPORT COLLECTION DATE: 08/29/2017 RECEIVED DATE: 08/29/2017 SUBMITTING PHYS: Dr. Norma Zuniga OTHER PHYS: Dr. Roel Morillo SPECIMEN(S) RECEIVED: A.Right colon B.Colostomy/Ileostomy * * * * * * * * * * * * FINAL DIAGNOSIS: A. Terminal ileum, appendix and right colon, hemicolectomy: - 1.4 cm inflamed tubular adenoma without high-grade dysplasia. - Large intestine showing ischemic colitis along with serositis. - Appendix with reactive changes. - 12.5 cm of terminal ileum with reactive changes and serositis. - Seventeen reactive lymph nodes (0/14) - Margins showing focal ischemic changes. B. Colostomy: - Marked acute inflammation along with fibrinoid surface degeneration consistent with colostomy site. IUV(^:pit; 08/31/2017) PATHOLOGIST: Kamille Schaffer M.D. REPORT ELECTRONICALLY SIGNED BY: Kamille Schaffer M.D. DATE/TIME: 08/31/2017 16:56 * * * * * * * * * * * * GROSS PATHOLOGY: A. Received fresh in a red biohazard bag labeled, "Johana Handley, hemicolectomy," is a right hemicolectomy consisting of ileum (12.5 x 4.4 cm), cecum (13.7 x 10.5 cm) and ascending colon (27.0 x 12.5 cm). There is attached pericolic fat measuring 16.0 cm. The serosal surface is gonzalez-triplett with abundant overlying adhesions. The specimen is longitudinally opened to reveal the lumen to be packed with triplett-yellow material that is adhered to the mucosal wall. The large intestine mucosa is triplett and smooth with extremely flattened folds. There are multiple areas of green discoloration measuring up to 3.5 cm. There is a polyp in the cecum, 3.0 cm from the ileocecal valve and measures 1.4 x 1.0 x 0.8 cm. The small intestine mucosa shows reduced folds and areas that are markedly edematous. No additional [address] [address] SURGICAL PATH RPT PROCEDURE Name: JOHANA HANDLEY Debo Room #: 245-P [facility] IN ..#: [id number] Admission: 08/29/17 Date of : 68 Discharge: Report #: [id number] Path Case #: [id number] polyps or mass lesions identified. The appendix measures 8.5 cm in length and up to 0.8 cm in diameter. The serosal surface is triplett-brown and partially encased in adhesions. Sectioning reveals a pinpoint to patent lumen and no discrete fecaliths or masses. Sectioning the attached fat reveals multiple lymph node candidates. A1: Proximal resection margin A2: Distal resection margin A3: Ileum showing edematous mucosa A4-A5: Large intestine mucosa A6: Cecal polyp A7: Appendix A8: Largest lymph node serially sectioned A9: Two bisected lymph nodes, one differentially inked black A10: One lymph node bisected A11-A13: Additional lymph node candidates B. The specimen is received in formalin, labeled "Handley, Johana, colostomy," and consists of a circular segment of skin measuring 2.5 x 2.4 x 2.4 cm with a central stoma measuring 0.4 cm. Transplant Rn sections are submitted in B1. (SDY; 08/30/2017) CLINICAL HISTORY: Colostomy in place Hemicolectomy specimen INITIAL CPT CODE(S): A; 02207 B; 31901 Professional services performed by [facility] at [facility] [address], [place] [address] Technical services performed by [employer] at [address] [place] [address], [address], [place] [address]. [facility] [address] [place] [address] PHONE: [phone] DIRECTOR: Perry Pedroza M.D. * * * END OF REPORT * * *
--- NOTE | ~2017-08-29 | O ---
[facility] [place] [address] OPERATIVE REPORT Name: JOHANA COYLE Room #: 245-P [facility] IN M.R.#: [id number] Admission: 08/29/17 Attend Phys: Norma Zuniga MD, Discharge: Date of : 68 Report #: [id number] THIS REPORT FOR: //name// CC: Tung Zuniga DATE OF SERVICE: 08/29/2017 PREOPERATIVE DIAGNOSES: 1. Stenotic and nonfunctioning end transverse colostomy. 2. Severe protein calorie malnutrition with generalized debility. 3. End-stage renal disease, on hemodialysis. 4. Type 1 insulin-dependent diabetes mellitus. 5. Celiac disease with complete gluten sensitivity. 6. Lactose intolerance. 7. 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 8. Prior longitudinal midline incision with suspected intraabdominal adhesions. POSTOPERATIVE DIAGNOSES: 1. Stenotic and nonfunctioning end transverse colostomy. 2. Severe protein calorie malnutrition with generalized debility. 3. End-stage renal disease, on hemodialysis. 4. Type 1 insulin-dependent diabetes mellitus. 5. Celiac disease with complete gluten sensitivity. 6. Lactose intolerance. 7. 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 8. Longitudinal midline wound with dense and significant intraabdominal adhesions. 9. Evidence of prior Ericka-en-Y gastrojejunostomy. 10. Extreme right-sided megacolon with a contained prior perforation containing stool. 11. Incarcerated recurrent incisional ventral hernia. 12. Recurrent parastomal hernia. 13. Loss of abdominal domain. 14. Ischemic/necrotic abdominal wall fascia with contamination. PROCEDURES PERFORMED: 1. Exploratory laparotomy. 2. Extensive lysis of adhesions lasting 127 minutes. 3. Debridement of ischemic/necrotic/infected abdominal wall fascia. 4. Drainage of intraabdominal stool collection. 5. Right hemicolectomy with resection of a stenotic colostomy. 6. Creation of an ileostomy. 7. Primary suture repair of an incarcerated parastomal hernia containing [facility] [address] [place] [address] OPERATIVE REPORT Name: JOHANA COYLE Room #: 245-P [facility] IN M.R.#: [id number] Admission: 08/29/17 Attend Phys: Norma Zuniga MD, Discharge: Date of : 68 Report #: [id number] omentum. 8. Primary suture repair of an incarcerated recurrent incisional ventral hernia. 9. Bilateral component separation of the anterior abdominal wall. 10. Adjacent tissue transfer closure of the anterior abdominal wall measuring 37 x 33 cm in dimension (1221 square cm). 11. Topical wound VAC device placement (Prevena). 12. Modifier-22 procedure for extreme difficulty of procedure secondary to the lengthy lysis of adhesions of greater than 2 hours with massive right-sided megacolon that was greater than 20 cm in diameter and caused significant difficulty in dissection. This was in addition to the numerous hernias found as well as the abnormal anatomy from what appears to be a prior Ericka-en-Y gastrojejunostomy that was unknown preoperatively. This also required complex techniques to close the abdomen as delineated above and added to the overall complexity and pushed the total operative time to nearly 4 hours as opposed to the usual 60-minute procedure. SURGEON: Norma Zuniga MD SHAFT MECHANIC: Roel Rosen MD ANESTHESIA: General endotracheal anesthesia. ESTIMATED BLOOD LOSS: 100 mL COMPLICATIONS: None appreciated. SPECIMENS: Colon, colostomy, necrotic fascia; all to pathology. INDICATIONS: The patient is a 47-year-old male who is chronically ill and debilitated with his extreme severe protein calorie malnutrition as well as type 1 diabetes mellitus requiring insulin and end-stage renal disease, on hemodialysis, who has severe peripheral vascular disease and has had numerous amputations including a partial penectomy and has severe stage 4 decubitus wounds. The patient was given a colostomy as a protective measure due to his severe sacral wound and unfortunately, this became severely stenotic likely due to his poor blood flow. As the patient has been admitted on several occasions for obstructions as well as having inability to pass stool through his ostomy on multiple occasions, indication was for formal revision today with intraoperative findings as delineated above. DESCRIPTION OF PROCEDURE: After explaining the risks, benefits and alternatives of the procedure with the patient in detail in the preoperative holding area and obtaining written consent, the patient was brought to the operating room and placed supine on the operating room table. After conducting a thorough timeout procedure, verifying correct patient and procedure, the patient was given [address] [address] OPERATIVE REPORT Name: COYLEJOHANA Room #: 245-P [facility] IN .R.#: [id number] Admission: 08/29/17 Attend Phys: Norma Zuniga MD, Discharge: Date of : 68 Report #: [id number] general endotracheal anesthesia. Once adequate anesthesia was obtained, his SCDs were hooked up to pneumatic compression device. He was given a preoperative dose of antibiotics in line with the SCIP protocol. The patient's abdomen was prepped and draped in a standard surgical sterile fashion. A #10 bladed scalpel was used to create a longitudinal midline wound from the subxiphoid location to the suprapubic location, carried to the left of the patient's umbilicus following his prior incision site. Electrocautery was used to carry this down through skin and subcutaneous tissues to ensure hemostasis and we arrived upon a Israeli cheese midline fascia with multiple incarcerated recurrent incisional hernias as he has had numerous openings of his midline wound. A finger was placed in the abdomen and the fascia was opened along its entirety in a controlled fashion to prevent injury from thermal spread from electrocautery burn. Willam clamps were then placed on the edges of the midline wound with what we thought was fascia and we proceeded to initiate an extensive lysis of adhesions lasting 127 minutes in length. Ultimately, we were able to take down all interloop adhesions as well as all adhesions of omentum and bowel from the posterior aspect of the anterior abdominal wall. Once we had taken all these adhesions down, we saw a massively dilated right-sided colon to 20 cm in diameter, filled with inspissated thick heavy stool. Upon dissecting, we did find a contained stool ball that was a chronic perforation likely from one of his prior episodes. The colon was very difficult to handle due to its sheer size and weight, but ultimately we were able to mobilize this along the right white line of Toldt and medially rotate the colon. An appropriate point was identified on the terminal ileum approximately 10 cm proximal to the ileocecal valve and a window was made in the mesentery with electrocautery. The bowel was transected at this location using the CHELSIE-75 mm linear stapler with a blue load. As this was difficult to handle, the abdominal wall was elevated and the colon was transected at the level of the colostomy on the inside of the abdomen with a blue load contour stapler. There was evidence of incarcerated omentum contained within a parastomal hernia as well that had been reduced upon dissecting the adhesions. We now proceeded to core out the colostomy with electrocautery, carried through to fascia and once resected, was passed off the field as colostomy specimen. Now that we had mobilized the full right colon and transected the terminal ileum, we were able to elevate the colon and transect its mesentery with the EnSeal X1 advanced energy device for complete hemostasis. The specimen was then passed off the field as right colon. Evaluation of the intra-abdominal domain at this juncture showed findings consistent with a Ericka-en-Y gastrojejunostomy. There was a window in the mesentery consistent with a Waggoner defect, which was closed using 3-0 PDS in standard running fashion. The stomach was tethered to the abdominal wall and this was left attached due to his prior gastrostomy tube. Take down of this would likely result in an open gastrotomy that would need repair. Anesthesia placed an NG tube at this time and it was palpated within the gastric lumen. The stool ball that had been encountered was fully evacuated and passed off the field and multiple chunks and as such, we now copiously irrigated the intraabdominal domain using 10 liters of normal saline until it ran clear throughout. We did [facility] [address] [place] [address] OPERATIVE REPORT Name: JOHANA COYLE Room #: 245-P [facility] IN ..#: [id number] Admission: 08/29/17 Attend Phys: Norma Zuniga MD, Discharge: Date of : 68 Report #: [id number] not have diffuse disseminated contamination luckily as it was contained to one area and we kept contamination to a minimum. Now that we had thoroughly irrigated the abdominal wall, we chose the appropriate site in the patient's right mid abdomen for the ileostomy creation. This was brought through the abdominal wall after suturing closed the prior parastomal hernia at the fascial level using #1 PDS suture in standard running fashion. Orientation was preserved on the distal ileum that would become the ileostomy using Princeton clamps on the corners and we turned our attention to closure of the midline fascial wound. At this juncture, we identified the fascia was in fact retracted laterally down the midline for several centimeters and as such, electrocautery was used to create large skin flaps circumferentially. The hernia sac was resected and the abdominal wall was debrided of all nonviable ischemic tissue that was juxtaposed to the stool ball and was potentially infected as well. As this dissection was carried back, we arrived at the fascia which could be brought together with significant tension down the midline and as such, we performed a bilateral component separation of the anterior abdominal wall by scoring the lateral border of the rectus abdominis muscle on each side laterally, carried as far craniocaudal as possible which was an external oblique release and allowed medial mobilization down the midline. We were now able to bring the midline together with ease. We then proceeded to close the midline fascial wound using looped #1 PDS suture in standard running fashion using 2 different sutures, one run from inferior to superior and second from superior to inferior. When the sutures met, they were tied together. The skin wound was irrigated. It should be noted that two 19-Faroese round Brian-Post drains were placed intraabdominally prior to closure of the fascia, the one emanating from the left lower quadrant crosses in the pelvis and runs up through right paracolic gutter and similarly the one emanating from the right lower quadrant crosses in the pelvis and runs up through left paracolic gutter. Both drains were anchored to the skin using 2-0 nylon in a standard fashion. Now that we had fascial closure that was not under tension on the midline and had the ileum brought through the abdominal wall for the future ileostomy, I did perform an adjacent tissue transfer closure of the subcutaneous tissues of the abdominal wall as he is a vasculopath and has poor blood flow. This would be advantageous if the patient does form a dehiscence moving forward. Counter incisions were made internally using electrocautery to rotate vascularized pedicles of subcutaneous tissue medially, which were anchored down the midline using 3-0 PDS in a standard fashion. Now that we had vascularized tissue overlying the midline fascial wound, the skin was closed using skin lena. Topical wound VAC (Prevena) device was now placed to the midline wound. I now proceeded to mature the ileostomy. The staple line was removed with curved Hawley scissors and I proceeded to mature it in standard Wanda fashion using 3-0 Vicryl at the 12, 3, 6 and 9 o'clock positions to imbricate the ileostomy appropriately. Each of the resultant quadrants were anchored at the mucocutaneous junction using short runs of 3-0 Vicryl in standard fashion. Digital finger intubation showed this patent to a subfascial level. Sterile ileostomy appliance was now applied. At the end of the lengthy procedure, all instrument, needle and sponge counts were [facility] [address] [place] [address] OPERATIVE REPORT Name: COYLEJOHANA Room #: 245-P [facility] IN M.R.#: [id number] Admission: 08/29/17 Attend Phys: Norma Zuniga MD, Discharge: Date of : 68 Report #: [id number] correct. The patient tolerated the procedure without incident, was awakened in the operating room and transitioned to the recovery room in a stable condition with no apparent complications. <ELECTRONICALLY SIGNED> By: Norma Zuniga MD, FACS 08/30/17 0848 1802 [id number] Norma Zuniga MD, FACS /nt
--- NOTE | ~2017-08-29 | HC ---
[facility] [place] [address] CONSULTATION Name: COYLEJOHANA Room #: 435-P ADM IN M.R.#: [id number] Admission: 08/29/17 Attend Phys: Norma Zuniga MD, Discharge: Date of : 68 Report #: [id number] THIS REPORT FOR: //name// CC: Tung Zuniga REASON FOR CONSULTATION: End-stage renal disease. REASON FOR PRESENTATION: Post-surgical procedure with extensive adhesiolysis and debridement of ischemic, necrotic, infected abdominal wall fascia. HISTORY OF PRESENT ILLNESS: A 47-year-old with extensive past medical history. He is known to me from previous admissions. He is in end-stage renal disease due to diabetes mellitus with advanced peripheral vascular disease. He is also known to have chronic sacral wounds. He had a Ericka-en-Y gastrojejunostomy in the past. He was on PD and at one point had peritonitis. He also had gangrenous cholecystitis. He had dysfunctional colostomy with stricture and right-sided megacolon with associated perforation prior to the surgery and required an intervention and those are well delineated in the surgical notes from yesterday. I am being asked to evaluate his dialysis need. PAST MEDICAL HISTORY: 1. End-stage renal disease. 2. Peripheral vascular disease. 3. Numerous decub ulcers. 4. Numerous surgeries for gangrenous cholecystitis, peritonitis, gangrenous digits with multiple amputations. 5. Status post colostomy. 6. Status post PEG tube in the past. 7. Left IJ tunneled catheter. ALLERGIES: To GLUTEN. FAMILY HISTORY: Diabetes mellitus. SOCIAL HISTORY: He resides at [facility]. No drug or alcohol abuse. MEDICATIONS: Listed tramadol, acetaminophen, Zoloft, zinc sulfate, Renagel, insulin, and levothyroxine. REVIEW OF SYSTEMS: GENERAL: No fever or chills, decreased p.o. intake. CARDIOVASCULAR: No chest pain or palpitation. PULMONARY: No cough or hemoptysis. GASTROINTESTINAL: As per the history of present illness. MUSCULOSKELETAL: As per the history of present illness. [facility] [address] [place] [address] CONSULTATION Name: COYLEJOHANA Room #: 435-P [facility]#: [id number] Admission: 08/29/17 Attend Phys: Norma Zuniga MD, Discharge: Date of : 68 Report #: [id number] PHYSICAL EXAMINATION: GENERAL: He is alert, oriented, in no apparent distress. VITAL SIGNS: Blood pressure is marginal at 88/51. Pulse rate is 93. He is afebrile. HEAD AND NECK: No jugular distention. Right IJ tunnel catheter. CHEST: Decreased air entry bilaterally. CARDIOVASCULAR: No rub detected. ABDOMEN: Scars from the recent surgery with drains and colostomy. LOWER EXTREMITIES: No edema. LABORATORY VALUES: Reviewed. Hemoglobin 10.4. Sodium 138, potassium 4.3, carbon dioxide 18, BUN 64, creatinine 5.5. IMAGES: Reviewed. ASSESSMENT, IMPRESSION, AND PLAN: 1. End-stage renal disease. 2. Status post debridement of an ischemic and necrotic abdominal wall fascia with right hemicolectomy and resection of a stenotic colostomy. Drainage of intra-abdominal stool collection. Ileostomy creation. 3. Critically ill, as for now, we will not dialyze today. We will reevaluate dialysis needs tomorrow. Antibiotic per ID. Keep on IV fluid. Watch blood sugar as he tends to have very labile blood sugar. Wean off pressors. 4. Very poor overall condition and prognosis. <ELECTRONICALLY SIGNED> By: Pollo Arenas MD 09/04/17 [id number] [id number] Pollo Arenas MD /nt
--- NOTE | ~2017-08-29 | HC ---
[facility] [place] [address] CONSULTATION Name: COYLEJOHANA Room #: 245-P [facility] IN .R.#: [id number] Admission: 08/29/17 Attend Phys: Norma Zuniga MD, Discharge: Date of : 68 Report #: [id number] THIS REPORT FOR: //name// CC: Tung Zuniga DATE OF SERVICE: 08/30/2017 CHIEF COMPLAINT: Sacral pressure ulceration. HISTORY OF PRESENT ILLNESS: This is a 47-year-old white male patient with whom we are familiar from the Wound Care Service. He has had multiple pressure ulcerations to the lower extremities and the sacral region. He has just undergone a right hemicolectomy and ileostomy placement. He states he is having some pain related to the surgical incision, but otherwise, he feels well. PAST MEDICAL HISTORY: Positive for: 1. History of diabetes mellitus with a right colonic mid colon with chronic perforation, now status post right hemicolectomy. 2. Diabetes mellitus. 3. End-stage renal disease. 4. Vasculopathy. 5. Malnutrition. ALLERGIES: YEAST AND MILK. SOCIAL HISTORY: Negative for alcohol or tobacco use. FAMILY HISTORY: Noncontributory. REVIEW OF SYSTEMS: CONSTITUTIONAL: The patient denies fever, chills or weight loss. ENT: The patient denies earache, nasal drainage or sore throat. CARDIOVASCULAR: The patient denies chest pain, palpitations or diaphoresis. PULMONARY: The patient denies cough or shortness of breath. GASTROINTESTINAL: The patient does have a kind of abdominal pain related to a surgical incision. Denies nausea or vomiting. GENITOURINARY: The patient denies any urgency of urination. ORTHOPEDIC: The patient denies pain or swelling of the extremities. Other systems in a 14-point review of systems are negative. PHYSICAL EXAMINATION: VITAL SIGNS: At this time include pulse of 87, respiratory rate of 12, blood pressure of 88/49 and temperature is 97.8. GENERAL: This is a chronically ill-appearing male patient who appears to be in minimal distress. [address] [address] CONSULTATION Name: JOHANA COYLE Debo Room #: 245-P [facility] IN M.R.#: [id number] Admission: 08/29/17 Attend Phys: Norma Zuniga MD, Discharge: Date of : 68 Report #: [id number] HEENT: Head normocephalic. Nose and throat clear. NECK: Supple. LUNGS: Clear. HEART: Regular rhythm. ABDOMEN: Soft. There is tenderness along the midline. There is a Prevena wound VAC in place. The incision line is not visualized. He has an ileostomy that seems to be functioning well. PELVIS: Examination of the pelvic region demonstrates stage 4 sacral pressure ulceration which is relatively clean and granular. There is a little bit of bruising to the granulation tissue, but overall, this is improved since he was last in the hospital. EXTREMITIES: Examination of the extremities demonstrates no edema. He has a small eschar on the right posterior heel, but most of this area is now closed and much improved from before. On the left side, he has a few small eschars on the lateral leg, once again much, much improved. CLINICAL IMPRESSION: 1. Stage IV sacral pressure ulceration, improving. 2. Advanced diabetes mellitus. 3. Stage 3 pressure ulceration of the right heel, almost closed. 4. Stage 3 pressure ulceration of the left leg, nearly closed. 5. Dmumztwl-cz-ykkmdc protein-calorie malnutrition. RECOMMENDATIONS: At this point in time, the patient will need aggressive nutritional support. We will keep the Prevena back in place until surgery deems it appropriate to remove. We will recommend silver alginate and a foam-based dressing to the sacral region. He will need loss air-loss mattress, every 2 hours turning and positioning and Prevalon boots to both lower extremities. The patient is agreeable with the current plan of care. I appreciate being asked to see him in consultation. <ELECTRONICALLY SIGNED> By: Ignacio Baeza MD 08/31/17 [phone] [id number] Ignacio Baeza MD /nt
[~2017-08-29 05:18] MED LIST changes: +LANTUS100 UNIT/M SUBQ; +NOVOLOG FL100 UNIT/M SUBQ; +PROPANOLOL PO; +TRAMADOL 50 MG50 MG PO; +VITAMIN D35000 UNIT PO; +[UNRECOGNIZED DRUG - OTHER] PO
[2017-08-29 06:52] LABS: HEMATOCRIT 33.2 % (42.0-52.0); HEMOGLOBIN 10.9 gm/dL (14.0-18.0); MCH 33.6 pg (26.0-34.0); MCV 101.8 fL (80.0-100.0); RBC 3.26 mil/uL (4.50-6.00); RDW 16.9 % (10.5-14.5)
[2017-08-29 07:00] LABS: CALCIUM 8.5 mg/dL (8.5-10.1); CREATININE 5.3 mg/dL (0.7-1.3); POTASSIUM 4.3 mmol/L (3.5-5.1)
[2017-08-29 13:09] LABS: HEMATOCRIT 32.6 % (42.0-52.0); HEMOGLOBIN 10.6 gm/dL (14.0-18.0); MCH 33.5 pg (26.0-34.0); MCHC 32.5 g/dL (28.0-37.0); RBC 3.17 mil/uL (4.50-6.00); RDW 17.1 % (10.5-14.5); WBC 3.1 thou/uL (4.0-11.0)
[2017-08-29 13:40] LABS: CALCIUM 8.2 mg/dL (8.5-10.1); CREATININE 5.8 mg/dL (0.7-1.3); POTASSIUM 4.8 mmol/L (3.5-5.1)
[2017-08-30] VITALS (77 sets, daily range): BP systolic 69–118; BP diastolic 40–85
[2017-08-30 04:37] LABS: ABSOLUTE NEUTROPHILS 4.9 thou/uL (1.4-8.2); BASOPHILS 0.3 % (0.0-2.0); EOSINOPHILS 0.3 % (0.0-3.0); HEMATOCRIT 31.9 % (42.0-52.0); HEMOGLOBIN 10.4 gm/dL (14.0-18.0); LYMPHOCYTES 13.1 % (24.0-44.0); MCH 33.9 pg (26.0-34.0); MCHC 32.7 g/dL (28.0-37.0); MCV 103.8 fL (80.0-100.0); MONOCYTES 9.2 % (1.0-8.0); PLATELET COUNT 164 thou/uL (150-400); POLYS 77.1 % (36.0-66.0); RBC 3.08 mil/uL (4.50-6.00); RDW 17.7 % (10.5-14.5); WBC 6.4 thou/uL (4.0-11.0)
[2017-08-30 05:10] LABS: ALBUMIN 1.6 g/dL (3.4-5.0); CALCIUM 7.7 mg/dL (8.5-10.1); CREATININE 5.5 mg/dL (0.7-1.3); POTASSIUM 4.3 mmol/L (3.5-5.1); TOTAL BILIRUBIN 0.5 mg/dL (<0.1-1.0); TOTAL PROTEIN 4.8 g/dL (6.4-8.2)
[2017-08-31] VITALS (36 sets, daily range): BP systolic 70–157; BP diastolic 35–73
[2017-08-31 05:23] LABS: BASOPHILS 0.3 % (0.0-2.0); EOSINOPHILS 0.3 % (0.0-3.0); HEMATOCRIT 34.7 % (42.0-52.0); HEMOGLOBIN 10.9 gm/dL (14.0-18.0); LYMPHOCYTES 9.2 % (24.0-44.0); MCH 33.6 pg (26.0-34.0); MCHC 31.5 g/dL (28.0-37.0); MCV 106.8 fL (80.0-100.0); MONOCYTES 6.2 % (1.0-8.0); PLATELET COUNT 182 thou/uL (150-400); RBC 3.25 mil/uL (4.50-6.00); RDW 17.6 % (10.5-14.5)
[2017-08-31 05:32] LABS: CALCIUM 8.6 mg/dL (8.5-10.1); CREATININE 5.9 mg/dL (0.7-1.3); POTASSIUM 5.1 mmol/L (3.5-5.1)
[2017-09-01] VITALS (27 sets, daily range): BP systolic 86–140; BP diastolic 42–75
[2017-09-01 05:17] LABS: ABSOLUTE NEUTROPHILS 3.7 thou/uL (1.4-8.2); BASOPHILS 0.8 % (0.0-2.0); LYMPHOCYTES 21.2 % (24.0-44.0); MCH 33.5 pg (26.0-34.0); MCHC 32.6 g/dL (28.0-37.0); MCV 102.7 fL (80.0-100.0); MONOCYTES 6.4 % (1.0-8.0); PLATELET COUNT 185 thou/uL (150-400); POLYS 69.6 % (36.0-66.0); RBC 2.63 mil/uL (4.50-6.00); RDW 17.2 % (10.5-14.5); WBC 5.3 thou/uL (4.0-11.0)
[2017-09-01 05:27] LABS: HEMOGLOBIN 8.8 gm/dL (14.0-18.0)
[2017-09-01 05:41] LABS: CREATININE 3.8 mg/dL (0.7-1.3); POTASSIUM 3.6 mmol/L (3.5-5.1)
[2017-09-02 03:27] VITALS: BP 97/56
[2017-09-02 06:15] VITALS: BP 101/59
[2017-09-02 06:31] VITALS: BP 98/60
[2017-09-02 17:00] VITALS: BP 107/64
[2017-09-02 19:43] VITALS: BP 97/54
[2017-09-03 04:42] VITALS: BP 116/70
[2017-09-03 08:00] VITALS: BP 104/58
[2017-09-03 15:30] VITALS: BP 103/61
[2017-09-03 19:33] VITALS: BP 88/47
[2017-09-04 05:54] VITALS: BP 98/65
[2017-09-04 07:27] LABS: ABSOLUTE NEUTROPHILS 3.7 thou/uL (1.4-8.2); BASOPHILS 0.6 % (0.0-2.0); EOSINOPHILS 2.4 % (0.0-3.0); HEMATOCRIT 25.5 % (42.0-52.0); HEMOGLOBIN 8.1 gm/dL (14.0-18.0); LYMPHOCYTES 19.4 % (24.0-44.0); MCH 33.5 pg (26.0-34.0); MCHC 31.7 g/dL (28.0-37.0); MCV 105.7 fL (80.0-100.0); MONOCYTES 7.7 % (1.0-8.0); PLATELET COUNT 132 thou/uL (150-400); POLYS 69.9 % (36.0-66.0); RBC 2.41 mil/uL (4.50-6.00); RDW 16.8 % (10.5-14.5); WBC 5.3 thou/uL (4.0-11.0)
[2017-09-04 07:31] LABS: CALCIUM 8.4 mg/dL (8.5-10.1); CREATININE 4.8 mg/dL (0.7-1.3); POTASSIUM 4.8 mmol/L (3.5-5.1)
[2017-09-04 17:45] VITALS: BP 99/66
[2017-09-04 21:02] VITALS: BP 105/60
[2017-09-05 03:00] VITALS: BP 129/74
[2017-09-05 08:45] VITALS: BP 96/50
[2017-09-05] MEDS ORDERED: MIDODRINE HCL 55 M1 PO (14:54)
[2017-09-05] MEDS ORDERED: MEROPENEM-500 MG/50 IVPB (14:57)
[2017-09-05] MEDS ORDERED: MYCAMINE100 MG IV (14:57)
[2017-09-05 16:50] LABS: HEMATOCRIT 24.4 % (42.0-52.0); HEMOGLOBIN 7.7 gm/dL (14.0-18.0); MCH 33.4 pg (26.0-34.0); MCHC 31.4 g/dL (28.0-37.0); MCV 106.3 fL (80.0-100.0); PLATELET COUNT 144 thou/uL (150-400); RDW 16.6 % (10.5-14.5)
[2017-09-05 17:13] LABS: ABSOLUTE NEUTROPHILS 1.4 thou/uL (1.4-8.2); HYPOCHROMASIA 2+; MACROCYTES 1+; METAMYELOCYTES 1 %
[2017-09-05 17:14] LABS: POLYCHROMASIA SLIGHT
== END 2017-09-05 16:30 | DRG 853 ==
LOC: ICU 05:18 → TBA 05:18 → PRE 07:56 → ICU 18:16 → 4S 09-01 18:34
PROVIDERS: Anesthesiology; Internal Medicine Infectious Disease; Specialist; Surgery
DX: A41.9 Sepsis, unspecified organism (principal); K63.1 Perforation of intestine (nontraumatic); N18.6 End stage renal disease; R65.21 Severe sepsis with septic shock; L89.154 Pressure ulcer of sacral region, stage 4; L89.523 Pressure ulcer of left ankle, stage 3; L89.614 Pressure ulcer of right heel, stage 4; E43 Unspecified severe protein-calorie malnutrition; K43.0 Incisional hernia with obstruction, without gangrene; K90.41 Non-celiac gluten sensitivity; K56.50 Intestinal adhesions [bands], unspecified as to partial versus complete obstruction; K63.0 Abscess of intestine; K81.0 Acute cholecystitis; E10.51 Type 1 diabetes mellitus with diabetic peripheral angiopathy without gangrene; K90.0 Celiac disease; K43.5 Parastomal hernia without obstruction or gangrene; E03.9 Hypothyroidism, unspecified; F32.9 Major depressive disorder, single episode, unspecified; R62.7 Adult failure to thrive; Z89.429 Acquired absence of other toe(s), unspecified side; Z93.3 Colostomy status; Z93.1 Gastrostomy status; Z88.8 Allergy status to other drugs, medicaments and biological substances; Z91.011 Allergy to milk products; Z79.899 Other long term (current) drug therapy
CPT/HCPCS: 10078; 10102; 32100; 50010; 50093; 50101; 50249; 50290; 50331; 50386; 50555; 50953; 50962; 51712; 52265; 53307; 54118; 56462; 56524; 56525; 56526; 56527; 56530; 57092; 62110; 62900; 70005

== ENCOUNTER 2017-09-06 09:55 | Emergency (ER) | payer OTHER ==
[~2017-09-06] VITALS: Ht 190.5 cm; Wt 99.8 kg
--- NOTE | ~2017-09-06 | EKG ---
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
[~2017-09-06 09:55] MED LIST changes: +MEROPENEM-500 MG/50 IVPB; +MIDODRINE HCL 55 M1 PO; +MYCAMINE100 MG IV
[2017-09-06 10:30] LABS: ABSOLUTE NEUTROPHILS 3.6 thou/uL (1.4-8.2); BASOPHILS 0.1 % (0.0-2.0); EOSINOPHILS 0.1 % (0.0-3.0); HEMATOCRIT 26.2 % (42.0-52.0); LYMPHOCYTES 6.8 % (24.0-44.0); MCH 33.8 pg (26.0-34.0); MCHC 30.6 g/dL (28.0-37.0); MCV 110.4 fL (80.0-100.0); MONOCYTES 5.6 % (1.0-8.0); PLATELET COUNT 137 thou/uL (150-400); POLYS 87.4 % (36.0-66.0); RBC 2.37 mil/uL (4.50-6.00); RDW 17.2 % (10.5-14.5); WBC 4.1 thou/uL (4.0-11.0)
[2017-09-06 10:49] LABS: ALBUMIN 1.4 g/dL (3.4-5.0); ANION GAP 18 mmol/L (7-16); BUN 27 mg/dL (7-18); CALCIUM 8.5 mg/dL (8.5-10.1); CHLORIDE 99 mmol/L (98-107); CO2 17 mmol/L (21-32); DIRECT BILIRUBIN 0.1 mg/dL (<0.1-0.3); LIPASE 39 U/L (73-393); POTASSIUM 4.8 mmol/L (3.5-5.1); SGOT 19 U/L (15-37); SGPT 10 U/L (30-65); SODIUM 134 mmol/L (136-145); TOTAL BILIRUBIN 0.4 mg/dL (<0.1-1.0); TOTAL PROTEIN 4.9 g/dL (6.4-8.2); TROPONIN-I < 0.04 ng/mL (<0.06)
[2017-09-06 10:51] LABS: CREATININE 3.7 mg/dL (0.7-1.3); GLUCOSE 525 mg/dL (74-106)
[2017-09-06 11:16] LABS: ANISOCYTOSIS 1+; MACROCYTES 1+; OVALOCYTES FEW
[2017-09-06 12:59] LABS: CALCIUM 8.5 mg/dL (8.5-10.1); CREATININE 3.8 mg/dL (0.7-1.3); POTASSIUM 4.9 mmol/L (3.5-5.1)
[2017-09-06 14:15] VITALS: BP 90/47
== END 2017-09-06 14:50 ==
LOC: ER 09:55
PROVIDERS: Nurse Practitioner
DX: E11.65 Type 2 diabetes mellitus with hyperglycemia (principal); I95.9 Hypotension, unspecified; E87.2 Acidosis; E11.22 Type 2 diabetes mellitus with diabetic chronic kidney disease; N18.6 End stage renal disease; M19.90 Unspecified osteoarthritis, unspecified site; F41.9 Anxiety disorder, unspecified; F32.9 Major depressive disorder, single episode, unspecified; E03.9 Hypothyroidism, unspecified; Z86.2 Personal history of diseases of the blood and blood-forming organs and certain disorders involving the immune mechanism; Z99.2 Dependence on renal dialysis; Z79.4 Long term (current) use of insulin; Z91.011 Allergy to milk products; Z91.018 Allergy to other foods

== ENCOUNTER 2017-09-07 06:11 | Inpatient (IN) | payer OTHER ==
[2017-09-07] VITALS (45 sets, daily range): BP systolic 64–156; BP diastolic 32–119
[~2017-09-07] VITALS: Ht 193 cm; Wt 66.7 kg
--- NOTE | ~2017-09-07 | HC ---
[facility] [place] [address] CONSULTATION Name: JOHANA COYLE Room #: 445-P [facility] IN ..#: [id number] Admission: 09/07/17 Attend Phys: Ambrosio Garcia MD Discharge: Date of : 68 Report #: [id number] THIS REPORT FOR: //name// CC: FAM unknown Ambrosio Garcia PALLIATIVE CARE CONSULTATION CHIEF COMPLAINT: Acute respiratory failure. HISTORY OF PRESENT ILLNESS: The patient is a 47-year-old male who was initially admitted from [facility]. He had to be intubated secondary to acute respiratory failure. The patient had initially been found to have DKA and also has a stage 4 sacral decubitus ulcer. He is status post exploratory laparotomy recently with adhesiolysis and subsequently has had abdominal drainage with 2 FLORIDALMA drains. Additionally, he has continued Merrem and micafungin secondary to this and he is persistently on hemodialysis and during the stay, he has had hypotension, was able to be successfully extubated and then placed on nasal cannula, which he is on today. The patient has severe protein-calorie malnutrition. He has had a significant course of multiple diagnoses. He has had a hemicolectomy and surgical ostomy. He has had multiple digit amputations previously. Unfortunately, the patient has had recurrent admissions secondary to these difficulties. Today, the patient reports that he is improved. He states that he is concerned about the possibility of recurrence of sepsis and recurrent admission. He is also concerned about the status of his wound, which seems to have worsened. The patient is concerned overall for his ability to improve. I did discuss his level of pain, which gets confined mostly to the sacral area. He reports the pain medication does alleviate it somewhat and positioning changes has helped. He denies any consistent shortness of breath at this point in time. PAST MEDICAL HISTORY: Significant for end-stage renal disease, severe protein-calorie malnutrition, diabetes mellitus, metabolic acidosis and currently peripheral artery disease, surgical ostomy, status post hemicolectomy, multiple digit amputations, hypothyroidism, anxiety, depression, lumbar diskectomy, gastric bypass, right tib-fib repair, panniculectomy. PRIMARY CARE: Tung Morillo MD SOCIAL HISTORY: The patient is and spouse has been here at the hospital multiple times, not currently available for my visit. Not currently smoke or significant alcohol use. The patient was previously living at [facility]. ALLERGIES: YEAST AND MILK. MEDICATIONS: Reviewed. Medication list as per his hospital list currently. [address] [address] CONSULTATION Name: JOHNAA COYLE Room #: 445-P [facility] IN [facility]#: [id number] Admission: 09/07/17 Attend Phys: Ambrosio Garcia MD Discharge: Date of : 68 Report #: [id number] REVIEW OF SYSTEMS: GENERAL: Denies any current fevers and denies chills. Does report that he has had significant weight fluctuations in the past. CARDIOVASCULAR: Denies chest pain, palpitations. Does have diffuse edema noted. LUNGS: Denies particular shortness of breath at this current point in time. ABDOMEN: Denies significant nausea. He is tolerating p.o. at this time. PHYSICAL EXAMINATION: VITAL SIGNS: Temperature 36.8, pulse 95, respirations 20, blood pressure 98/53, 100% on nasal cannula. GENERAL: The patient is alert and he is oriented x 3. He is in no acute distress at this time. HEENT: Extraocular muscles appear to be intact. Does have some mild conjunctival injection bilaterally. CARDIOVASCULAR: Regular rate and rhythm without murmur. LUNGS: Appear to be clear to auscultation. No wheezes, rales or rhonchi at this current point. ABDOMEN: He does have some tenderness to palpation, but positive bowel sounds noted. EXTREMITIES: Does have diffuse edema noted. LABORATORY DATA: These include hemoglobin 6.9, platelets 138, creatinine 3.7. ASSESSMENT AND PLAN: 1. Acute on chronic respiratory failure, hypoxic. At this time, he is improved with his overall status. I did discuss the possibility of this recurrence and if he would want to be ventilated again. The patient reports that he would like to continue to be full code at this time. He is not currently amenable to changes in code status. I did discuss if he know the percentages and risks involved with that. I did give him my contact information if he makes any changes with regards to this. I did discuss that advanced care directives can be very specific if necessary for the patient. I did also discuss the risk of recurrence of infection and sepsis as well as altered mental status. I thoroughly discussed possibilities of other interventions and surgical interventions in the future. The patient would like to be fully aggressive at this time. I spent approximately 35 minutes on discussion of advanced care planning at today's visit today. I gave him my contact information with regards to that. 2. Severe sepsis. He is recovering at this time, appears to be improved overall. I did discuss that there is a possibility of this recurrence. He is aware of this and had mentioned this to me as well. He states that he will consider whether or not he would want to have all these interventions in a future date if this were to recur for him. 3. End-stage renal disease. Did discuss this current care. He appears to [facility] [address] [place] [address] CONSULTATION Name: JOHANA COYLE Room #: 445-P [facility] IN ..#: [id number] Admission: 09/07/17 Attend Phys: Ambrosio Garcia MD Discharge: Date of : 68 Report #: [id number] tolerate dialysis well at this current point in time. The patient would like to continue at this time. 4. Diabetes with diabetic ketoacidosis. Again, the patient had this episode previously. There is a possibility of recurrence, especially with recurrent illness. Did discuss this at this time. The patient is considering options with regards to this, but wants to be fully aggressive at this current point in time. I will sign off at this point, but please feel free to reconsult me for any questions regarding this care and I have given him my contact information for future reference. Thank you very much for the consult. By: 1528 1731 Tulio Gerard DO /nt
--- NOTE | ~2017-09-07 | EKG ---
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[facility] : 1970 Requested By: Jorge Avalos Order Number: [id number] MD: Christ Lee Measurements Intervals [place] Rate: 136 P: [place]: QRS: 34 QRSD: 115 T: 123 QT: 362 QTc: 545 Interpretive Statements Atrial fibrillation Low voltage, extremity leads Minimal ST depression, anterolateral leads Compared to ECG 06/06/2017 09:02:50 Atrial fibrillation is replaced sinus rhythm nonspecific ST segment abnormality is now present Electronically Signed On 09-10-2017 13:17:28 CDT by Christ Lee [email or web address] <ELECTRONICALLY SIGNED> By: Christ Lee MD, [facility] 09/10/17 1317 0737 0737 Christ Lee MD, [facility] /EPI
--- NOTE | ~2017-09-07 | HC ---
[facility] [place] [address] CONSULTATION Name: COYLEJOHANA Room #: 243-P [facility] IN [facility].#: [id number] Admission: 09/07/17 Attend Phys: Ambrosio Garcia MD Discharge: Date of : 68 Report #: [id number] THIS REPORT FOR: //name// CC: FAM unknown Ambrosio Garcia DATE OF SERVICE: 09/07/2017 CHIEF COMPLAINT: Sacral and lower extremity ulcerations. HISTORY OF PRESENT ILLNESS: This is a 47-year-old male patient well known to the wound care service, was recently discharged from the hospital. He has developed hyperglycemia, metabolic acidosis and respiratory failure requiring intubation, mechanical ventilation and is currently in ICU. We have followed him for quite some time for sacral ulcers and lower extremity ulcers, all of which have been improving. The patient is not able to provide any information about himself as he is minimally responsive on a ventilator in the ICU. PAST MEDICAL HISTORY: Positive for history of diabetes mellitus, significant neuropathy, history of anxiety, depression, hypertension, hypothyroidism, lumbar diskectomy, previous gastric bypass, end-stage renal disease, requiring dialysis, history of DKA, recent colostomy. SOCIAL HISTORY: Negative for current alcohol or tobacco use. FAMILY HISTORY: Noncontributory. REVIEW OF SYSTEMS: Unable to be obtained due to the patient's mental status. PHYSICAL EXAMINATION: VITAL SIGNS: At this time include pulse 80, respiration 24, blood pressure . GENERAL: This is a chronically ill-appearing male patient who appears to be in no distress. HEAD: Normocephalic. NOSE: Clear. THROAT: Demonstrates orotracheal intubation. NECK: Supple. LUNGS: Diminished. HEART: Regular rhythm. ABDOMEN: Soft. Midline surgical incision is intact with no separation, no evidence of infection. Ileostomy appears to be functioning well. Abdomen is soft, nontender. EXTREMITIES: Her sacral region shows a stage IV pressure ulceration that appears to be in a good stage of healing with good granulation tissue. There is some bruising of granulation tissue. Lower extremities demonstrate some [facility] [address] [place] [address] CONSULTATION Name: JONNAJOHANA Room #: 243-P ADM IN ..#: [id number] Admission: 09/07/17 Attend Phys: Ambrosio Garcia MD Discharge: Date of : 68 Report #: [id number] crusting and scabbing to the right heel. This area is mostly closed. Left lateral lower leg has scant areas of superficial eschar, although most of the ulceration, they are closed. LABORATORY DATA: Sodium 142, potassium 4.1, chloride 101, CO2 12, BUN 38, creatinine 5.0. Glucose 587. Albumin is low at 1.7. CLINICAL IMPRESSION: 1. Stage 4 sacral pressure ulceration which has slowly been improving. 2. Stage 4 pressure ulcer of the right heel, mostly closed. 3. Stage 4 pressure ulcer in the left lateral ankle, mostly closed. 4. Respiratory failure. 5. Diabetes mellitus. 6. Significant diabetic neuropathic complications. 7. Diabetic ketoacidosis and shock. RECOMMENDATIONS: At this point in time, the patient will need a low-air mattress. Will recommend silver alginate and foam dressing to the sacral region, q.2h. turning, repositioning. Prevalon boots to both lower extremities, nutritional support max to maintain active wound healing. We will monitor the FLORIDALMA drains that are in place. Continue with Prevena VAC over his abdominal incision line, agree with continued current medications. I appreciate being asked to see him again in consultation. <ELECTRONICALLY SIGNED> By: Ignacio Baeza MD 09/08/17 [phone] Ignacio Baeza MD /nt
--- NOTE | ~2017-09-07 | HC ---
[facility] [place] [address] CONSULTATION Name: JOHANA COYLE Room #: 243-P [facility] IN ..#: [id number] Admission: 09/07/17 Attend Phys: Ambrosio Garcia MD Discharge: Date of : 68 Report #: [id number] THIS REPORT FOR: //name// CC: FAM unknown Ambrosio Garcia REASON FOR CONSULTATION: I was asked to evaluate concerning septic shock. HISTORY OF PRESENT ILLNESS: The patient is a 47-year-old with diabetes, peripheral vascular disease, who had just been discharged on 09/05 to [facility] after his hospitalization for right-sided megacolon and ischemia with pericolonic abscess requiring resection. He did well postoperatively. He is now postoperative day #9. He was at dialysis and became hypotensive, less responsive, presents to the Emergency Room in DKA, hypotensive, hypothermic, respiratory failure, now intubated. He is on FiO2 of 40%. He is sedated, on Levophed drip. He has received IV fluids. His ileostomy is functioning well. He has a right chest dialysis catheter, which has been functioning. No gross aspiration identified. ALLERGIES: Include GLUTEN and LACTOSE INTOLERANCE. MEDICATIONS: As noted on his MAR, which were reviewed. He was on micafungin and meropenem as he was completing his course of treatment for the intra-abdominal abscess. He was given vancomycin and Zosyn. Other medicines as noted on his MAR. PAST MEDICAL HISTORY, FAMILY HISTORY AND SOCIAL HISTORY: Unchanged from his recent consultation. REVIEW OF SYSTEMS: The patient unable to give any review of systems. He does have peripheral IV in the left arm. He has a right chest dialysis catheter. He is orally intubated. He has an NG tube in place. He has an ileostomy. He has 2 FLORIDALMA drains in the lower abdomen. He has chronic sacral decubiti. PHYSICAL EXAMINATION: VITAL SIGNS: He is hypothermic. Blood pressure 89/46, heart rate 86. He is on FiO2 of 40%. GENERAL: He was pale. Did arouse to painful stimulus. NECK: Supple. Orally intubated. LUNGS: Clear anteriorly and laterally. HEART: Regular, without murmur. ABDOMEN: Soft, did not elicit any tenderness reaction. Ileostomy unremarkable with good stool output. FLORIDALMA drains with serosanguineous output. Incision with incisional VAC in place. EXTREMITIES: Unremarkable with previous amputations to his fingers and toes. Sacrum not inspected. [place] [address] CONSULTATION Name: JOHANA COYLE Room #: [facility] IN [facility]#: [id number] Admission: 09/07/17 Attend Phys: Ambrosio Garcia MD Discharge: Date of : 68 Report #: [id number] LABORATORY STUDIES: Sodium 141, potassium 4.6, bicarbonate 8, creatinine 5, glucose 694, albumin of 1.6. Hemoglobin 6.8; platelet count 252,000; WBC 7.9 with 81% segs; 14% lymphs. ABG on admission showed a pO2 of 107, pCO2 of 18, pH 6.77, lactate 2.4. AST 13, bilirubin 0.5, ALT 10, alkaline phosphatase 160. Repeat blood cultures are pending. Chest x-ray, dense atelectasis, infiltrate left lower lobe; mild atelectasis right lower lobe. IMPRESSION: A 47-year-old with diabetic ketoacidosis and shock, concerned for underlying infectious cause, although his white count is normal. Difficult to assess in a patient with his degree of vasculopathy. It does appear that his abdomen is reasonably soft and has reasonable bowel function. Source would include healthcare-associated pneumonia versus central venous catheter infection. He did have a walled off pericolonic abscess previously. If he does not show continued signs of improvement, will need repeat imaging of his abdomen by CAT scan. It appears that the FLORIDALMA drains are putting out serous fluid without evidence of any purulence. I have discussed with ICU team. Continue with full support. Agree with broad antibiotic coverage including antifungal, gram-negative and gram-positive coverage. <ELECTRONICALLY SIGNED> By: Jorge Alcantara MD 09/07/17 1825 1134 1253 Jorge Alcantara MD /nt
--- NOTE | ~2017-09-07 | HC ---
[facility] [place] [address] CONSULTATION Name: JOHANA COYLE Room #: 445-P [facility] IN [facility]#: [id number] Admission: 09/07/17 Attend Phys: Ambrosio Garcia MD Discharge: Date of : 68 Report #: [id number] THIS REPORT FOR: //name// CC: FAM unknown Ambrosio Garcia PULMONARY CONSULTATION REASON FOR CONSULTATION: Acute respiratory failure. HISTORY OF PRESENT ILLNESS: The patient is a 47-year-old white male who was brought to the Emergency Room with altered mental status. He was subsequently intubated. A Pulmonary consultation was requested. The patient has severe multiple medical problems. This includes diabetes mellitus type 1 that is felt to be a brittle, end-stage renal disease. He recently underwent extensive abdominal surgery. He resides at a nursing facility. The patient was seen in the Emergency Room on 09/06/2017 hypotension and generalized weakness following his dialysis. His blood pressure was said to be in the 60 mmHg systolic following dialysis. Blood pressure improved somewhat. When seen in the ER, his glucose was elevated at 544, electrolytes showing evidence of moderate metabolic acidosis. The patient was given IV fluids and albumin and was felt to be stable and discharged back to facility. On the day of admission, the patient's blood sugar was found to be very elevated. Early in the morning, the patient was found to be sluggish, then became unresponsive. EMS was called. When seen in the ER, the patient was found to be hypotensive. He was subsequently intubated. Pertinent laboratory on this admission, arterial blood gas showed a pH of 6.8, pCO2 of 22, pO2 of 192 and bicarbonate was less than 5. The patient was felt to be in DKA. Insulin drip has been started. Note the patient has end-stage renal disease and is anuric. Currently, he is hypothermic and hypotensive. He appears somnolent. PAST MEDICAL HISTORY: As mentioned above, long-standing history of diabetes mellitus type 1, very brittle; end-stage renal disease, on hemodialysis; peripheral vascular disease; history of partial amputation of multiple digits involving both upper and lower digits; dialysis catheter placements in the past. Recently underwent abdominal surgery for gangrenes, cholecystitis and peritonitis, also as mentioned above. Just recently, the patient underwent laparotomy for lysis of adhesions, hemicolectomy, revision of the colonic stricture and treatment of peritonitis with an apparent bowel perforation with stool contamination. He was found to have failure to thrive recently. [facility] [address] [place] [address] CONSULTATION Name: JOHANA COYLE Room #: 445-P [facility] IN [facility]#: [id number] Admission: 09/07/17 Attend Phys: Ambrosio Garcia MD Discharge: Date of : 68 Report #: [id number] Decubitus ulcer involving the sacrum. Osteoarthritis, anxiety disorder and depression, hypertension, hypothyroidism, retinal detachment with surgery, lumbar diskectomy, lap band gastric bypass surgery, right tib-fib fracture with repair and right hip fracture, status post surgery. PAST SURGICAL HISTORY: As mentioned above, multiple dialysis catheter placements along with partial amputation of digits due to ischemia. ALLERGIES: GLUTEN, REACTIONS NOT SPECIFIED. HE IS ALSO ALLERGIC TO YEAST AND MILK. MEDICATIONS: His home medication list is reviewed. This includes Reglan, Renvela, zinc, Zoloft, Zyprexa, Creon, Tylenol p.r.n., Lovenox 30 mg subq once a day, Aranesp, Synthroid, Glucagon, MiraLax, Lantus, Ultram and insulin supplements. He has recently been on meropenem, micafungin and midodrine. FAMILY HISTORY: Diabetes in both grandparents. His parents are alive. SOCIAL HISTORY: He is and has 2 children. REVIEW OF SYSTEMS: As mentioned above. It is notable for progressive debility, weakness and failure to thrive. Otherwise, not obtained as the patient is intubated. PHYSICAL EXAMINATION: GENERAL: He is somnolent. He is hypotensive. VITAL SIGNS: Temperature currently is 100 degrees Fahrenheit, pulse is 80, respiratory rate is 24 and blood pressure was as low as 65 mmHg systolic. Currently, it is 118/36 mmHg, saturation 100%. HEENT: Normocephalic, atraumatic. NECK: Supple, without lymphadenopathy or thyromegaly. CHEST: Breath sounds are fair. Few scattered crackles. No obvious wheezes. CARDIOVASCULAR: Normal S1, S2. There are no murmurs or gallops. There is no JVD. No carotid bruit. Pulses are 2+/4+ bilaterally. ABDOMEN: Soft, nontender. No organomegaly or masses felt. GENITOURINARY: Deferred. RECTAL: Deferred. EXTREMITIES: No cyanosis, clubbing or edema. LABORATORY DATA: Sodium 136, potassium 6.5, chloride 98, CO2 is less than 5, BUN is 37, creatinine is 4.9 and glucose was 760. Liver enzymes are mildly abnormal. WBC is 7900, hemoglobin is 6.8 and platelets are normal. Albumin 1.6. Arterial blood gas revealed pH of 6.77, pCO2 of 18 and pO2 of 105 on room air. Lactic acid level of 3.7. EKG shows atrial fibrillation. Otherwise, no acute ischemic changes. [address] [address] CONSULTATION Name: JOHANA COYLE Room #: 445-P [facility] IN [facility].#: [id number] Admission: 09/07/17 Attend Phys: Ambrosio Garcia MD Discharge: Date of : 68 Report #: [id number] IMPRESSION: 1. Severe diabetic ketoacidosis with profound acidemia, hyperglycemia. 2. Low-grade fever, hypotension. Probably infectious etiology, need to consider intra-abdominal source given recent abdominal surgery. 3. Acute respiratory failure due to severe diabetic ketoacidosis and acidosis. 4. End-stage renal disease, on hemodialysis. 5. Recent abdominal surgery with lysis of adhesion, hemicolectomy, revision of colonic stricture with abdominal bowel perforation with stool contamination. This is of concern for possible recurrent infection. 6. Diabetes mellitus type 1, brittle, as mentioned above. 7. Peripheral artery disease with multiple partial digit amputations. RECOMMENDATIONS: We will continue mechanical ventilation, wean O2 for saturation 90%. Chest x-ray on admission shows cardiomegaly with left lower lobe atelectasis, without obvious infiltrates. ET tube is around at the lokesh. I will defer management of acid-base disorder to Renal Service and primary team. In terms of his hypotension, low-grade fever, we are concerned about possible infectious source, in particular, given his recent extensive abdominal surgery. Infectious Disease consultation along with CT abdomen and pelvis is recommended. DVT and GI prophylaxis recommended. Thank you for this consultation. <ELECTRONICALLY SIGNED> By: Arcadio Colorado MD 09/13/17 1617 1305 [id number] Arcadio Colorado MD /inés
[2017-09-07 06:22] LABS: HCO3 2.7 mmol/L (22.0-26.0); PO2 107.6 mmHg (80.0-100.0); sO2 90.6 % (92.0-98.0)
[2017-09-07 06:23] LABS: PCO2 18.9 mmHg (35.0-45.0); pH 6.774 (7.360-7.450)
[2017-09-07 06:46] LABS: HEMOGLOBIN 6.8 gm/dL (14.0-18.0); WBC 7.9 thou/uL (4.0-11.0)
[2017-09-07 06:48] LABS: MCH 33.4 pg (26.0-34.0); RBC 2.03 mil/uL (4.50-6.00)
[2017-09-07 06:51] LABS: MCV 128.2 fL (80.0-100.0); PLATELET COUNT 252 thou/uL (150-400)
[2017-09-07 07:06] LABS: BUN 37 mg/dL (7-18); CALCIUM 8.4 mg/dL (8.5-10.1); CHLORIDE 98 mmol/L (98-107); SODIUM 136 mmol/L (136-145)
[2017-09-07 07:10] LABS: ANION GAP 33 mmol/L (7-16); CREATININE 4.9 mg/dL (0.7-1.3)
[2017-09-07 07:11] LABS: ALBUMIN 1.6 g/dL (3.4-5.0); MAGNESIUM 2.3 mg/dL (1.8-2.4); SGOT 13 U/L (15-37); SGPT 10 U/L (30-65); TOTAL BILIRUBIN 0.5 mg/dL (<0.1-1.0); TOTAL PROTEIN 4.7 g/dL (6.4-8.2); TROPONIN-I < 0.04 ng/mL (<0.06)
[2017-09-07 07:13] LABS: CO2 < 5 mmol/L (21-32); POTASSIUM 6.5 mmol/L (3.5-5.1)
[2017-09-07 07:26] LABS: BE(vivo) -27.9 mmol/L (-2 to +3); HCO3 3.8 mmol/L (22.0-26.0); PCO2 22.3 mmHg (35.0-45.0); PO2 192.6 mmHg (80.0-100.0); pH 6.849 (7.360-7.450); sO2 98.2 % (92.0-98.0)
[2017-09-07 07:31] LABS: GLUCOSE 762 mg/dL (74-106)
[2017-09-07 08:00] LABS: ABSOLUTE NEUTROPHILS 6.4 thou/uL (1.4-8.2); ANISOCYTOSIS 1+; METAMYELOCYTES 1 %
[2017-09-07 08:01] LABS: MACROCYTES 2+; OVALOCYTES 1+
[2017-09-07 10:51] LABS: ALBUMIN 1.6 g/dL (3.4-5.0); CALCIUM 8.3 mg/dL (8.5-10.1); PHOSPHORUS 6.5 mg/dL (2.5-4.9)
[2017-09-07 10:56] LABS: POTASSIUM 4.6 mmol/L (3.5-5.1)
[2017-09-07 12:26] LABS: BE(vivo) -19.1 mmol/L (-2 to +3); HCO3 7.5 mmol/L (22.0-26.0); PCO2 20.3 mmHg (35.0-45.0); PO2 116.9 mmHg (80.0-100.0); pH 7.183 (7.360-7.450); sO2 97.4 % (92.0-98.0)
[2017-09-07 13:28] LABS: ALBUMIN 1.7 g/dL (3.4-5.0); CALCIUM 8.3 mg/dL (8.5-10.1); PHOSPHORUS 5.5 mg/dL (2.5-4.9); POTASSIUM 4.1 mmol/L (3.5-5.1)
[2017-09-08] VITALS (59 sets, daily range): BP systolic 65–142; BP diastolic 44–97
[2017-09-08 04:26] LABS: CALCIUM 8.4 mg/dL (8.5-10.1); CREATININE 5.3 mg/dL (0.7-1.3)
[2017-09-08 05:27] LABS: HEMATOCRIT 22.3 % (42.0-52.0); HEMOGLOBIN 7.5 gm/dL (14.0-18.0); MCH 33.9 pg (26.0-34.0); MCHC 33.5 g/dL (28.0-37.0); RBC 2.2 mil/uL (4.50-6.00); RDW 16.2 % (10.5-14.5); WBC 7.2 thou/uL (4.0-11.0)
[2017-09-08 05:53] LABS: MCV 101.4 fL (80.0-100.0)
[2017-09-08 07:54] LABS: BE(vivo) 1.5 mmol/L (-2 to +3); HCO3 24.4 mmol/L (22.0-26.0); PCO2 31.5 mmHg (35.0-45.0); PO2 56.9 mmHg (80.0-100.0); pH 7.507 (7.360-7.450); sO2 92.4 % (92.0-98.0)
[2017-09-09] VITALS (74 sets, daily range): BP systolic 99–156; BP diastolic 69–130
[2017-09-09 05:31] LABS: HEMATOCRIT 20.1 % (42.0-52.0); HEMOGLOBIN 6.7 gm/dL (14.0-18.0)
[2017-09-09 05:32] LABS: MCH 33.7 pg (26.0-34.0); MCHC 33.3 g/dL (28.0-37.0); RBC 1.99 mil/uL (4.50-6.00); RDW 16.3 % (10.5-14.5); WBC 9.1 thou/uL (4.0-11.0)
[2017-09-09 05:53] LABS: ALBUMIN 1.4 g/dL (3.4-5.0); POTASSIUM 3.4 mmol/L (3.5-5.1); TOTAL BILIRUBIN 0.3 mg/dL (<0.1-1.0); TOTAL PROTEIN 4.6 g/dL (6.4-8.2)
[2017-09-09 05:55] LABS: CREATININE 2.9 mg/dL (0.7-1.3)
[2017-09-10] VITALS (21 sets, daily range): BP systolic 100–132; BP diastolic 74–98
[2017-09-10 04:13] LABS: CALCIUM 8.4 mg/dL (8.5-10.1); CREATININE 3.5 mg/dL (0.7-1.3); POTASSIUM 4.3 mmol/L (3.5-5.1)
[2017-09-10 04:25] LABS: HEMATOCRIT 23.9 % (42.0-52.0); HEMOGLOBIN 7.9 gm/dL (14.0-18.0); MCH 31.7 pg (26.0-34.0); MCV 96.1 fL (80.0-100.0); RBC 2.48 mil/uL (4.50-6.00); RDW 22.4 % (10.5-14.5); WBC 7.6 thou/uL (4.0-11.0)
[2017-09-10 09:20] LABS: BE(vivo) -4.3 mmol/L (-2 to +3); HCO3 19.4 mmol/L (22.0-26.0); PCO2 30.3 mmHg (35.0-45.0); PO2 77.9 mmHg (80.0-100.0); pH 7.425 (7.360-7.450)
[2017-09-10 10:49] LABS: BE(vivo) -5.9 mmol/L (-2 to +3); HCO3 17.6 mmol/L (22.0-26.0); PCO2 27.8 mmHg (35.0-45.0); PO2 50.9 mmHg (80.0-100.0); sO2 87.5 % (92.0-98.0)
[2017-09-11] VITALS (18 sets, daily range): BP systolic 96–141; BP diastolic 56–90
[2017-09-11 05:37] LABS: HEMATOCRIT 22.3 % (42.0-52.0); HEMOGLOBIN 7.4 gm/dL (14.0-18.0); MCH 31.8 pg (26.0-34.0); MCHC 33.4 g/dL (28.0-37.0); MCV 95.3 fL (80.0-100.0); RBC 2.33 mil/uL (4.50-6.00); RDW 22.1 % (10.5-14.5); WBC 8.8 thou/uL (4.0-11.0)
[2017-09-11 05:54] LABS: POTASSIUM 4.3 mmol/L (3.5-5.1)
[2017-09-11 05:55] LABS: CREATININE 4.5 mg/dL (0.7-1.3)
[2017-09-12] VITALS (10 sets, daily range): BP systolic 82–146; BP diastolic 57–80
[2017-09-12 05:22] LABS: HEMATOCRIT 22.4 % (42.0-52.0); HEMOGLOBIN 7.4 gm/dL (14.0-18.0); MCH 31.8 pg (26.0-34.0); MCHC 32.9 g/dL (28.0-37.0); MCV 96.7 fL (80.0-100.0); RBC 2.32 mil/uL (4.50-6.00); WBC 8.5 thou/uL (4.0-11.0)
[2017-09-12 05:30] LABS: CALCIUM 8.2 mg/dL (8.5-10.1); POTASSIUM 4.2 mmol/L (3.5-5.1)
[2017-09-12 05:42] LABS: CREATININE 2.8 mg/dL (0.7-1.3)
[2017-09-13 03:22] VITALS: BP 100/55
[2017-09-13 05:31] LABS: WBC 4.2 thou/uL (4.0-11.0)
[2017-09-13 05:32] LABS: HEMOGLOBIN 6.9 gm/dL (14.0-18.0); MCH 31.7 pg (26.0-34.0); MCHC 32.7 g/dL (28.0-37.0); MCV 97.1 fL (80.0-100.0); RBC 2.16 mil/uL (4.50-6.00); RDW 22.1 % (10.5-14.5)
[2017-09-13 05:49] LABS: CALCIUM 8.3 mg/dL (8.5-10.1); CREATININE 3.7 mg/dL (0.7-1.3); POTASSIUM 4.4 mmol/L (3.5-5.1)
[2017-09-13 08:00] VITALS: BP 98/53
[2017-09-14 08:45] VITALS: BP 110/73
[2017-09-14 16:20] VITALS: BP 113/85
[2017-09-14 17:09] LABS: C. DIFFICILE TOXIN GENE NAA Negative (Negative)
[2017-09-14 19:58] VITALS: BP 111/68
[2017-09-15 03:16] LABS: ABSOLUTE NEUTROPHILS 1.5 thou/uL (1.4-8.2); HEMOGLOBIN 6.8 gm/dL (14.0-18.0); MCHC 32.1 g/dL (28.0-37.0); WBC 3.2 thou/uL (4.0-11.0)
[2017-09-15 03:18] LABS: BASOPHILS 0.7 % (0.0-2.0); EOSINOPHILS 2.5 % (0.0-3.0); HEMATOCRIT 21.3 % (42.0-52.0); LYMPHOCYTES 40.7 % (24.0-44.0); MCH 31.3 pg (26.0-34.0); MCV 97.4 fL (80.0-100.0); MONOCYTES 9.5 % (1.0-8.0); PLATELET COUNT 171 thou/uL (150-400); POLYS 46.6 % (36.0-66.0); RBC 2.19 mil/uL (4.50-6.00); RDW 21.9 % (10.5-14.5)
[2017-09-15 03:21] LABS: CALCIUM 8.2 mg/dL (8.5-10.1); CREATININE 3.1 mg/dL (0.7-1.3); POTASSIUM 4.5 mmol/L (3.5-5.1)
[2017-09-15 03:53] VITALS: BP 133/46
[2017-09-15 08:00] VITALS: BP 131/75
[2017-09-15 16:00] VITALS: BP 105/68
[2017-09-15 17:06] VITALS: BP 105/64; BP 107/69
[2017-09-15 20:55] VITALS: BP 86/61
[2017-09-16 03:30] VITALS: BP 82/50
[2017-09-16 06:09] LABS: HEMOGLOBIN 8.6 gm/dL (14.0-18.0); MCH 30.9 pg (26.0-34.0); MCV 93.9 fL (80.0-100.0); PLATELET COUNT 181 thou/uL (150-400); RBC 2.77 mil/uL (4.50-6.00); RDW 22.7 % (10.5-14.5); WBC 4.1 thou/uL (4.0-11.0)
[2017-09-16 06:21] LABS: CALCIUM 8.3 mg/dL (8.5-10.1); CREATININE 2.4 mg/dL (0.7-1.3)
[2017-09-16 07:24] LABS: ABSOLUTE NEUTROPHILS 2.5 thou/uL (1.4-8.2); ANISOCYTOSIS 3+; HYPOCHROMASIA 2+; MACROCYTES 2+; MICROCYTES 1+
[2017-09-16 08:15] VITALS: BP 74/40
[2017-09-16 17:24] VITALS: BP 72/34
[2017-09-16 17:37] LABS: BE(vivo) -2.6 mmol/L (-2 to +3); HCO3 20.6 mmol/L (22.0-26.0); PCO2 29.8 mmHg (35.0-45.0); PO2 74.3 mmHg (80.0-100.0); pH 7.457 (7.360-7.450); sO2 95.8 % (92.0-98.0)
[2017-09-16 21:22] VITALS: BP 109/58
[2017-09-17] VITALS (19 sets, daily range): BP systolic 72–120; BP diastolic 25–88
[2017-09-17 10:00] LABS: ABSOLUTE NEUTROPHILS 3.3 thou/uL (1.4-8.2); EOSINOPHILS 1.3 % (0.0-3.0); HEMATOCRIT 28.1 % (42.0-52.0); HEMOGLOBIN 9.1 gm/dL (14.0-18.0); LYMPHOCYTES 26.3 % (24.0-44.0); MCH 30.3 pg (26.0-34.0); MCHC 32.3 g/dL (28.0-37.0); MCV 93.7 fL (80.0-100.0); MONOCYTES 6.5 % (1.0-8.0); POLYS 64.9 % (36.0-66.0); RBC 2.99 mil/uL (4.50-6.00); RDW 22.4 % (10.5-14.5); WBC 5.2 thou/uL (4.0-11.0)
[2017-09-17 10:01] LABS: PLATELET COUNT 259 thou/uL (150-400)
[2017-09-17 10:24] LABS: CALCIUM 9.5 mg/dL (8.5-10.1); POTASSIUM 4.3 mmol/L (3.5-5.1)
[2017-09-17 10:30] LABS: CREATININE 3.5 mg/dL (0.7-1.3)
[2017-09-18] VITALS (13 sets, daily range): BP systolic 89–153; BP diastolic 43–91
[2017-09-18 05:23] LABS: BE(vivo) 2.6 mmol/L (-2 to +3); HCO3 26.6 mmol/L (22.0-26.0); PCO2 38.4 mmHg (35.0-45.0); PO2 149.6 mmHg (80.0-100.0); pH 7.458 (7.360-7.450)
[2017-09-18 05:58] LABS: HEMATOCRIT 25.2 % (42.0-52.0); HEMOGLOBIN 8.1 gm/dL (14.0-18.0); MCH 30.7 pg (26.0-34.0); MCHC 32.3 g/dL (28.0-37.0); RBC 2.65 mil/uL (4.50-6.00); RDW 22.6 % (10.5-14.5); WBC 5.2 thou/uL (4.0-11.0)
[2017-09-18 06:01] LABS: CALCIUM 8.6 mg/dL (8.5-10.1); CREATININE 4.2 mg/dL (0.7-1.3); POTASSIUM 4.9 mmol/L (3.5-5.1)
[2017-09-18 22:09] LABS: HEP B SURFACE Ab(ANTI-HBS Reactive (()); HEPATITIS B SURFACE AG Negative (Negative)
[2017-09-19 01:55] LABS: HEMATOCRIT 25.1 % (42.0-52.0); MCH 30.3 pg (26.0-34.0); MCV 94.6 fL (80.0-100.0); RBC 2.66 mil/uL (4.50-6.00); RDW 22.4 % (10.5-14.5)
[2017-09-19 02:07] LABS: CALCIUM 8.2 mg/dL (8.5-10.1)
[2017-09-19 02:20] LABS: CREATININE 2.2 mg/dL (0.7-1.3); POTASSIUM 3.6 mmol/L (3.5-5.1)
[2017-09-19 05:53] VITALS: BP 108/72
[2017-09-19 07:35] VITALS: BP 127/84
[2017-09-19 15:48] VITALS: BP 95/56
[2017-09-19 20:37] VITALS: BP 114/79
[2017-09-20 00:47] VITALS: BP 116/82
[2017-09-20 05:39] VITALS: BP 110/69
[2017-09-20 07:47] VITALS: BP 101/69
[2017-09-20 15:23] VITALS: BP 89/57
[2017-09-20 19:22] VITALS: BP 87/55
[2017-09-21 04:42] VITALS: BP 133/55
[2017-09-21 07:25] VITALS: BP 125/86
[2017-09-21 10:49] VITALS: BP 125/86
[2017-09-21 11:35] VITALS: BP 106/62
[2017-09-21] MEDS ORDERED: REGLAN 5 MG TAB5 MG PO (11:40)
[2017-09-21] MEDS ORDERED: DIPHENHIST25 M1 PO (11:40)
[2017-09-21] MEDS ORDERED: ALBUTEROL2.5 MG/31 INH (11:40)
[2017-09-21] MEDS ORDERED: HEPARIN SO5000 UNIT/ SUBQ (11:40)
== END 2017-09-21 15:00 | DRG 871 ==
LOC: ER 06:11 → ICU 07:05 → EROBS 07:05 → ICU 09:05 → 4S 09-12 17:57 → ICU 09-17 10:56 → 2N 09-18 11:11
PROVIDERS: Emergency Medicine; Hospitalist; Internal Medicine; Internal Medicine Pulmonary Disease; Specialist
PROC: 0BH17EZ Insertion of Endotracheal Airway into Trachea, Via Natural or Artificial Opening (ICD-10-PCS; principal; 2017-09-07)
PROC: 02HV33Z Insertion of Infusion Device into Superior Vena Cava, Percutaneous Approach (ICD-10-PCS; principal; 2017-09-07)
PROC: 5A1945Z Respiratory Ventilation, 24-96 Consecutive Hours (ICD-10-PCS; principal; 2017-09-07)
PROC: 5A1D70Z Performance of Urinary Filtration, Intermittent, Less than 6 Hours Per Day (ICD-10-PCS; 2017-09-08)
PROC: 30233N1 Transfusion of Nonautologous Red Blood Cells into Peripheral Vein, Percutaneous Approach (ICD-10-PCS; 2017-09-09)
PROC: 5A1D70Z Performance of Urinary Filtration, Intermittent, Less than 6 Hours Per Day (ICD-10-PCS; 2017-09-09)
PROC: 5A1D70Z Performance of Urinary Filtration, Intermittent, Less than 6 Hours Per Day (ICD-10-PCS; 2017-09-11)
PROC: 5A09357 Assistance with Respiratory Ventilation, Less than 24 Consecutive Hours, Continuous Positive Airway Pressure (ICD-10-PCS; 2017-09-12)
PROC: 5A1D70Z Performance of Urinary Filtration, Intermittent, Less than 6 Hours Per Day (ICD-10-PCS; 2017-09-13)
PROC: 5A1D70Z Performance of Urinary Filtration, Intermittent, Less than 6 Hours Per Day (ICD-10-PCS; 2017-09-14)
PROC: 5A1D70Z Performance of Urinary Filtration, Intermittent, Less than 6 Hours Per Day (ICD-10-PCS; 2017-09-15)
PROC: 5A1D70Z Performance of Urinary Filtration, Intermittent, Less than 6 Hours Per Day (ICD-10-PCS; 2017-09-18)
PROC: 5A1D70Z Performance of Urinary Filtration, Intermittent, Less than 6 Hours Per Day (ICD-10-PCS; 2017-09-20)
DX: A41.9 Sepsis, unspecified organism (principal); N18.6 End stage renal disease; E43 Unspecified severe protein-calorie malnutrition; J96.21 Acute and chronic respiratory failure with hypoxia; G93.41 Metabolic encephalopathy; K65.9 Peritonitis, unspecified; J18.9 Pneumonia, unspecified organism; L89.524 Pressure ulcer of left ankle, stage 4; L89.624 Pressure ulcer of left heel, stage 4; L89.614 Pressure ulcer of right heel, stage 4; L89.154 Pressure ulcer of sacral region, stage 4; E10.10 Type 1 diabetes mellitus with ketoacidosis without coma; K81.0 Acute cholecystitis; L02.211 Cutaneous abscess of abdominal wall; J98.11 Atelectasis; Z68.1 Body mass index [BMI] 19.9 or less, adult; I12.0 Hypertensive chronic kidney disease with stage 5 chronic kidney disease or end stage renal disease; R65.20 Severe sepsis without septic shock; F41.9 Anxiety disorder, unspecified; F32.9 Major depressive disorder, single episode, unspecified; E03.9 Hypothyroidism, unspecified; E10.51 Type 1 diabetes mellitus with diabetic peripheral angiopathy without gangrene; M19.90 Unspecified osteoarthritis, unspecified site; E10.40 Type 1 diabetes mellitus with diabetic neuropathy, unspecified; I95.9 Hypotension, unspecified; E10.22 Type 1 diabetes mellitus with diabetic chronic kidney disease; E87.6 Hypokalemia; R62.7 Adult failure to thrive; K52.9 Noninfective gastroenteritis and colitis, unspecified; D64.9 Anemia, unspecified; D69.6 Thrombocytopenia, unspecified; Z79.4 Long term (current) use of insulin; Z88.8 Allergy status to other drugs, medicaments and biological substances; Z91.011 Allergy to milk products; Z83.3 Family history of diabetes mellitus; Z93.3 Colostomy status; Z79.899 Other long term (current) drug therapy; Z93.2 Ileostomy status; Z99.2 Dependence on renal dialysis
CPT/HCPCS: 10078; 10081; 10102; 27000; 32100

== ENCOUNTER 2017-09-30 07:25 | Inpatient (IN) | payer OTHER ==
[2017-09-30] VITALS (30 sets, daily range): BP systolic 64–103; BP diastolic 45–81
[~2017-09-30] VITALS: Ht 182.9 cm; Wt 67.0 kg
--- NOTE | ~2017-09-30 | HC ---
[facility] [place] [address] CONSULTATION Name: JOHANA COYLE Room #: 239-P [facility] IN M.R.#: [id number] Admission: 09/30/17 Attend Phys: Zulma North Discharge: Date of : 68 Report #: [id number] THIS REPORT FOR: //name// CC: CHETAN physician/PCP Zulma North DATE OF SERVICE: 09/30/2017 REASON FOR CONSULTATION: I was asked to evaluate concerning sepsis. HISTORY OF PRESENT ILLNESS: The patient was a 47-year-old who presents with hypotension. He has end-stage renal disease and is a brittle diabetic. Recently hospitalized at [facility] on 09/07/2017 through 09/21/2017, where he was diagnosed with diabetic ketoacidosis, respiratory failure with aspiration pneumonia, having completed his treatment for an intra-abdominal abscess following right-sided colitis and perforation due to a stenotic transverse colostomy earlier that month. Although he was very weak, he was discharged on 09/21/2017. There was some concern about his ability to maintain an outpatient dialysis schedule. This morning on the way to dialysis, he was noted to be very weak and hypotensive. I was unable to start dialysis and sent him to the Emergency Room for further evaluation. He does have an ileostomy with liquid output. His last dialysis was on , 2 days ago. No cough or sputum production. No nausea or vomiting. His ostomy output has been reasonable. He has a sacral decubitus, which causes him some discomfort unchanged. He has a right chest dialysis catheter. During his evaluation, his chest x-ray revealed a left perihilar basilar infiltrate. His white count was 11.5 with unremarkable differential. He was given IV antibiotic therapy and fluids and admitted to the Intensive Care Unit. Blood pressure is in the 80s systolic, which is near his baseline. He was fatigued and fairly weak, although was alert and conversational. REVIEW OF SYSTEMS: Denies any chest pain. Has had intermittent cough with no sputum production. Ileostomy has been functioning. No new ulcers or extremity issues. ALLERGIES: YEAST, GLUTEN, MILK. MEDICATIONS: As noted on his MAR, which were reviewed. PAST MEDICAL HISTORY, FAMILY HISTORY AND SOCIAL HISTORY: Unchanged from his previous consultations. PHYSICAL EXAMINATION: VITAL SIGNS: He is afebrile, blood pressure was 88/60, pulse was 80. GENERAL: He was alert and cooperative, was on 2 liters of oxygen per nasal cannula. He was pale. Sacral wound dressed and dry. [facility] [address] [place] [address] CONSULTATION Name: JOHANA COYLE Room #: [address] [place] [address]#: [id number] Admission: 09/30/17 Attend Phys: Zulma North Discharge: Date of : 68 Report #: [id number] CHEST: Clear. HEART: Regular. ABDOMEN: Flat, nontender. Ileostomy was unremarkable. EXTREMITIES: No change in his extremities with multiple digit amputations. LABORATORY STUDIES: Procalcitonin was 2.6. ABG on room air, pO2 is 58, pCO2 33, pH 7.3, lactate was 4. Previously was 7. BNP 8783, bilirubin 0.6, AST 15, ALT 14, alkaline phosphatase 234. Hemoglobin 10, platelet count 254,000, white count 11.5. Chest x-ray, left perihilar basilar nonconsolidative infiltrate. IMPRESSION: A 47-year-old diabetic with end-stage renal disease, marked vasculopathy with hypotension and shock, likely related mostly to volume status. He also has a left lower lobe infiltrate, which may develop into more. PLAN: Would recommend fluid resuscitation and empiric antibiotic coverage, pending cultures. We have blood and sputum cultures that are pending. <ELECTRONICALLY SIGNED> By: Jorge Alcantara MD 10/01/17 1047 1555 194 Jorge Alcantara MD /nt
--- NOTE | ~2017-09-30 | EKG ---
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 : 1970 Requested By: Samir Brown Order Number: [id number] MD: Christ Lee Measurements Intervals [place] Rate: 95 P: 51 HI: 174 QRS: 49 QRSD: 101 T: 58 QT: 388 QTc: 488 Interpretive Statements Sinus rhythm Poor R wave progression Compared to ECG 09/07/2017 07:37:31 Sinus rhythm has replaced atrial fibrillation Electronically Signed On 10-01-2017 12:54:30 CDT by Christ Lee [email or web address] <ELECTRONICALLY SIGNED> By: Christ Lee MD, [facility] 10/01/17 1254 Christ Lee MD, [facility] /EPI
--- NOTE | ~2017-09-30 | HC ---
[facility] [place] [address] CONSULTATION Name: JOHANA COYLE Debo Room #: 455-P [facility] IN ..#: [id number] Admission: 09/30/17 Attend Phys: Zulma North Discharge: 10/05/17 Date of : 68 Report #: [id number] THIS REPORT FOR: //name// CC: CHETAN physician/PCP Zulma North DATE OF SERVICE: 10/02/2017 WOUND CARE CONSULTATION CHIEF COMPLAINT: Sacral decubitus ulcer stage 4. HISTORY OF PRESENT ILLNESS: This is a 47-year-old white male with longstanding history of brittle diabetes and multiple decubitus ulcers, who is rehospitalized now for hypotension and possible sepsis. We have followed the patient for several months for a decubitus ulcer in his sacrococcygeal region stage 4 as well as bilateral heel ulcerations which are unstageable. The patient denies any new ulcerations at this time. The patient denies any other recent illnesses or concerns. The patient does complain of just overall generalized weakness. PAST MEDICAL HISTORY: Significant for end-stage renal disease, on hemodialysis; brittle diabetes with poor control, recurrent hospitalizations for multiple comorbidities, history of colostomy. CURRENT MEDICATIONS: Multiple. I reviewed the patient's medication list. DRUG ALLERGIES: GLUTEN AND MILK. SOCIAL HISTORY: The patient resides in a care facility at this time. REVIEW OF SYSTEMS: CONSTITUTIONAL: The patient denies fevers or chills. NEUROLOGIC: The patient has overall generalized weakness. EYES: No complaints. ENT: No complaints. CARDIAC: The patient denies chest pain, palpitations or peripheral edema. RESPIRATORY: The patient denies shortness of breath, cough or wheezes. GASTROINTESTINAL: The patient has decreased appetite with loose stools. MUSCULOSKELETAL: No complaints. SKIN: There are decubitus ulcers in the sacrococcygeal region and bilateral heels. PHYSICAL EXAMINATION: VITAL SIGNS: Stable. The patient is afebrile. GENERAL: This is alert and oriented x 3, chronically ill appearing white male who is in mild distress secondary to pain. [address] [address] CONSULTATION Name: JONNAJOHANA Debo Room #: 455-[facility] IN M.R.#: [id number] Admission: 09/30/17 Attend Phys: Zulma North Discharge: 10/05/17 Date of : 68 Report #: [id number] HEENT: Normocephalic and atraumatic. Mucous membranes are dry. Pupils are round. Sclerae are white. LUNGS: Clear. HEART: Regular. ABDOMEN: Soft. Colostomy and urostomy is in place appeared to be functioning well. Midline surgical incision is healed. EXTREMITIES: The patient moves all extremities, but slowly. Bilateral heels show unstageable ulcerations with eschar. NEUROLOGIC: Cranial nerves 2-12 grossly intact. Motor and sensory are grossly intact. LABORATORY DATA: Albumin is markedly low at 1.6. IMPRESSION: 1. Chronic stage 4 sacrococcygeal decubitus ulcer. 2. Bilateral heel decubitus ulcers, unstageable, chronic. 3. End-stage renal disease, on hemodialysis. 4. Diabetes mellitus, poorly controlled. 5. Protein-calorie malnutrition, severe. PLAN: At this time, we will continue with silver alginate to the sacrococcygeal ulcer as well as heel protection bilateral heels at all times with foam dressings over both heels. He will have a low air loss mattress and be turned every 2 hours. We will try to maximize the patient's oral supplementation of protein for healing. We will continue all his other current medications. By: [id number] [id number] Ryan Yen MD /nt
--- NOTE | ~2017-09-30 | HC ---
[facility] [place] [address] CONSULTATION Name: JOHANA COYLE Debo Room #: 239-P [facility] IN M.R.#: [id number] Admission: 09/30/17 Attend Phys: Zulma North Discharge: Date of : 68 Report #: [id number] THIS REPORT FOR: //name// CC: CHETAN physician/PCP Zulma North REASON FOR CONSULTATION: End-stage renal disease. HISTORY OF PRESENT ILLNESS: A very well known patient to me. A 47-year-old with very bad diabetes mellitus and multiple hospitalizations for all sort of medical complications. He is also known to have end-stage renal disease, maintained on dialysis every Monday, and Monday. He was brought from his dialysis unit because he was not able to start his dialysis due to being weak and hypotensive. He is known to have chronic . He has peripheral arterial disease with sacral decubitus, multiple digits and toes amputations. He recently has a colonic perforation with an intra-abdominal abscess, status post colostomy and prolonged hospitalizations. He has had numerous nosocomial infections. He was hypotensive when he presented yesterday. He had a lactic acid value of 4.1 and was admitted for further evaluation and management. I am being asked to evaluate his end-stage renal dialysis needs. PAST MEDICAL HISTORY: Numerous and includes the followin. Diabetes mellitus. 2. End-stage renal disease, maintained on dialysis every Monday, Monday and Monday. 3. Numerous abdominal surgeries. 4. Peripheral vascular disease. 5. Numerous decubitus ulcers. 6. Cholecystitis. 7. Peritonitis. 8. Gangrenous digits with amputations. 9. Status post PEG in the past. 10. Right IJ tunneled catheter. 11. Status post colostomy. ALLERGIES: GLUTEN. FAMILY HISTORY: Diabetes mellitus. SOCIAL HISTORY: He has been in different nursing facility. Family has refused to take care of him in the past. MEDICATIONS: 1. Zoloft. 2. Renagel. 3. Insulin. 4. Tramadol. [facility] [address] [place] [address] CONSULTATION Name: JOHANA COYLE Room #: 239-P [facility] IN M.R.#: [id number] Admission: 09/30/17 Attend Phys: Zulma North Discharge: Date of : 68 Report #: [id number] 5. Acetaminophen. 6. Levothyroxine. REVIEW OF SYSTEMS: GENERAL: No fever or chills, but significant weakness. CARDIOVASCULAR: No chest pain or palpitation. PULMONARY: No cough or hemoptysis. GASTROINTESTINAL: No nausea or vomiting. Status post colostomy. GENITOURINARY: Anuric. PHYSICAL EXAMINATION: GENERAL: He is alert, oriented. VITAL SIGNS: Blood pressure 124/95. He is wasted. Significant muscle mass weight. HEAD AND NECK: Right IJ tunneled catheter. CHEST: No crackles. CARDIOVASCULAR: Regular, with no rub. ABDOMEN: Soft, nontender. Colostomy present. LOWER EXTREMITIES: No edema. EXTREMITIES: Multiple missing digits in both upper extremities and lower extremities: LABORATORY DATA: Reviewed. Hemoglobin is 8.8. Sodium is 131, potassium is 5.3, BUN is 25, creatinine is 4.6. Imaging, chest x-ray reviewed, no significant pulmonary edema. ASSESSMENT, IMPRESSION AND PLAN: 1. End-stage renal disease. 2. Hypotension. 3. Chronic comorbid conditions including and not limited to brittle diabetes with blood sugar out of control. 4. Poor malnutrition status, recent abdominal surgeries. 5. We will aim for a dialysis treatment tomorrow. Minimize narcotics. 6. I doubt that this is sepsis; however, ID is managing all of his antibiotics. Cultures are pending. 7. Resume his midodrine. By: [id number] Pollo Arenas MD /nt
[~2017-09-30 07:25] MED LIST changes: +ALBUTEROL2.5 MG/31 INH; +DIPHENHIST25 M1 PO; +HEPARIN SO5000 UNIT/ SUBQ
[2017-09-30] MEDS ORDERED: GABAPENTIN 100100 MG PO (07:43)
[2017-09-30] MEDS ORDERED: HYDRALAZINE 2525 MG PO (07:44)
[2017-09-30] MEDS ORDERED: LISINOPRIL20 MG PO (07:46)
[2017-09-30] MEDS ORDERED: RENVELA800 MG PO (07:47)
[2017-09-30] MEDS ORDERED: TRAMADOL 50 MG50 MG PO (07:47)
[2017-09-30 07:52] LABS: ABSOLUTE NEUTROPHILS 10.3 thou/uL (1.4-8.2); BASOPHILS 0.4 % (0.0-2.0); HEMATOCRIT 31.3 % (42.0-52.0); HEMOGLOBIN 10.1 gm/dL (14.0-18.0); LYMPHOCYTES 7.7 % (24.0-44.0); MCH 31.1 pg (26.0-34.0); MCHC 32.2 g/dL (28.0-37.0); MCV 96.5 fL (80.0-100.0); MONOCYTES 2.6 % (1.0-8.0); PLATELET COUNT 254 thou/uL (150-400); POLYS 89.3 % (36.0-66.0); RBC 3.24 mil/uL (4.50-6.00); RDW 20.6 % (10.5-14.5); WBC 11.5 thou/uL (4.0-11.0)
[2017-09-30 08:04] LABS: ANION GAP 13 mmol/L (7-16); BUN 19 mg/dL (7-18); CALCIUM 10.2 mg/dL (8.5-10.1); CHLORIDE 98 mmol/L (98-107); CO2 22 mmol/L (21-32); CREATININE 4.7 mg/dL (0.7-1.3); GLUCOSE 372 mg/dL (74-106); POTASSIUM 4.8 mmol/L (3.5-5.1); SODIUM 133 mmol/L (136-145)
[2017-09-30 08:12] LABS: ALBUMIN 1.6 g/dL (3.4-5.0); MAGNESIUM 2.2 mg/dL (1.8-2.4); SGOT 15 U/L (15-37); SGPT 14 U/L (30-65); TOTAL BILIRUBIN 0.6 mg/dL (<0.1-1.0); TOTAL PROTEIN 6.3 g/dL (6.4-8.2); TROPONIN-I < 0.04 ng/mL (<0.06)
[2017-09-30 09:16] LABS: BE(vivo) -5.6 mmol/L (-2 to +3); HCO3 18.9 mmol/L (22.0-26.0); PCO2 33.3 mmHg (35.0-45.0); PO2 58.9 mmHg (80.0-100.0); pH 7.373 (7.360-7.450); sO2 90.2 % (92.0-98.0)
[2017-09-30 17:39] LABS: CALCIUM 8.9 mg/dL (8.5-10.1); CREATININE 4.1 mg/dL (0.7-1.3)
[2017-09-30 17:42] LABS: POTASSIUM 6.4 mmol/L (3.5-5.1)
[2017-09-30 22:40] LABS: CALCIUM 9.2 mg/dL (8.5-10.1); CREATININE 4.8 mg/dL (0.7-1.3)
[2017-09-30 22:47] LABS: POTASSIUM 5.1 mmol/L (3.5-5.1)
[2017-10-01] VITALS (35 sets, daily range): BP systolic 92–126; BP diastolic 64–95
[2017-10-01 04:33] LABS: CALCIUM 9.7 mg/dL (8.5-10.1); CREATININE 4.6 mg/dL (0.7-1.3); POTASSIUM 5.3 mmol/L (3.5-5.1)
[2017-10-01 04:38] LABS: BASOPHILS 0.1 % (0.0-2.0); HEMATOCRIT 26.6 % (42.0-52.0); HEMOGLOBIN 8.8 gm/dL (14.0-18.0); LYMPHOCYTES 11.7 % (24.0-44.0); MCH 31.9 pg (26.0-34.0); MCHC 33.2 g/dL (28.0-37.0); MCV 95.9 fL (80.0-100.0); MONOCYTES 2.1 % (1.0-8.0); PLATELET COUNT 180 thou/uL (150-400); POLYS 86.1 % (36.0-66.0); RBC 2.77 mil/uL (4.50-6.00); RDW 20.5 % (10.5-14.5); WBC 10.5 thou/uL (4.0-11.0)
[2017-10-02 00:36] VITALS: BP 136/85
[2017-10-02 05:36] VITALS: BP 103/63
[2017-10-02 06:01] LABS: ABSOLUTE NEUTROPHILS 6.5 thou/uL (1.4-8.2); BASOPHILS 0.2 % (0.0-2.0); HEMATOCRIT 23.4 % (42.0-52.0); HEMOGLOBIN 7.7 gm/dL (14.0-18.0); LYMPHOCYTES 17.8 % (24.0-44.0); MCH 31.7 pg (26.0-34.0); MCHC 32.9 g/dL (28.0-37.0); MCV 96.3 fL (80.0-100.0); MONOCYTES 3.2 % (1.0-8.0); PLATELET COUNT 166 thou/uL (150-400); POLYS 78.8 % (36.0-66.0); RBC 2.43 mil/uL (4.50-6.00); RDW 20.9 % (10.5-14.5); WBC 8.3 thou/uL (4.0-11.0)
[2017-10-02 06:16] LABS: CALCIUM 10.1 mg/dL (8.5-10.1); CREATININE 5.3 mg/dL (0.7-1.3); POTASSIUM 5.5 mmol/L (3.5-5.1)
[2017-10-02 08:00] VITALS: BP 114/68
[2017-10-02 15:10] VITALS: BP 92/61
[2017-10-03 03:21] VITALS: BP 112/64
[2017-10-03 07:00] LABS: ABSOLUTE NEUTROPHILS 3.3 thou/uL (1.4-8.2); BASOPHILS 0.6 % (0.0-2.0); EOSINOPHILS 1.2 % (0.0-3.0); HEMATOCRIT 24.4 % (42.0-52.0); HEMOGLOBIN 8.1 gm/dL (14.0-18.0); LYMPHOCYTES 24.8 % (24.0-44.0); MCH 31.5 pg (26.0-34.0); MCV 95.3 fL (80.0-100.0); MONOCYTES 4.6 % (1.0-8.0); PLATELET COUNT 135 thou/uL (150-400); POLYS 68.8 % (36.0-66.0); RBC 2.56 mil/uL (4.50-6.00); RDW 20.7 % (10.5-14.5); WBC 4.8 thou/uL (4.0-11.0)
[2017-10-03 07:20] LABS: CALCIUM 9.5 mg/dL (8.5-10.1); POTASSIUM 3.9 mmol/L (3.5-5.1)
[2017-10-03 07:22] LABS: CREATININE 3.4 mg/dL (0.7-1.3)
[2017-10-03 08:15] VITALS: BP 116/78
[2017-10-03 17:02] VITALS: BP 106/72
[2017-10-03 19:28] VITALS: BP 119/84
[2017-10-04 08:00] VITALS: BP 127/78
[2017-10-04 16:00] VITALS: BP 93/67
[2017-10-05 04:29] VITALS: BP 81/41
[2017-10-05 08:25] VITALS: BP 98/68
[2017-10-05] MEDS ORDERED: HEPARIN SO5000 UNIT/ SUBQ (12:03)
[2017-10-05] MEDS ORDERED: FAMOTIDINE 10 M10 MG PO (12:03)
[2017-10-05] MEDS ORDERED: ALBUTEROL2.5 MG/31 INH (12:03)
[2017-10-05] MEDS ORDERED: MUCINEX600 MG PO (12:03)
[2017-10-05] MEDS ORDERED: CEFDINIR300 MG PO (12:03)
[2017-10-05] MEDS ORDERED: MIDODRINE HCL 55 M1 PO (12:57)
== END 2017-10-05 17:26 | DRG 871 ==
LOC: ER 07:25 → 4W 08:35 → EROBS 08:35 → ICU 09:31 → 4W 10-01 18:42
PROVIDERS: Emergency Medicine; Hospitalist; Internal Medicine; Nurse Practitioner Acute Care
PROC: 5A1D70Z Performance of Urinary Filtration, Intermittent, Less than 6 Hours Per Day (ICD-10-PCS; principal; 2017-10-01)
PROC: 5A1D70Z Performance of Urinary Filtration, Intermittent, Less than 6 Hours Per Day (ICD-10-PCS; 2017-10-03)
PROC: 5A1D70Z Performance of Urinary Filtration, Intermittent, Less than 6 Hours Per Day (ICD-10-PCS; 2017-10-05)
DX: A41.9 Sepsis, unspecified organism (principal); L89.154 Pressure ulcer of sacral region, stage 4; E43 Unspecified severe protein-calorie malnutrition; N18.6 End stage renal disease; J18.9 Pneumonia, unspecified organism; M31.9 Necrotizing vasculopathy, unspecified; M19.90 Unspecified osteoarthritis, unspecified site; F41.9 Anxiety disorder, unspecified; F32.9 Major depressive disorder, single episode, unspecified; E03.9 Hypothyroidism, unspecified; R65.20 Severe sepsis without septic shock; I95.9 Hypotension, unspecified; L89.600 Pressure ulcer of unspecified heel, unstageable; E10.22 Type 1 diabetes mellitus with diabetic chronic kidney disease; I12.9 Hypertensive chronic kidney disease with stage 1 through stage 4 chronic kidney disease, or unspecified chronic kidney disease; E10.51 Type 1 diabetes mellitus with diabetic peripheral angiopathy without gangrene; D64.9 Anemia, unspecified; Z79.4 Long term (current) use of insulin; Z93.3 Colostomy status; Z93.2 Ileostomy status; Z88.8 Allergy status to other drugs, medicaments and biological substances; Z83.3 Family history of diabetes mellitus; Z91.011 Allergy to milk products
CPT/HCPCS: 10045; 10204; 32100

== ENCOUNTER → 2018-01-03 | Outpatient (CLI) | payer OTHER ==
[~2018-01-03] VITALS: Ht 182.9 cm; Wt 63.5 kg
[~2018-01-03] MED LIST changes: +CEFDINIR300 MG PO; +FAMOTIDINE 10 M10 MG PO; +MUCINEX600 MG PO
[2018-01-03 11:04] VITALS: BP 89/53
[2018-01-03 12:10] LABS: INR 1.1; PROTIME 11.6 Seconds (9.3-11.4)
== END | disposition home or self-care (01) ==
LOC: SPEC 08:00
PROVIDERS: Radiology Vascular & Interventional Radiology
DX: Z45.2 Encounter for adjustment and management of vascular access device (principal); I12.0 Hypertensive chronic kidney disease with stage 5 chronic kidney disease or end stage renal disease; E10.22 Type 1 diabetes mellitus with diabetic chronic kidney disease; E10.10 Type 1 diabetes mellitus with ketoacidosis without coma; N18.6 End stage renal disease; I73.9 Peripheral vascular disease, unspecified; M19.90 Unspecified osteoarthritis, unspecified site; F41.9 Anxiety disorder, unspecified; F32.9 Major depressive disorder, single episode, unspecified; D64.9 Anemia, unspecified; E03.9 Hypothyroidism, unspecified; Z98.890 Other specified postprocedural states; Z79.899 Other long term (current) drug therapy; Z98.0 Intestinal bypass and anastomosis status; Z79.4 Long term (current) use of insulin; Z79.01 Long term (current) use of anticoagulants; Z98.84 Bariatric surgery status